=== PATIENT | male | born 1940 | race Caucasian/White ===

== ENCOUNTER 2017-01-12 15:55 | Emergency (ER) | payer MEDICARE, OTHER ==
--- NOTE | 2017-01-12 16:16 | EDM.PDOC ---
ED HPI GENERAL MEDICAL PROBLEM - General Chief Complaint: Neurological Problem Stated Complaint: Confusion Time Seen by Provider: 01/12/17 16:08 Source of Information: Reports: Patient, Family History Limitations: Reports: Altered Mental Status - History of Present Illness INITIAL COMMENTS - FREE TEXT/NARRATIVE: 76 YO WM presents to ER with complaints of mild expressive aphasia which began at 12pm today. Pt has history of renal transplant 3 years ago. Pt woke this am and had breakfast, went to judaism, and after judaism seemed more confused. Pt is currently alert and oriented x 3. Pt denies any weakness or numbness. Pt denies any fever/chills, no chest pain, no shortness of breath. Pt denies any dysuria/ frequency or urgency. Onset: Today Onset Date: 01/12/17 Onset Time: 12:00 Duration: Hour(s): (4) Location: Reports: Generalized Severity: Mild Improves with: Reports: None Worsens with: Reports: None Associated Symptoms: Reports: Confusion. Denies: Chest Pain, Cough, Diaphoresis , Headaches, Nausea/Vomiting, Rash, Shortness of Breath, Syncope, Weakness - Related Data Allergies Allergy/AdvReac Type Severity Reaction Status Date / Time NSAIDS (Non-Steroidal Allergy unknown Verified 01/12/17 16:31 Anti-Inflamma Home Meds: Home Meds Cholecalciferol (Vitamin D3) [Vitamin D3] 2,000 unit PO DAILY 05/20/13 [History] Famotidine 20 mg PO BEDTIME 05/20/13 [History] Insulin Aspart [Novolog Flexpen] 8 unit SQ TIDM PRN 05/20/13 [History] Insulin Detemir [Levemir] 24 units SUBCUT BID 05/20/13 [History] Magnesium Oxide 500 mg PO DAILY 05/20/13 [History] Multivitamin [Multi-Vitamin Daily] 1 tab PO DAILY 05/20/13 [History] Mycophenolate Mofetil [Cellcept] 750 mg PO DAILY 05/20/13 [History] predniSONE 5 mg PO DAILY 05/20/13 [History] Tacrolimus [Prograf] 1 mg PO DAILY 06/08/13 [History] Aspirin [Children's Aspirin] 81 mg PO DAILY 12/13/13 [History] traZODone 50 mg PO BEDTIME 12/13/13 [History] Alendronate [Fosamax] 70 mg PO Q7D@0600 01/12/17 [History] Calcitriol 0.5 mcg PO MOWEFR 01/12/17 [History] Metoprolol Succinate [Toprol XL] 50 mg PO DAILY 01/12/17 [History] Mycophenolate Mofetil [Cellcept] 500 mg PO DAILY@1800 01/12/17 [History] [place]-3 Fatty Acids/Fish Oil [Fish Oil 1,000 mg Softgel] 1 each PO DAILY [History] Tacrolimus [Prograf] 0.5 mg PO DAILY@1800 01/12/17 [History] Social & Family History - Tobacco Use Second Hand Smoke Exposure: No - Alcohol Use Days Per Week of Alcohol Use: 0 - Recreational Drug Use Recreational Drug Use: No Drug Use in Last 12 Months: No - Living Situation & Occupation Living situation: Reports: , Occupation: Retired ED ROS GENERAL - Review of Systems Review Of Systems: See Below Constitutional: Reports: No Symptoms HEENT: Reports: No Symptoms Respiratory: Reports: No Symptoms Cardiovascular: Reports: No Symptoms Endocrine: Reports: No Symptoms GI/Abdominal: Reports: No Symptoms : Reports: No Symptoms Musculoskeletal: Reports: No Symptoms Skin: Reports: No Symptoms Neurological: Reports: Confusion, Change in Speech. Denies: Dizziness, Headache , Numbness, Paresthesia, Pre-Existing Deficit, Seizure, Syncope, Tremors, Trouble Speaking, Difficulty Walking, Weakness, Gait Disturbance Psychiatric: Reports: No Symptoms Hematologic/Lymphatic: Reports: No Symptoms Immunologic: Reports: No Symptoms - Physical Exam Exam: See Below Exam Limited By: No Limitations General Appearance: Alert, WD/WN, No Apparent Distress Eye Exam: Bilateral Eye: EOMI, PERRL Ears: Normal External Exam, Normal Canal, Hearing Grossly Normal, Normal TMs Nose: Normal Inspection, Normal Mucosa, No Blood Throat/Mouth: Normal Inspection, Normal Lips, Normal Teeth, Normal Gums, Normal Oropharynx, Normal Voice, No Airway Compromise Head Exam: Atraumatic, Normocephalic Neck: Normal Inspection, Supple, Non-Tender, Full Range of Motion Respiratory/Chest: No Respiratory Distress, Lungs Clear, Normal Breath Sounds, No Accessory Muscle Use, Chest Non-Tender Cardiovascular: Normal Peripheral Pulses, Regular Rate, Rhythm, No Edema, No Gallop, No JVD, No Murmur, No Rub GI/Abdominal: Normal Bowel Sounds, Soft, Non-Tender, No Organomegaly, No Distention, No Abnormal Bruit, No Mass Neuro Exam (Abbreviated): Alert, Oriented, CN II-XII Intact, Normal Cognition, Normal Gait, Normal Reflexes, No Motor/Sensory Deficits. No: Disoriented, Slow to Respond, Unresponsive, Memory Loss Remote Events, Memory Loss Recent Events, Abnormal Gait, Abnormal Reflexes, Sensory/Motor Deficit Back Exam: Normal Inspection, Full Range of Motion, NT Extremities: Normal Inspection, Normal Range of Motion, Non-Tender, No Pedal Edema, Normal Capillary Refill Psychiatric: Normal Affect, Normal Mood Skin Exam: Warm, Dry, Intact, Normal Color, No Rash EKG INTERPRETATION EKG Date: 01/12/17 Time: 16:19 Rhythm: NSR Rate (Beats/Min): 63 [place]: Normal ST-T: Normal QT: Normal Comparison: NA - No Prior EKG Course - Vital Signs Last Recorded V/S: Last Vital Signs Temp 35.9 C 01/12/17 16:26 Pulse 89 01/12/17 16:26 Resp 18 01/12/17 16:26 BP 167/52 H 01/12/17 16:26 Pulse Ox 97 01/12/17 16:26 - Orders/Labs/Meds Orders: Active Orders 24 hr Category Date Time Status Accu Check [Blood Glucose Check, Bedside] [RC] ONETIME Care 01/12/17 16:17 Active EKG Documentation Completion [RC] ASDIRECTED Care 01/12/17 16:07 Active Chest 1V Frontal [CR] Stat Exams 01/12/17 16:07 Ordered Head wo Cont [CT] Stat Exams 01/12/17 16:07 Ordered Labs: Laboratory Tests 01/12/17 01/12/17 01/12/17 Range/Units 16:22 16:25 16:25 WBC 7.2 (5.0-10.0) 10^3/uL RBC 4.49 L (4.50-6.00) 10^6/uL Hgb 14.1 (13.0-17.0) g/dL Hct 42.5 (40.0-52.0) % MCV 94.8 H (82.0-92.0) fL MCH 31.4 H (27.0-31.0) pg MCHC 33.2 (32.0-36.0) g/dL RDW 12.7 (11.5-14.5) % Plt Count 171 (150-300) 10^3/uL MPV 7.8 (7.4-10.4) fL Neut % (Auto) 64.1 (50.0-70.0) % Lymph % (Auto) 27.5 (20.0-40.0) % [place] % (Auto) 7.2 (2.0-8.0) % Eos % (Auto) 0.5 L (1.0-3.0) % Baso % (Auto) 0.7 (0.0-1.0) % Neut # (Auto) 4.6 (2.5-7.0) 10^3/uL Lymph # (Auto) 2.0 (1.0-4.0) 10^3/uL [place] # (Auto) 0.5 (0.1-0.8) 10^3/uL Eos # (Auto) 0.0 L (0.1-0.3) 10^3/uL Baso # (Auto) 0.1 (0.0-0.1) 10^3/uL PT 9.5 (8.9-11.4) SEC INR 0.9 (0.9-1.1) APTT 24.7 (20.8-31.2) SEC Sodium (136-145) mmol/L Potassium (3.3-5.3) mmol/L Chloride (98-115) mmol/L Carbon Dioxide (21.0-32.0) mmol/L BUN (6-25) mg/dL Creatinine (0.51-1.17) mg/dL Est Cr Clr Drug Dosing mL/min Estimated GFR (MDRD) mL/min Glucose (70-110) mg/dL POC Glucose 174 H (74-106) mg/dl Calcium (8.7-10.3) mg/dL Total Bilirubin (0.2-1.0) mg/dL AST (15-37) U/L ALT (12-78) U/L Alkaline Phosphatase (46-116) IU/L Creatine Kinase (26-276) U/L CK-MB (CK-2) (0.00-4.30) ng/mL Troponin I (0.00-0.070) ng/mL Total Protein (6.4-8.2) g/dL Albumin (3.00-4.80) g/dL Specimen Type Urine Color (YELLOW) Urine Appearance (CLEAR) Urine pH (5.0-9.0) Ur Specific [place] (1.005-1.030) Urine Protein (NEGATIVE) mg/dL Urine Glucose (UA) (NEGATIVE) mg/dL Urine Ketones (NEGATIVE) mg/dL Urine Occult Blood (NEGATIVE) Urine Nitrite (NEGATIVE) Urine Bilirubin (NEGATIVE) Urine Urobilinogen (0.2-1.0) E.U./dL Ur Leukocyte Esterase (NEGATIVE) Urine RBC /HPF Urine WBC /HPF Ur Epithelial Cells /LPF Urine Bacteria (NONE TO FEW) /HPF Urine Mucus (NEGATIVE) /LPF 01/12/17 01/12/17 Range/Units 16:25 16:50 WBC (5.0-10.0) 10^3/uL RBC (4.50-6.00) 10^6/uL Hgb (13.0-17.0) g/dL Hct (40.0-52.0) % MCV (82.0-92.0) fL MCH (27.0-31.0) pg MCHC (32.0-36.0) g/dL RDW (11.5-14.5) % Plt Count (150-300) 10^3/uL MPV (7.4-10.4) fL Neut % (Auto) (50.0-70.0) % Lymph % (Auto) (20.0-40.0) % [place] % (Auto) (2.0-8.0) % Eos % (Auto) (1.0-3.0) % Baso % (Auto) (0.0-1.0) % Neut # (Auto) (2.5-7.0) 10^3/uL Lymph # (Auto) (1.0-4.0) 10^3/uL [place] # (Auto) (0.1-0.8) 10^3/uL Eos # (Auto) (0.1-0.3) 10^3/uL Baso # (Auto) (0.0-0.1) 10^3/uL PT (8.9-11.4) SEC INR (0.9-1.1) APTT (20.8-31.2) SEC Sodium 139 (136-145) mmol/L Potassium 4.7 (3.3-5.3) mmol/L Chloride 104 (98-115) mmol/L Carbon Dioxide 29.5 (21.0-32.0) mmol/L BUN 25 (6-25) mg/dL Creatinine 1.13 (0.51-1.17) mg/dL Est Cr Clr Drug Dosing 52.96 mL/min Estimated GFR (MDRD) > 60 mL/min Glucose 175 H (70-110) mg/dL POC Glucose (74-106) mg/dl Calcium 9.3 (8.7-10.3) mg/dL Total Bilirubin 0.7 (0.2-1.0) mg/dL AST 16 (15-37) U/L ALT 25 (12-78) U/L Alkaline Phosphatase 61 (46-116) IU/L Creatine Kinase 43 (26-276) U/L CK-MB (CK-2) 1.50 (0.00-4.30) ng/mL Troponin I 0.07 (0.00-0.070) ng/mL Total Protein 6.9 (6.4-8.2) g/dL Albumin 3.59 (3.00-4.80) g/dL Specimen Type Urinvoid Urine Color Yellow (YELLOW) Urine Appearance Clear (CLEAR) Urine pH 7.0 (5.0-9.0) Ur Specific [place] 1.025 (1.005-1.030) Urine Protein Trace H (NEGATIVE) mg/dL Urine Glucose (UA) 100 H (NEGATIVE) mg/dL Urine Ketones Negative (NEGATIVE) mg/dL Urine Occult Blood Negative (NEGATIVE) Urine Nitrite Negative (NEGATIVE) Urine Bilirubin Negative (NEGATIVE) Urine Urobilinogen 0.2 (0.2-1.0) E.U./dL Ur Leukocyte Esterase Negative (NEGATIVE) Urine RBC Not seen /HPF Urine WBC 0-5 /HPF Ur Epithelial Cells Rare /LPF Urine Bacteria Rare (NONE TO FEW) /HPF Urine Mucus Rare H (NEGATIVE) /LPF - Radiology Interpretation Free Text/Narrative:: CT Head- Atrophy, NAD CXR- NAD Departure - Departure Time of Disposition: 17:51 Disposition: Home, Self-Care 01 Condition: Good Clinical Impression: TIA (transient ischemic attack) Qualifiers: Transient cerebral ischemia type: unspecified Qualified Code(s): G45.9 - Transient cerebral ischemic attack, unspecified - Discharge Information Instructions: Transient Ischemic Attack Referrals: Dayanara Fajardo MD [Primary Care Provider] - Forms: ED Department Discharge - My Orders Last 24 Hours: My Active Orders 01/12/17 16:07 EKG Documentation Completion [RC] ASDIRECTED Chest 1V Frontal [CR] Stat Head wo Cont [CT] Stat 01/12/17 16:17 Accu Check [Blood Glucose Check, Bedside] [RC] ONETIME - Assessment/Plan Last 24 Hours: My Active Orders 01/12/17 16:07 EKG Documentation Completion [RC] ASDIRECTED Chest 1V Frontal [CR] Stat Head wo Cont [CT] Stat 01/12/17 16:17 Accu Check [Blood Glucose Check, Bedside] [RC] ONETIME Assessment:: 1. TIA vs sundowner syndrome 2. hyperglycemia Plan: 1. discussed with Darvin Patterson who will evaluate as an outpatient for further evaluation and treatment 2. Daughter Kayleigh does not want patient admitted 3. supportive care 4. return to ER for wrosening symptoms
[2017-01-12 16:30] VITALS: BP 167/52
[2017-01-12 17:23] LABS: CHLORIDE,CL 104 mmol/L (98-115); SODIUM,NA 139 mmol/L (136-145)
== END 2017-01-12 18:00 | disposition home or self-care (01) ==
LOC: KA.ED 15:55
DX: G45.9 Transient cerebral ischemic attack, unspecified (principal); Z79.899 Other long term (current) drug therapy; Z88.8 Allergy status to other drugs, medicaments and biological substances
CPT/HCPCS: 36415; 70450; 71010; 80053; 81001; 82550; 82553; 82962; 84484; 85025; 85610; 85730; 93005; 99284

== ENCOUNTER 2020-08-19 01:45 | Emergency (ER) | payer MEDICARE, OTHER ==
--- NOTE | 2020-08-19 02:04 | EDM.PDOC ---
ED HPI GENERAL MEDICAL PROBLEM - General Chief Complaint: General Stated Complaint: fall Time Seen by Provider: 08/19/20 01:56 Source of Information: Reports: Patient, EMS, Family, Other (spouse) History Limitations: Reports: No Limitations - History of Present Illness INITIAL COMMENTS - FREE TEXT/NARRATIVE: Patient presents to the emergency room with EMS for a fall off the bathroom toilet 1 hour prior to arrival. Patient was in the bathroom having a bowel movement the spouse was helping him get cleaned up the patient stood up lost his balance with his walker and fell on the floor falling onto his right shoulder. Patient did hit his head on something on the way down. There was no loss of consciousness. The patient did not become dizzy or have a near syncopal episode . It was solely cause he lost his balance due to his chronic weakness and mobility. There is a small abrasion with some bruising to his left cheek and forehead area. He has a left elbow skin tear. His main complaint is his right shoulder pain and right forearm pain. 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 Patient had a angiogram completed to his right leg as he has poor vascularization has a decubitus ulcer to his right heel at an advanced stage. He is having an appointment coming up to be have maggots placed on it. Patient's pain is mild at rest however when he moves his right shoulder it is more moderate. Patient has history of renal transplant , history of diabetes and recently he was placed on Plavix 2 weeks ago. - Related Data Allergies Allergy/AdvReac Type Severity Reaction Status Date / Time NSAIDS (Non-Steroidal Allergy unknown Verified 08/19/20 02:19 Anti-Inflamma Home Meds: Home Meds Cholecalciferol (Vitamin D3) [Vitamin D3] 2,000 unit PO DAILY 05/20/13 [History] Famotidine 20 mg PO BEDTIME 05/20/13 [History] Insulin Aspart [Novolog Flexpen] 8 unit SQ TIDM PRN 05/20/13 [History] Insulin Detemir [Levemir] 24 units SUBCUT BID 05/20/13 [History] Magnesium Oxide 500 mg PO DAILY 05/20/13 [History] Multivitamin [Multi-Vitamin Daily] 1 tab PO DAILY 05/20/13 [History] mycophenolate mofetiL [Cellcept] 750 mg PO DAILY 05/20/13 [History] predniSONE 5 mg PO DAILY 05/20/13 [History] Tacrolimus [Prograf] 1 mg PO DAILY 06/08/13 [History] Aspirin [Children's Aspirin] 81 mg PO DAILY 12/13/13 [History] traZODone 50 mg PO BEDTIME 12/13/13 [History] Alendronate [Fosamax] 70 mg PO Q7D@0600 01/12/17 [History] Calcitriol 0.5 mcg PO MOWEFR 01/12/17 [History] Metoprolol Succinate [Toprol XL] 50 mg PO DAILY 01/12/17 [History] [place]-3 Fatty Acids/Fish Oil [Fish Oil 1,000 mg Softgel] 1 each PO DAILY 01/12/17 [History] Tacrolimus [Prograf] 0.5 mg PO DAILY@1800 01/12/17 [History] mycophenolate mofetiL [Cellcept] 500 mg PO DAILY@1800 01/12/17 [History] Social & Family History - Caffeine Use Caffeine Use: Reports: Tea - Living Situation & Occupation Living situation: Reports: , Occupation: Retired ED ROS GENERAL - Review of Systems Review Of Systems: See Below Constitutional: Reports: Weakness, Fatigue HEENT: Reports: No Symptoms Respiratory: Reports: No Symptoms Cardiovascular: Reports: No Symptoms GI/Abdominal: Reports: No Symptoms. Denies: Vomiting Musculoskeletal: Reports: Shoulder Pain, Arm Pain, Other (right shoulder pain, rt forearm pain). Denies: Neck Pain, Back Pain, Leg Pain Skin: Reports: Bruising, Wound, Other (left elbow skin tear, left facial abrasion, scrattered bruising on abdomen and legs ) Neurological: Denies: Confusion, Dizziness, Headache, Syncope, Tremors, Trouble Speaking, Change in Speech Hematologic/Lymphatic: Reports: Easy Bruising, Other (on plavix) ED EXAM, GENERAL - Physical Exam Exam: See Below Exam Limited By: No Limitations General Appearance: Alert, WD/WN, No Apparent Distress Eye Exam: Bilateral Eye: EOMI, PERRL Ear Exam: Bilateral Ear: Other (neg for hemotympanum ) Nose: Normal Inspection, Normal Mucosa Throat/Mouth: Normal Inspection, Normal Oropharynx, Normal Voice, No Airway Compromise Head: Normocephalic, Other (left sided facial abrasion ) Neck: Normal Inspection, Supple, Non-Tender, Full Range of Motion. No: Tender Midline Respiratory/Chest: No Respiratory Distress, Lungs Clear, Normal Breath Sounds, No Accessory Muscle Use Cardiovascular: Normal Peripheral Pulses, Regular Rate, Rhythm, Systolic Murmur Peripheral Pulses: 2+: Radial (L), Radial (R) GI/Abdominal: Normal Bowel Sounds, Soft, Non-Tender, Pelvis Stable Back Exam: Normal Inspection, Full Range of Motion Extremities: Normal Range of Motion, Non-Tender, No Pedal Edema, Other (DNV intact upper extremities. pain generalized palpation to his overall right shoulder joint. ) Neurological: Alert, Oriented, CN II-XII Intact, Normal Cognition, No Motor/Sensory Deficits Psychiatric: Normal Affect, Normal Mood Skin Exam: Warm, Dry, Pallor, Wound/Incision, Other (chronic heel ucler advanced stage). No: Diaphoretic Course - Orders/Labs/Meds Orders: Active Orders 24 hr Category Date Time Status Glucose [Blood Glucose Check, Bedside] [RC] ONETIME Care 08/19/20 02:10 Ordered Forearm 2V Rt [CR] Stat Exams 08/19/20 02:21 Ordered Head wo Cont [CT] Stat Exams 08/19/20 02:00 Ordered Shoulder Comp Rt [CR] Stat Exams 08/19/20 01:54 Ordered - Re-Assessments/Exams Free Text/Narrative Re-Assessment/Exam: 08/19/20 02:38 Due to patient being on Plavix obvious head trauma CT scan head provided. X-ray of right shoulder and forearm also done. No signs of acute fracture there is some signs of arthritis to his right shoulder. Patient has small skin tear non- repairable to his left elbow. Departure - Departure Time of Disposition: 02:47 Disposition: Home, Self-Care 01 Condition: Good Clinical Impression: Contusion of right shoulder, initial encounter, Contusion of right forearm, initial encounter Fall Qualifiers: Encounter type: initial encounter Qualified Code(s): W19.XXXA - Unspecified fall, initial encounter Skin tear of elbow without complication Qualifiers: Encounter type: initial encounter Laterality: left Qualified Code(s): S51.012A - Laceration without foreign body of left elbow, initial encounter Head injury due to trauma Qualifiers: Encounter type: initial encounter Qualified Code(s): S09.90XA - Unspecified injury of head, initial encounter - Discharge Information *PRESCRIPTION DRUG MONITORING PROGRAM REVIEWED*: No *COPY OF PRESCRIPTION DRUG MONITORING REPORT IN PATIENT CHARLEY: No Instructions: Skin Tear, [id number], Head Injury, Adult, Contusion, [id number] Forms: ED Department Discharge Additional Instructions: f/u with your PCP with a phone call Friday for close f/u. have a low threshold on returning to ER for any new or worsening symptoms as discussed. - My Orders Last 24 Hours: My Active Orders 08/19/20 01:54 Shoulder Comp Rt [CR] Stat 08/19/20 02:00 Head wo Cont [CT] Stat 08/19/20 02:10 Glucose [Blood Glucose Check, Bedside] [RC] ONETIME 08/19/20 02:21 Forearm 2V Rt [CR] Stat - Assessment/Plan Last 24 Hours: My Active Orders 08/19/20 01:54 Shoulder Comp Rt [CR] Stat 08/19/20 02:00 Head wo Cont [CT] Stat 08/19/20 02:10 Glucose [Blood Glucose Check, Bedside] [RC] ONETIME 08/19/20 02:21 Forearm 2V Rt [CR] Stat
[2020-08-19 02:52] VITALS: BP 121/54; PULSE 61
[2020-08-19] MEDS: Bacitracin/Neomycin/Polymyxin B Oint 28.4 GM Tube TOP ONE (03:00)
[2020-08-19] MEDS: Acetaminophen 500 MG Tab PO ONE (03:32)
--- NOTE | 2020-08-19 08:00 | CR ---
[id number] RAD/RAD Forearm Right 2V EXAM: 2 VIEWS RIGHT FOREARM. INDICATION: FALL COMPARISON: None. DISCUSSION: No fracture, dislocation or other acute osseous abnormality. Question old fracture of the distal right radius. Vascular calcifications. IMPRESSION: 1. No acute osseous abnormalities. Law Chau DO 08/19/20 0758 Thank you for allowing us to participate in the care of your patient.
--- NOTE | 2020-08-19 08:14 | CT ---
[id number] CT/CT Head WO IV EXAM: CT Head WO IV CLINICAL DATA: FALL; COMPARISON STUDY: None FINDINGS: No intracranial hemorrhage, extra-axial fluid collection, mass, or acute ischemia. Generalized parenchymal atrophy with scattered areas of nonspecific white matter disease, commonly seen as sequela of chronic microvascular ischemia. Soft tissues are unremarkable. Chronic changes of the left temporomandibular joint joint. Paranasal sinuses and mastoid air cells are clear. IMPRESSION: No acute intracranial findings. Law Chau DO 08/19/20 0814 Thank you for allowing us to participate in the care of your patient.
== END 2020-08-19 03:15 | disposition home or self-care (01) ==
LOC: KA.ED 01:45
DX: S09.90XA Unspecified injury of head, initial encounter (principal); S51.012A Laceration without foreign body of left elbow, initial encounter; S40.011A Contusion of right shoulder, initial encounter; S50.11XA Contusion of right forearm, initial encounter; S30.1XXA Contusion of abdominal wall, initial encounter; S80.11XA Contusion of right lower leg, initial encounter; S80.12XA Contusion of left lower leg, initial encounter; S00.81XA Abrasion of other part of head, initial encounter; Z88.6 Allergy status to analgesic agent; Z79.4 Long term (current) use of insulin; Z79.82 Long term (current) use of aspirin; Z79.899 Other long term (current) drug therapy; W18.11XA Fall from or off toilet without subsequent striking against object, initial encounter; Y92.002 Bathroom of unspecified non-institutional (private) residence as the place of occurrence of the external cause
CPT/HCPCS: 70450; 73030-RT; 73090-RT; 82962; 99284; 99284-25; A9270-GY

== ENCOUNTER 2020-09-05 17:14 | Inpatient (IN) | payer MEDICARE, OTHER ==
[2020-09-05] MEDS ORDERED: Sodium Chloride 0.9% 1,000 ML ONE ×2 (17:37→18:03)
[2020-09-05] MEDS ORDERED: Sodium Chloride 0.9% 1,000 ML IV ONE ×3 (18:01→18:26)
--- NOTE | 2020-09-05 18:07 | EDM.PDOC ---
ED HPI GENERAL MEDICAL PROBLEM - General Chief Complaint: General Stated Complaint: WEAKNESS, CONFUSION Time Seen by Provider: 09/05/20 17:47 Source of Information: Reports: Patient, Family ( and daughter) History Limitations: Reports: No Limitations - History of Present Illness INITIAL COMMENTS - FREE TEXT/NARRATIVE: Patient presents with fever, hypotension, increased confusion and chronic right heel ulcer. He had been on Doxycycline po for two weeks until one month ago. Since then he has had medical worms/maggots debriding the wound. He has diabetes and daughter, a local pharmacist, says it has been well-controlled for quite awhile. No history of CHF. Blood pressure normally runs pretty consistently around 120/50's says. Daughter says that MRSA was cultured from the heel wound two months ago. He has an appointment scheduled with orthopedics in [place] tomorrow. Last week they noticed some increased confusion and suspected a UTI. UA was clear but he was dehydrated. No fever until today. He is on long-term immunosuppression for kidney transplant 8 years ago. - Related Data Allergies Allergy/AdvReac Type Severity Reaction Status Date / Time NSAIDS (Non-Steroidal Allergy unknown Verified 08/19/20 02:19 Anti-Inflamma Home Meds: Home Meds Cholecalciferol (Vitamin D3) [Vitamin D3] 2,000 unit PO DAILY 05/20/13 [History] Famotidine 20 mg PO BEDTIME 05/20/13 [History] Insulin Aspart [Novolog Flexpen] 6 unit SQ TIDM 05/20/13 [History] Insulin Detemir [Levemir] 6 units SUBCUT BID 05/20/13 [History] Magnesium Oxide 500 mg PO BEDTIME 05/20/13 [History] predniSONE 5 mg PO DAILY 05/20/13 [History] Tacrolimus [Prograf] 1 mg PO DAILY 06/08/13 [History] Alendronate [Fosamax] 35 mg PO Q7D@0600 01/12/17 [History] Calcitriol 0.25 mcg PO MOWEFR 01/12/17 [History] Metoprolol Succinate [Toprol XL] 50 mg PO DAILY 01/12/17 [History] [place]-3 Fatty Acids/Fish Oil [Fish Oil 1,000 mg Softgel] 1 each PO DAILY 01/12/17 [History] Tacrolimus [Prograf] 0.5 mg PO BEDTIME 01/12/17 [History] mycophenolate mofetiL [Cellcept] 1,000 mg PO DAILY@1000,2200 01/12/17 [History] Acetaminophen [Tylenol Arthritis] 650 - 1,300 mg PO DAILY PRN 08/19/20 [History] Apixaban [Eliquis] 2.5 mg PO BID 08/19/20 [History] Clopidogrel Bisulfate [Plavix] 75 mg PO DAILY 08/19/20 [History] Cyanocobalamin (Vitamin B-12) [B-12] 1,000 mcg PO DAILY 08/19/20 [History] Donepezil HCl [Aricept] 10 mg PO BEDTIME 08/19/20 [History] Mirtazapine [Remeron] 15 mg PO BEDTIME 08/19/20 [History] Pravastatin [Pravachol] 20 mg PO BEDTIME 08/19/20 [History] Sodium Hypochlorite [Dakin's] 1 applic TOP DAILY 08/19/20 [History] traMADol [Ultram] 50 mg PO BID PRN 08/19/20 [History] Social & Family History - Caffeine Use Caffeine Use: Reports: Tea - Living Situation & Occupation Living situation: Reports: , Occupation: Retired ED ROS GENERAL - Review of Systems Review Of Systems: See Below Constitutional: Reports: Fever (not before today), Malaise, Weakness HEENT: Denies: Ear Pain, Vision Change Respiratory: Denies: Shortness of Breath, Cough Cardiovascular: Denies: Chest Pain, Syncope GI/Abdominal: Reports: Abdominal Pain (did earlier today but not now), Vomiting (this afternoon once) Musculoskeletal: Reports: Foot Pain. Denies: Neck Pain, Shoulder Pain, Arm Pain, Back Pain, Hand Pain, Leg Pain Skin: Denies: Cyanosis, Jaundice, Mottled, Pallor, Diaphoresis Neurological: Reports: Confusion. Denies: Dizziness, Headache, Seizure, Syncope, Trouble Speaking Psychiatric: Denies: Agitation, Anxiety ED EXAM, GENERAL - Physical Exam Exam: See Below Exam Limited By: No Limitations General Appearance: Alert, WD/WN, No Apparent Distress Eye Exam: Bilateral Eye: EOMI, Normal Inspection, PERRL Ears: Normal External Exam, Hearing Grossly Normal Nose: Normal Inspection, No Blood Throat/Mouth: Normal Inspection, Normal Voice, No Airway Compromise Head: Atraumatic, Normocephalic Neck: Normal Inspection, Full Range of Motion Respiratory/Chest: No Respiratory Distress, Lungs Clear, Normal Breath Sounds (slightly decreased) Cardiovascular: Regular Rate, Rhythm, No Murmur GI/Abdominal: Normal Bowel Sounds, Soft, Non-Tender, No Organomegaly, No Distention Back Exam: Normal Inspection, Full Range of Motion Extremities: No Pedal Edema, Other (right heel has deep posterior wound about 4 cm in size) Neurological: Alert, Oriented (fair) Psychiatric: Normal Affect, Normal Mood Skin Exam: Warm, Dry, Normal Color, No Rash Course - Orders/Labs/Meds Orders: Active Orders 24 hr Category Date Time Status Chest 1V Frontal [CR] Stat Exams 09/05/20 17:59 Ordered CBC WITH AUTO DIFF [HEME] Stat Lab 09/05/20 17:59 Ordered COMPREHENSIVE METABOLIC PN,CMP [CHEM] Stat Lab 09/05/20 17:59 Ordered CRP [C-REACTIVE PROTEIN] [CHEM] Stat Lab 09/05/20 17:59 Ordered CULTURE BLOOD [BC] Stat Lab 09/05/20 18:01 Ordered CULTURE BLOOD [BC] Stat Lab 09/05/20 18:01 Ordered LACTIC ACID [CHEM] Stat Lab 09/05/20 17:59 Ordered Sodium Chloride 0.9% @ 999 MLS/HR (1000ml) Med 09/05/20 18:01 Ordered Sodium Chloride 0.9% [Normal Saline] 1,000 ml IV .BOLUS Blood Culture x2 Reflex Set [OM.PC] Stat Oth 09/05/20 17:59 Ordered Meds: Medications Discontinued Medications Generic Name Dose Route Start Last Admin Trade Name Ricki PRN Reason Stop Dose Admin Sodium Chloride Confirm 09/05/20 17:37 Normal Saline Administered 09/05/20 17:38 Dose 1,000 mls @ as directed .ROUTE .STK-MED ONE - Re-Assessments/Exams Free Text/Narrative Re-Assessment/Exam: 09/05/20 18:22 CRP is 5.1, Lactic acid is 2.4, WBC is 8.26 with mild left shift. Blood cultures pending. BP had dropped into 90's/50's soon after arrival. 09/05/20 18:49 Blood pressure is improving with second liter of fluids running. Patient is stable. Discussed findings with daughter who discussed options with family and want to admit here instead of [place]. They would like to see if Dr. Tellez could debride wound tomorrow and make plans for a wound vac. Discussed case with Dr. Tellez who accepts for admission and wants Vanco IV and Bactrim po started now. He will plan to debride tomorrow and place wound vac as soon as appropriate afterward. Departure - Departure Time of Disposition: 18:46 Disposition: Admitted As Inpatient 65 Condition: Good Clinical Impression: Sepsis associated hypotension Fever Qualifiers: Encounter type: initial encounter Chronic heel ulcer Qualifiers: Laterality: right Non-pressure ulcer stage: unspecified non-pressure ulcer stage Qualified Code(s): L97.419 - Non-pressure chronic ulcer of right heel and midfoot with unspecified severity - Discharge Information Referrals: Kayleigh Jerez MD [Primary Care Provider] - - My Orders Last 24 Hours: My Active Orders 09/05/20 17:59 Chest 1V Frontal [CR] Stat CBC WITH AUTO DIFF [HEME] Stat COMPREHENSIVE METABOLIC PN,CMP [CHEM] Stat CRP [C-REACTIVE PROTEIN] [CHEM] Stat LACTIC ACID [CHEM] Stat Blood Culture x2 Reflex Set [OM.PC] Stat 09/05/20 18:01 CULTURE BLOOD [BC] Stat CULTURE BLOOD [BC] Stat Sodium Chloride 0.9% @ 999 MLS/HR (1000ml) Sodium Chloride 0.9% [Normal Saline] 1,000 ml IV .BOLUS - Assessment/Plan Last 24 Hours: My Active Orders 09/05/20 17:59 Chest 1V Frontal [CR] Stat CBC WITH AUTO DIFF [HEME] Stat COMPREHENSIVE METABOLIC PN,CMP [CHEM] Stat CRP [C-REACTIVE PROTEIN] [CHEM] Stat LACTIC ACID [CHEM] Stat Blood Culture x2 Reflex Set [OM.PC] Stat 09/05/20 18:01 CULTURE BLOOD [BC] Stat CULTURE BLOOD [BC] Stat Sodium Chloride 0.9% @ 999 MLS/HR (1000ml) Sodium Chloride 0.9% [Normal Saline] 1,000 ml IV .BOLUS
[2020-09-05 18:18] LABS: ANION GAP 13.5 mmol/L (5-15); CHLORIDE,CL 105 mmol/L (98-107); SODIUM,NA 141 mmol/L (136-145)
[2020-09-05] MEDS ORDERED: Sulfamethoxazole/Trimethoprim 800-160 MG Tab PO ONE (18:42)
--- NOTE | 2020-09-05 19:12 | CR ---
[id number] RAD/RAD Chest PA or AP 1V EXAM: FRONTAL CHEST INDICATION: Fever and hypertension. COMPARISON: January 12, 2017. DISCUSSION: Evaluation mildly limited by hypoinflation. Mild bibasilar atelectasis and/or infiltrates. Borderline heart size. No edema or effusions are identified. Sternotomy. IMPRESSION: 1. Mild bibasilar atelectasis and/or infiltrates. Dao Rose MD 09/05/20 1783 Thank you for allowing us to participate in the care of your patient.
[2020-09-05] MEDS ORDERED: Glucagon,Human Recombinant 1 MG Vial IM PRN (20:50)
[2020-09-05] MEDS ORDERED: 50% Dextrose in Water 50 ML Syringe IV PRN (20:50)
[2020-09-05] MEDS: Insulin Aspart 100 Units/ML 3 ML Pen SUBCUT SCH (21:20)
[2020-09-05] MEDS: Magnesium Oxide 500 MG Tab PO SCH (21:28)
[2020-09-05] MEDS: Donepezil 10 MG Tab PO SCH (21:28)
[2020-09-05] MEDS: Mirtazapine 15 MG Tab PO SCH (21:28)
[2020-09-05] MEDS: TACROLIMUS 0.5 MG PO SCH (21:29)
[2020-09-05] MEDS: MYCOPHENOLATE 500 MG PO SCH (21:29)
[2020-09-05] MEDS: PRAVASTATIN 20 MG PO SCH (21:29)
[2020-09-05] MEDS: Famotidine 20 MG Tab PO SCH (21:29)
[2020-09-05] MEDS: Sodium Chloride 0.9% 1,000 ML IV SCH (22:49)
[2020-09-06] MEDS: Acetaminophen 650 MG Tab.ER PO PRN (02:47)
--- NOTE | 2020-09-06 09:19 | PCM.HP.2 ---
H&P History of Present Illness - General Date of Service: 09/06/20 Admit Problem/Dx: Admission Diagnosis/Problem Admission Diagnosis/Problem Sepsis Source of Information: Patient, Old Records, RN - Related Data Allergies/Adverse Reactions: Allergies Allergy/AdvReac Type Severity Reaction Status Date / Time NSAIDS (Non-Steroidal Allergy unknown Verified 09/05/20 19:11 Anti-Inflamma Home Medications: Home Meds Cholecalciferol (Vitamin D3) [Vitamin D3] 2,000 unit PO QAM 05/20/13 [History] Famotidine 20 mg PO BEDTIME 05/20/13 [History] Insulin Aspart [Novolog Flexpen] 6 unit SQ TIDM 05/20/13 [History] Insulin Detemir [Levemir] 8 units SUBCUT BID 05/20/13 [History] Magnesium Oxide 500 mg PO BEDTIME 05/20/13 [History] predniSONE 5 mg PO QAM 05/20/13 [History] Tacrolimus [Prograf] 1 mg PO QAM 06/08/13 [History] Calcitriol 0.25 mcg PO MOWEFR 01/12/17 [History] Metoprolol Succinate [Toprol XL] 50 mg PO QAM 01/12/17 [History] [place]-3 Fatty Acids/Fish Oil [Fish Oil 1,000 mg Softgel] 1 each PO QAM 01/12/17 [History] Tacrolimus [Prograf] 0.5 mg PO BEDTIME 01/12/17 [History] mycophenolate mofetiL [Cellcept] 1,000 mg PO DAILY@1000,2200 01/12/17 [History] Acetaminophen [Tylenol Arthritis] 650 - 1,300 mg PO DAILY PRN 08/19/20 [History] Clopidogrel Bisulfate [Plavix] 75 mg PO QAM 08/19/20 [History] Cyanocobalamin (Vitamin B-12) [B-12] 1,000 mcg PO QAM 08/19/20 [History] Donepezil HCl [Aricept] 10 mg PO BEDTIME 08/19/20 [History] Mirtazapine [Remeron] 15 mg PO BEDTIME 08/19/20 [History] Pravastatin [Pravachol] 20 mg PO BEDTIME 08/19/20 [History] Sodium Hypochlorite [Dakin's] 1 applic TOP DAILY 03/20/21 [History] Past Medical History HEENT History: Reports: Hard of Hearing Cardiovascular History: Reports: Bypass, Other (See Below) Other Cardiovascular History: Peripheral artery disease Respiratory History: Reports: Sleep Apnea Gastrointestinal History: Reports: GERD Genitourinary History: Reports: Other (See Below) Other Genitourinary History: Kidney transplant 8 yrs ago Neurological History: Reports: TIA, Other (See Below) Other Neuro History: mild cognitive impairment Psychiatric History: Reports: Other (See Below) Other Psychiatric History: mild cognitive impairment Endocrine/Metabolic History: Reports: Diabetes, Type II, Hypomagnesemia Hematologic History: Reports: B12 Deficiency Immunologic History: Reports: Solid Organ Transplant Oncologic (Cancer) History: Reports: Squamous Cell Carcinoma - Infectious Disease History Infectious Disease History: Reports: MRSA - Past Surgical History Other HEENT Surgeries/Procedures: 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 Denies: Fatigue, Decreased Appetite HEENT: Reports: No Symptoms Pulmonary: Reports: No Symptoms Cardiovascular: Reports: No Symptoms Gastrointestinal: Denies: Diarrhea Genitourinary: Denies: Dysuria Musculoskeletal: Reports: Foot Pain Skin: Reports: Dryness, Bruising, Wound (Wound chronic right heel pressure ulcer) Psychiatric: Denies: Confusion Neurological: Reports: Pre-Existing Deficit, Weakness, Gait Disturbance. Denies: Confusion Exam - Exam Exam: See Below - Vital Signs Vital Signs: Last Vital Signs Temp 98.4 F 09/06/20 06:16 Pulse 64 09/06/20 06:16 Resp 16 09/06/20 06:16 BP 103/45 L 09/06/20 06:16 Pulse Ox 94 L 09/06/20 06:16 Weight: 150 lb 9.6 oz - Exam Quality Assessment: Skin Breakdown. No: Supplemental Oxygen General: Alert, Oriented, Cooperative. No: Mild Distress Neck: Supple Lungs: Clear to Auscultation, Normal Respiratory Effort Cardiovascular: Regular Rate, Regular Rhythm GI/Abdominal Exam: Normal Bowel Sounds, Soft Back Exam: No: CVA Tenderness (L), CVA Tenderness (R) Extremities: Normal Capillary Refill Skin: Dry, Other (Multiple skin bruising, dryness) Neurological: Normal Speech, Normal Tone, Sensation Intact Neuro Extensive - Mental Status: Alert, Oriented x3 Neuro Extensive - Motor, Sensory, Reflexes: No: Dysarthria Psychiatric: Alert - Patient Data Lab Results Last 24 hrs: Laboratory Results - last 24 hr 09/05/20 09/05/20 09/05/20 Range/Units 17:40 17:40 17:40 WBC 8.26 (5.00-10.00) 10^3/uL RBC 2.96 L (4.50-6.00) 10^6/uL Hgb 9.7 L (13.0-17.0) g/dL Hct 31.6 L (40.0-52.0) % MCV 106.8 H D (82.0-92.0) fL MCH 32.8 H (27.0-31.0) pg MCHC 30.7 L (32.0-36.0) g/dL RDW 15.6 H (11.5-14.5) % Plt Count 281 (150-400) 10^3/uL MPV 9.6 (7.4-10.4) fL Immature Gran % (Auto) 0.1 (0.0-5.0) % Neut % (Auto) 77.5 H (50.0-70.0) % Lymph % (Auto) 15.0 L (20.0-40.0) % [place] % (Auto) 7.3 (2.0-8.0) % Eos % (Auto) 0.1 L (1.0-3.0) % Baso % (Auto) 0.0 (0.0-1.0) % Neut # (Auto) 6.40 (2.50-7.00) 10^3/uL Lymph # (Auto) 1.24 (1.00-4.00) 10^3/uL [place] # (Auto) 0.60 (0.10-0.80) 10^3/uL Eos # (Auto) 0.01 L (0.10-0.30) 10^3/uL Baso # (Auto) 0.00 (0.00-0.10) 10^3/uL Immature Gran # (Auto) 0.01 (0.00-0.50) 10^3/uL Sodium 141 (136-145) mmol/L Potassium 4.7 (3.5-5.1) mmol/L Chloride 105 (98-107) mmol/L Carbon Dioxide 27.2 (21.0-32.0) mmol/L Anion Gap 13.5 (5-15) mmol/L BUN 26 H (7-18) mg/dL Creatinine 0.94 (0.51-1.17) mg/dL Est Cr Clr Drug Dosing 57.34 mL/min Estimated GFR (MDRD) > 60 mL/min Glucose 131 (70-140) mg/dL Lactic Acid 2.4 H (0.4-2.0) mmol/L Calcium 8.9 (8.7-10.3) mg/dL Total Bilirubin 0.7 (0.2-1.0) mg/dL AST 13 L (15-37) U/L ALT 12 L (14-63) U/L Alkaline Phosphatase 68 (46-116) U/L C-Reactive Protein 5.1 H (0.0-0.9) mg/dL Total Protein 5.9 L (6.4-8.2) g/dL Albumin 2.63 L (3.40-5.00) g/dL SARS CoV-2 RNA Rapid LANNY (NEGATIVE) 09/05/20 Range/Units 18:41 WBC (5.00-10.00) 10^3/uL RBC (4.50-6.00) 10^6/uL Hgb (13.0-17.0) g/dL Hct (40.0-52.0) % MCV (82.0-92.0) fL MCH (27.0-31.0) pg MCHC (32.0-36.0) g/dL RDW (11.5-14.5) % Plt Count (150-400) 10^3/uL MPV (7.4-10.4) fL Immature Gran % (Auto) (0.0-5.0) % Neut % (Auto) (50.0-70.0) % Lymph % (Auto) (20.0-40.0) % [place] % (Auto) (2.0-8.0) % Eos % (Auto) (1.0-3.0) % Baso % (Auto) (0.0-1.0) % Neut # (Auto) (2.50-7.00) 10^3/uL Lymph # (Auto) (1.00-4.00) 10^3/uL [place] # (Auto) (0.10-0.80) 10^3/uL Eos # (Auto) (0.10-0.30) 10^3/uL Baso # (Auto) (0.00-0.10) 10^3/uL Immature Gran # (Auto) (0.00-0.50) 10^3/uL Sodium (136-145) mmol/L Potassium (3.5-5.1) mmol/L Chloride (98-107) mmol/L Carbon Dioxide (21.0-32.0) mmol/L Anion Gap (5-15) mmol/L BUN (7-18) mg/dL Creatinine (0.51-1.17) mg/dL Est Cr Clr Drug Dosing mL/min Estimated GFR (MDRD) mL/min Glucose (70-140) mg/dL Lactic Acid (0.4-2.0) mmol/L Calcium (8.7-10.3) mg/dL Total Bilirubin (0.2-1.0) mg/dL AST (15-37) U/L ALT (14-63) U/L Alkaline Phosphatase (46-116) U/L C-Reactive Protein (0.0-0.9) mg/dL Total Protein (6.4-8.2) g/dL Albumin (3.40-5.00) g/dL SARS CoV-2 RNA Rapid LANNY Negative (NEGATIVE) Result Diagrams: 09/06/20 11:30 09/06/20 11:30 Sepsis Event Note - Evaluation Sepsis Screening Result: No Definite Risk - Focused Exam Vital Signs: Vital Signs Temp Pulse Resp BP Pulse Ox 09/06/20 06:16 98.4 F 64 16 103/45 L 94 L 09/06/20 02:45 98.5 F 82 16 164/66 H 94 L 09/05/20 22:33 98.5 F 72 16 116/50 L 94 L Problem List Initiated/Reviewed/Updated: Yes Orders Last 24hrs: Active Orders 24 hr Category Date Time Status Patient Status [ADT] Routine ADT 09/05/20 18:48 Active Blood Glucose Check, Bedside [RC] QIDACANDBED Care 09/05/20 20:52 Active CULTURE BLOOD [BC] Stat Lab 09/05/20 17:55 Received CULTURE BLOOD [BC] Stat Lab 09/05/20 18:00 Received Acetaminophen [Tylenol Arthritis Pain] Med 09/05/20 20:38 Active 650 mg PO Q8H PRN Cholecalciferol (Vitamin D3) [Vitamin D3] Med 09/06/20 09:00 Active 50 mcg PO DAILY Clopidogrel [Plavix] Med 09/06/20 09:00 Active 75 mg PO QAM Cyanocobalamin (Vitamin B12) [Vitamin B12] Med 09/06/20 09:00 Active 500 mcg PO DAILY Dextrose 50% in Water Med 09/05/20 20:50 Active 50 ml IV ASDIRECTED PRN Donepezil [Aricept] Med 09/05/20 21:00 Active 10 mg PO BEDTIME Famotidine [Pepcid] Med 09/05/20 21:00 Active 20 mg PO BEDTIME Glucagon,Human Recombinant [GlucaGen] Med 09/05/20 20:50 Active 1 mg IM ASDIRECTED PRN Insulin Aspart [NovoLOG] Med 09/05/20 22:00 Active See Protocol SUBCUT WITHMEALSANDBED Insulin Glarg,Human.Rec.Analog [LantUS Solostar] Med 09/06/20 09:00 Active 8 units SUBCUT BID Magnesium Oxide Med 09/05/20 21:00 Active 500 mg PO BEDTIME Metoprolol Succinate [Toprol XL] Med 09/06/20 09:00 Active 50 mg PO QAM Mirtazapine [Remeron] Med 09/05/20 21:00 Active 15 mg PO BEDTIME Patient's Own Medication [Ptom] Med 09/05/20 22:00 Active 0 each PO DAILY@1000,2200 Patient's Own Medication [Ptom] Med 09/05/20 21:00 Active 1 each PO BEDTIME Patient's Own Medication [Ptom] Med 09/05/20 21:00 Active 1 each PO BEDTIME Patient's Own Medication [Ptom] Med 09/06/20 09:00 Active 1 each PO QAM Sodium Chloride 0.9% [Normal Saline] 1,000 ml Med 09/05/20 22:45 Active IV ASDIRECTED Sodium Hypochlorite [Dakin's] Med 09/06/20 09:00 Pending 1 applic TOP DAILY calcitrioL [Rocaltrol] Med 09/06/20 21:09 Active 0.25 mcg PO MOWEFR predniSONE Med 09/06/20 09:00 Active 5 mg PO QAM Blood Culture x2 Reflex Set [OM.PC] Stat Oth 09/05/20 17:59 Ordered Code Status [Resuscitation Status] Routine Resus Stat 09/05/20 20:50 Ordered Medication Orders Acetaminophen (Acetaminophen 650 Mg Tab.Er) 650 mg PO Q8H PRN PRN Reason: Pain Last Admin: 09/06/20 02:47 Dose: 650 mg Documented by: MARI Calcitriol (Calcitriol 0.25 Mcg Cap) 0.25 mcg PO MOWEFR SHILO Cholecalciferol (Cholecalciferol (Vitamin D3) 25 Mcg Tab) 50 mcg PO DAILY SHILO Clopidogrel Bisulfate (Clopidogrel 75 Mg Tab) 75 mg PO QAM SHILO Cyanocobalamin (Cyanocobalamin (Vitamin B12) 500 Mcg Tab) 500 mcg PO DAILY SHILO Dextrose/Water (50% Dextrose In Water 50 Ml Syringe) 50 ml IV ASDIRECTED PRN PRN Reason: Hypoglycemia Donepezil HCl (Donepezil 10 Mg Tab) 10 mg PO BEDTIME [facility] Last Admin: 09/05/20 21:28 Dose: 10 mg Documented by: MARI Famotidine (Famotidine 20 Mg Tab) 20 mg PO BEDTIME [facility] Last Admin: 09/05/20 21:29 Dose: 20 mg Documented by: MARI Glucagon (Glucagon,Human Recombinant 1 Mg Vial) 1 mg IM ASDIRECTED PRN PRN Reason: Hypoglycemia Sodium Chloride (Normal Saline) 1,000 mls @ 50 mls/hr IV ASDIRECTED [facility] Last Admin: 09/05/20 22:49 Dose: 50 mls/hr Documented by: MARI Insulin Aspart (Insulin Aspart 100 Units/Ml 3 Ml Pen) 0 unit SUBCUT WITHMEALSAN DBED [facility]; Protocol Last Admin: 09/05/20 21:20 Dose: Not Given Documented by: MARI Insulin Glargine (Insulin Glargine,Human Rec. Analog 100 Units/Ml 3 Ml Pen) 8 units SUBCUT BID [facility] Magnesium Oxide (Magnesium Oxide 500 Mg Tab) 500 mg PO BEDTIME [facility] Last Admin: 09/05/20 21:28 Dose: 500 mg Documented by: MARI Metoprolol Succinate (Metoprolol Succinate 50 Mg Tab.Er) 50 mg PO QAM [facility] Mirtazapine (Mirtazapine 15 Mg Tab) 15 mg PO BEDTIME [facility] Last Admin: 09/05/20 21:28 Dose: 15 mg Documented by: MARI Non-Formulary Medication (Sodium Hypochlorite [Dakin's]) 1 applic TOP DAILY [facility] Ptom- Mycophenolate (500mg Tablet) 0 each PO DAILY@1000,2200 [facility] Last Admin: 09/05/20 21:29 Dose: 1,000 each Documented by: MARI Ptom- Pravastatin (20mg Tablet) 1 each PO BEDTIME [facility] Last Admin: 09/05/20 21:29 Dose: 1 each Documented by: MARI Ptom- Tacrolimus 0. (5mg Capsule) 1 each PO BEDTIME [facility] Last Admin: 09/05/20 21:29 Dose: 1 each Documented by: MARI Ptom- Tacrolimus 1mg (Capsule) 1 each PO QAM [facility] Prednisone (Prednisone 5 Mg Tab) 5 mg PO QAM [facility] Assessment/Plan Comment:: History of Present Illness: Mr Nagel is a 80 y/o gentleman who admitted into INPT status from ED due to sepsis. Patient presented with fever, hypotension, increased confusion and chronic right heel ulcer. He had been on Doxycycline po x2 weeks until one month ago. Since then he has had medical worms/maggots debriding the wound and has had HH and Family (daughter pharmacist other daughter nurse practitioner) assisting with wound cares 3x/week. Last week family they noticed some increased confusion and suspected a UTI. UA was clear but he was dehydrated. No fever until today. ED course Vital signs; temp 99.9, heart rate 105, BP 103/59, pox 95%, RR 18 CXR; atelectasis bibasilar, mild Lactic acid, 2.4, no repeat, CRP 5.9 Hgb 9.7% Creatinine 0.94 Blood cultures obtained, Pertinent wound history 08/23/2020; Medi-honey gel and ABD to wound, left in place x2 days, offload heel entirely, float heel when in bed and or recliner. Toe touch weight bearing to the right foot. DARCO shoe advised if must ambulate 08/25/2020; first larval dose applied, 08/28/2020 larval therapy removed and SECOND larval dose applied, Recommended wound vac once wound base is better optimized. Consider biologics once wound base is better optimized (Grafix vs oasis?), Prior Auth for negative wound pressure placed. 08/30/2020; Larval therapy removed and THIRD larval dose applied, 09/01/2020; Larval therapy removed and FOURTH larval dose applied, Was to f/u with Dr Call on 09/07 to evaluate need for biologics and negative pressure therapy and to discuss potential need for calcenectomy 09/04/2020; started dakins 0.125% WTD to the heel. HH to assist with dressing change on 09/0509/06/2020 Was to see vascular team, podiatry, and wound care to discuss plan of care Hospital course 09/06/2020; upon admission he was started on vancomycin, blood pressure improved, no longer tachycardic, afebrile, Primary hospital problems --Sepsis; suspect on arrival as slightly tachypneic, hypotension with initial lactate before hydration slightly elevated, slight neutphilia --Right medial heel ulceration; Full thick-ness ulceration, was receiving worm therapy, MRSA + 2months ago, Vancomycin, Bactim PO --Immunosuppressed Host Chronic/stable problems --HFpEF Grade I diastolic dysfunction --CAD involving coronary bypass graft --PAD, contributable delayed wound healing, s/p lower extremity peripheral angiogram with angioplasty to right superficial femoral, tibioperoneal, peroneal, and anterior tibial arteries on 08/01/2020. Plavix --HLD, Statin --T2DM, diabetic neuropathy, recent A1C 6.2% hold insulin while n.p.o. Accu- Cheks --Hx-TIA --Hx Renal transplant, cadaveric, follows with nephrology, On immunosuppressant therapy-Tacrolimus, prednisone --Hx of Skin cancer which was squamous cell carcinoma to multiple areas of the skin. 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 until after surgical debridement, ADA heart healthy postoperatively if tolerates --Incentive spirometer --Holding Unnecessary medications until after surgery --Repeat lactic acid level to assess response to treatment/vancomycin, CBC, CMP, trend CRP --UA/Urine cx
[2020-09-06] MEDS: Clopidogrel 75 MG Tab PO SCH (09:34)
[2020-09-06] MEDS: Metoprolol Succinate 50 MG Tab.ER PO SCH (09:35)
[2020-09-06] MEDS: Insulin Aspart 100 Units/ML 3 ML Pen SUBCUT SCH ×4 (09:37→21:10)
[2020-09-06] MEDS: Insulin Glargine,Human Rec. Analog 100 Units/ML 3 ML Pen SUBCUT SCH ×2 (09:38→20:30)
[2020-09-06] MEDS ORDERED: Propofol 200 MG/20 ML SDV ONE (11:52)
[2020-09-06] MEDS ORDERED: fentaNYL 100 MCG/2 ML SDV ONE (11:52)
[2020-09-06] MEDS ORDERED: Lidocaine 1% 10 ML MDV INFILT ONE (12:05)
[2020-09-06] MEDS ORDERED: Lidocaine 1% 20 ML MDV ONE (12:06)
[2020-09-06 12:10] LABS: ANION GAP 12.8 mmol/L (5-15); CHLORIDE,CL 108 mmol/L (98-107); SODIUM,NA 140 mmol/L (136-145)
--- NOTE | 2020-09-06 13:16 | PCM.OPNOTE ---
- General Post-Op/Procedure Note Date of Surgery/Procedure: 09/06/20 Operative Procedure(s): Debridement of right heel ulcer, sharp and bone biopsy to rule out osteomyelitis. Ulcer size was 5 cm x 5 cm x 1 cm. Anesthesia Technique: MAC, Moderate Sedation Primary Surgeon: Ray Fajardo Complications: None Condition: Good Free Text/Narrative:: Intake & Output 09/05/20 09/06/20 09/06/20 22:59 06:59 14:59 Intake Total 2089 345 Output Total 400 Balance 2089 Preoperative diagnosis: Necrotic ulcer of the right heel, diabetes mellitus, vascular insufficiency right lower extremity. Possible osteomyelitis. Postoperative diagnosis: As above. Procedure performed: Debridement of right heel ulcer 5 cm x 5 cm x 2 cm. Calcaneus is exposed. Clinical osteomyelitis. Bone biopsy. Informed consent was obtained from the patient and his family. They wish for me to proceed. All possible complications were thoroughly discussed. The patient was kept in the supine position. Satisfactory MAC was administered. Xylocaine 1% was also used. Debridement, sharp of the skin and subcutaneous tissue were performed. Bone biopsy was performed using a Jamshidi needle. Wet-to-dry d ressings were placed the leg was dressed. The patient tolerated the procedure well. We attempted to place a PICC line in the right upper extremity but this was not successful today. We will reattempt in a.m.
[2020-09-06] MEDS: MYCOPHENOLATE 500 MG PO SCH ×2 (13:48→22:08)
[2020-09-06] MEDS: TACROLIMUS 1 MG PO SCH (13:49)
[2020-09-06] MEDS: Cholecalciferol (Vitamin D3) 25 MCG Tab PO SCH (13:50)
[2020-09-06] MEDS: predniSONE 5 MG Tab PO SCH (13:50)
[2020-09-06] MEDS: Cyanocobalamin (Vitamin B12) 500 MCG Tab PO SCH (13:50)
[2020-09-06] MEDS: Erythromycin Base 0.5% Ophth Oint 3.5 GM Tube EYERT SCH ×2 (14:56→20:30)
[2020-09-06] MEDS: Sodium Chloride 0.9% 1,000 ML IV SCH (17:43)
[2020-09-06] MEDS: Donepezil 10 MG Tab PO SCH (20:28)
[2020-09-06] MEDS: Docusate Sodium 100 MG Cap PO SCH (20:28)
[2020-09-06] MEDS: Magnesium Oxide 500 MG Tab PO SCH (20:28)
[2020-09-06] MEDS: Mirtazapine 15 MG Tab PO SCH (20:28)
[2020-09-06] MEDS: Famotidine 20 MG Tab PO SCH (20:28)
[2020-09-06] MEDS: TACROLIMUS 0.5 MG PO SCH (20:29)
[2020-09-06] MEDS: PRAVASTATIN 20 MG PO SCH (20:30)
[2020-09-06] MEDS ORDERED: Calcitriol 0.25 MCG Cap PO SCH (21:09)
[2020-09-06] MEDS: SODIUM HYPOCHLORITE 0.125% TOP SCH (21:12)
[2020-09-07] MEDS: Insulin Aspart 100 Units/ML 3 ML Pen SUBCUT SCH ×4 (08:03→21:39)
[2020-09-07] MEDS: Insulin Glargine,Human Rec. Analog 100 Units/ML 3 ML Pen SUBCUT SCH ×2 (08:06→21:39)
[2020-09-07] MEDS: Erythromycin Base 0.5% Ophth Oint 3.5 GM Tube EYERT SCH ×4 (08:09→21:50)
[2020-09-07] MEDS: predniSONE 5 MG Tab PO SCH (08:09)
[2020-09-07] MEDS: Clopidogrel 75 MG Tab PO SCH (08:09)
[2020-09-07] MEDS: Multivitamins with Minerals/Iron/Folic Acid/Lycopene Tab PO SCH (08:09)
[2020-09-07] MEDS: Cyanocobalamin (Vitamin B12) 500 MCG Tab PO SCH (08:10)
[2020-09-07] MEDS: Cholecalciferol (Vitamin D3) 25 MCG Tab PO SCH (08:10)
[2020-09-07] MEDS: Zinc (Zinc Gluconate) 50 MG Tab PO SCH (08:10)
[2020-09-07] MEDS: Metoprolol Succinate 50 MG Tab.ER PO SCH (08:14)
--- NOTE | 2020-09-07 08:19 | OR ---
DATE OF SURGERY: 09/05/2020 SURGEON: Ray Fajardo MD ADDENDUM: The calcaneus was exposed and easily palpable. /[id number]/MODL
[2020-09-07] MEDS: TACROLIMUS 1 MG PO SCH (08:20)
[2020-09-07] MEDS: MYCOPHENOLATE 500 MG PO SCH ×2 (10:07→21:33)
[2020-09-07] MEDS: SODIUM HYPOCHLORITE 0.125% TOP SCH ×3 (10:10→22:13)
--- NOTE | 2020-09-07 11:07 | PCM.PN ---
- General Info Date of Service: 09/07/20 Functional Status: Reports: Pain Controlled, Tolerating Diet, Urinating. Denies: Ambulating, New Symptoms - Review of Systems General: Reports: Weakness HEENT: Reports: No Symptoms Pulmonary: Reports: No Symptoms, Shortness of Breath, Pleuritic Chest Pain, Cough, Sputum Cardiovascular: Reports: Chest Pain. Denies: Palpitations, Edema Gastrointestinal: Reports: No Symptoms Genitourinary: Reports: No Symptoms Musculoskeletal: Denies: Shoulder Pain, Arm Pain, Joint Pain Skin: Reports: Pallor, Dryness, Bruising Neurological: Reports: Pre-Existing Deficit, Difficulty Walking, Gait Disturbance. Denies: Confusion, Numbness, Paresthesia, Tremors Psychiatric: Denies: Confusion, Depression - Patient Data Vitals - Most Recent: Last Vital Signs Temp 98.1 F 09/07/20 06:10 Pulse 85 09/07/20 08:14 Resp 18 09/07/20 06:10 BP 184/78 H 09/07/20 08:14 Pulse Ox 95 09/07/20 06:10 Weight - Most Recent: 150 lb 9.6 oz I&O - Last 24 Hours: Intake & Output 09/06/20 09/07/20 09/07/20 22:59 06:59 14:59 Intake Total 1171 571 Output Total 450 250 Balance 721 321 Lab Results Last 24 Hours: Laboratory Results - last 24 hr 09/06/20 09/06/20 09/06/20 Range/Units 11:30 11:30 11:30 WBC 9.52 (5.00-10.00) 10^3/uL RBC 2.54 L (4.50-6.00) 10^6/uL Hgb 8.2 L D (13.0-17.0) g/dL Hct 27.3 L (40.0-52.0) % MCV 107.5 H (82.0-92.0) fL MCH 32.3 H (27.0-31.0) pg MCHC 30.0 L (32.0-36.0) g/dL RDW 15.7 H (11.5-14.5) % Plt Count 212 (150-400) 10^3/uL MPV 9.4 (7.4-10.4) fL Immature Gran % (Auto) 0.1 (0.0-5.0) % Neut % (Auto) 55.9 (50.0-70.0) % Lymph % (Auto) 35.4 (20.0-40.0) % [place] % (Auto) 8.0 (2.0-8.0) % Eos % (Auto) 0.5 L (1.0-3.0) % Baso % (Auto) 0.1 (0.0-1.0) % Neut # (Auto) 5.32 (2.50-7.00) 10^3/uL Lymph # (Auto) 3.37 (1.00-4.00) 10^3/uL [place] # (Auto) 0.76 (0.10-0.80) 10^3/uL Eos # (Auto) 0.05 L (0.10-0.30) 10^3/uL Baso # (Auto) 0.01 (0.00-0.10) 10^3/uL Immature Gran # (Auto) 0.01 (0.00-0.50) 10^3/uL Sodium 140 (136-145) mmol/L Potassium 4.9 (3.5-5.1) mmol/L Chloride 108 H (98-107) mmol/L Carbon Dioxide 24.1 (21.0-32.0) mmol/L Anion Gap 12.8 (5-15) mmol/L BUN 23 H (7-18) mg/dL Creatinine 0.82 (0.51-1.17) mg/dL Est Cr Clr Drug Dosing 68.26 mL/min Estimated GFR (MDRD) > 60 mL/min Glucose 227 H (70-140) mg/dL POC Glucose (74-106) mg/dl Lactic Acid 1.0 (0.4-2.0) mmol/L Calcium 8.2 L (8.7-10.3) mg/dL Total Bilirubin 0.5 (0.2-1.0) mg/dL AST 16 (15-37) U/L ALT 11 L (14-63) U/L Alkaline Phosphatase 56 (46-116) U/L C-Reactive Protein (0.0-0.9) mg/dL Total Protein 5.0 L (6.4-8.2) g/dL Albumin 2.14 L (3.40-5.00) g/dL Specimen Type Urine Color Urine Appearance Urine pH Ur Specific [place] Urine Protein Urine Glucose (UA) Urine Ketones Urine Occult Blood Urine Nitrite Urine Bilirubin Urine Urobilinogen Ur Leukocyte Esterase U Hyaline Cast (Auto) Urine RBC Urine WBC Ur Epithelial Cells Other Crystals Amorphous Sediment Urine Bacteria Granular Casts (Auto) Urine Mucus Urine Other Urine Trichomonas Urine Yeast Urinalysis Comment 09/06/20 09/06/20 09/07/20 Range/Units 16:00 21:08 07:20 WBC 7.50 (5.00-10.00) 10^3/uL RBC 2.56 L (4.50-6.00) 10^6/uL Hgb 8.2 L (13.0-17.0) g/dL Hct 27.6 L (40.0-52.0) % MCV 107.8 H (82.0-92.0) fL MCH 32.0 H (27.0-31.0) pg MCHC 29.7 L (32.0-36.0) g/dL RDW 15.4 H (11.5-14.5) % Plt Count 246 (150-400) 10^3/uL MPV 9.5 (7.4-10.4) fL Immature Gran % (Auto) 0.1 (0.0-5.0) % Neut % (Auto) 56.2 (50.0-70.0) % Lymph % (Auto) 33.3 (20.0-40.0) % [place] % (Auto) 9.2 H (2.0-8.0) % Eos % (Auto) 1.1 (1.0-3.0) % Baso % (Auto) 0.1 (0.0-1.0) % Neut # (Auto) 4.21 (2.50-7.00) 10^3/uL Lymph # (Auto) 2.50 (1.00-4.00) 10^3/uL [place] # (Auto) 0.69 (0.10-0.80) 10^3/uL Eos # (Auto) 0.08 L (0.10-0.30) 10^3/uL Baso # (Auto) 0.01 (0.00-0.10) 10^3/uL Immature Gran # (Auto) 0.01 (0.00-0.50) 10^3/uL Sodium (136-145) mmol/L Potassium (3.5-5.1) mmol/L Chloride (98-107) mmol/L Carbon Dioxide (21.0-32.0) mmol/L Anion Gap (5-15) mmol/L BUN (7-18) mg/dL Creatinine (0.51-1.17) mg/dL Est Cr Clr Drug Dosing mL/min Estimated GFR (MDRD) mL/min Glucose (70-140) mg/dL POC Glucose 331 H (74-106) mg/dl Lactic Acid (0.4-2.0) mmol/L Calcium (8.7-10.3) mg/dL Total Bilirubin (0.2-1.0) mg/dL AST (15-37) U/L ALT (14-63) U/L Alkaline Phosphatase (46-116) U/L C-Reactive Protein (0.0-0.9) mg/dL Total Protein (6.4-8.2) g/dL Albumin (3.40-5.00) g/dL Specimen Type Cancelled Urine Color Cancelled Urine Appearance Cancelled Urine pH Cancelled Ur Specific [place] Cancelled Urine Protein Cancelled Urine Glucose (UA) Cancelled Urine Ketones Cancelled Urine Occult Blood Cancelled Urine Nitrite Cancelled Urine Bilirubin Cancelled Urine Urobilinogen Cancelled Ur Leukocyte Esterase Cancelled U Hyaline Cast (Auto) Cancelled Urine RBC Cancelled Urine WBC Cancelled Ur Epithelial Cells Cancelled Other Crystals Cancelled Amorphous Sediment Cancelled Urine Bacteria Cancelled Granular Casts (Auto) Cancelled Urine Mucus Cancelled Urine Other Cancelled Urine Trichomonas Cancelled Urine Yeast Cancelled Urinalysis Comment Cancelled 09/07/20 Range/Units 07:20 WBC (5.00-10.00) 10^3/uL RBC (4.50-6.00) 10^6/uL Hgb (13.0-17.0) g/dL Hct (40.0-52.0) % MCV (82.0-92.0) fL MCH (27.0-31.0) pg MCHC (32.0-36.0) g/dL RDW (11.5-14.5) % Plt Count (150-400) 10^3/uL MPV (7.4-10.4) fL Immature Gran % (Auto) (0.0-5.0) % Neut % (Auto) (50.0-70.0) % Lymph % (Auto) (20.0-40.0) % [place] % (Auto) (2.0-8.0) % Eos % (Auto) (1.0-3.0) % Baso % (Auto) (0.0-1.0) % Neut # (Auto) (2.50-7.00) 10^3/uL Lymph # (Auto) (1.00-4.00) 10^3/uL [place] # (Auto) (0.10-0.80) 10^3/uL Eos # (Auto) (0.10-0.30) 10^3/uL Baso # (Auto) (0.00-0.10) 10^3/uL Immature Gran # (Auto) (0.00-0.50) 10^3/uL Sodium (136-145) mmol/L Potassium (3.5-5.1) mmol/L Chloride (98-107) mmol/L Carbon Dioxide (21.0-32.0) mmol/L Anion Gap (5-15) mmol/L BUN (7-18) mg/dL Creatinine (0.51-1.17) mg/dL Est Cr Clr Drug Dosing mL/min Estimated GFR (MDRD) mL/min Glucose (70-140) mg/dL POC Glucose (74-106) mg/dl Lactic Acid (0.4-2.0) mmol/L Calcium (8.7-10.3) mg/dL Total Bilirubin (0.2-1.0) mg/dL AST (15-37) U/L ALT (14-63) U/L Alkaline Phosphatase (46-116) U/L C-Reactive Protein 7.6 H (0.0-0.9) mg/dL Total Protein (6.4-8.2) g/dL Albumin (3.40-5.00) g/dL Specimen Type Urine Color Urine Appearance Urine pH Ur Specific [place] Urine Protein Urine Glucose (UA) Urine Ketones Urine Occult Blood Urine Nitrite Urine Bilirubin Urine Urobilinogen Ur Leukocyte Esterase U Hyaline Cast (Auto) Urine RBC Urine WBC Ur Epithelial Cells Other Crystals Amorphous Sediment Urine Bacteria Granular Casts (Auto) Urine Mucus Urine Other Urine Trichomonas Urine Yeast Urinalysis Comment Rafi Results Last 24 Hours: Microbiology 09/05/20 17:55 Aerobic Blood Culture - Preliminary Blood - Venous NO GROWTH AFTER 1 DAY Anaerobic Blood Culture - Preliminary NO GROWTH AFTER 1 DAY 09/05/20 18:00 Aerobic Blood Culture - Preliminary Blood - Venous - Lab Draw NO GROWTH AFTER 1 DAY Anaerobic Blood Culture - Preliminary NO GROWTH AFTER 1 DAY Med Orders - Current: Current Medications Acetaminophen (Acetaminophen 650 Mg Tab.Er) 650 mg PO Q8H PRN PRN Reason: Pain Last Admin: 09/06/20 02:47 Dose: 650 mg Documented by: Calcitriol (Calcitriol 0.25 Mcg Cap) 0.25 mcg PO MOWEFR [facility] Last Admin: 09/06/20 20:28 Dose: 0.25 mcg Documented by: Cholecalciferol (Cholecalciferol (Vitamin D3) 25 Mcg Tab) 50 mcg PO DAILY [facility] Last Admin: 09/07/20 08:10 Dose: 50 mcg Documented by: Clopidogrel Bisulfate (Clopidogrel 75 Mg Tab) 75 mg PO QAM [facility] Last Admin: 09/07/20 08:09 Dose: 75 mg Documented by: Cyanocobalamin (Cyanocobalamin (Vitamin B12) 500 Mcg Tab) 500 mcg PO DAILY [facility] Last Admin: 09/07/20 08:10 Dose: 500 mcg Documented by: Dextrose/Water (50% Dextrose In Water 50 Ml Syringe) 50 ml IV ASDIRECTED PRN PRN Reason: Hypoglycemia Docusate Sodium (Docusate Sodium 100 Mg Cap) 100 mg PO BEDTIME [facility] Last Admin: 09/06/20 20:28 Dose: 100 mg Documented by: Donepezil HCl (Donepezil 10 Mg Tab) 10 mg PO BEDTIME [facility] Last Admin: 09/06/20 20:28 Dose: 10 mg Documented by: Erythromycin (Erythromycin Base 0.5% Ophth Oint 3.5 Gm Tube) 0 gm EYERT TID [facility] Last Admin: 09/06/20 20:30 Dose: 1 applic Documented by: Famotidine (Famotidine 20 Mg Tab) 20 mg PO BEDTIME [facility] Last Admin: 09/06/20 20:28 Dose: 20 mg Documented by: Glucagon (Glucagon,Human Recombinant 1 Mg Vial) 1 mg IM ASDIRECTED PRN PRN Reason: Hypoglycemia Sodium Chloride (Normal Saline) 1,000 mls @ 50 mls/hr IV ASDIRECTED [facility] Last Admin: 09/06/20 17:43 Dose: 50 mls/hr Documented by: Vancomycin HCl 1 gm/ Sodium (Chloride) 250 mls @ 150 mls/hr IV 1000,2200 [facility] Last Admin: 09/07/20 10:07 Dose: 150 mls/hr Documented by: Insulin Aspart (Insulin Aspart 100 Units/Ml 3 Ml Pen) 0 unit SUBCUT WITHMEALSANDBED [facility]; Protocol Last Admin: 09/07/20 08:03 Dose: 2 units Documented by: Insulin Glargine (Insulin Glargine,Human Rec. Analog 100 Units/Ml 3 Ml Pen) 8 units SUBCUT BID [facility] Last Admin: 09/07/20 08:06 Dose: 8 units Documented by: Magnesium Oxide (Magnesium Oxide 500 Mg Tab) 500 mg PO BEDTIME [facility] Last Admin: 09/06/20 20:28 Dose: 500 mg Documented by: Metoprolol Succinate (Metoprolol Succinate 50 Mg Tab.Er) 50 mg PO QAM [facility] Last Admin: 09/07/20 08:14 Dose: 50 mg Documented by: Mirtazapine (Mirtazapine 15 Mg Tab) 15 mg PO BEDTIME [facility] Last Admin: 09/06/20 20:28 Dose: 15 mg Documented by: Multivitamins/Minerals (Multivitamins With Minerals/Iron/Folic Acid/Lycopene Tab) 1 tab PO DAILY [facility] Last Admin: 09/07/20 08:09 Dose: 1 tab Documented by: Ptom- Mycophenolate (500mg Tablet) 0 each PO DAILY@1000,2200 [facility] Last Admin: 09/07/20 10:07 Dose: 1 each Documented by: Ptom- Pravastatin (20mg Tablet) 1 each PO BEDTIME [facility] Last Admin: 09/06/20 20:30 Dose: 1 each Documented by: Ptom- Tacrolimus 0. (5mg Capsule) 1 each PO BEDTIME [facility] Last Admin: 09/06/20 20:29 Dose: 1 each Documented by: Ptom- Tacrolimus 1mg (Capsule) 1 each PO QAM [facility] Last Admin: 09/07/20 08:20 Dose: 1 each Documented by: Prednisone (Prednisone 5 Mg Tab) 5 mg PO QAM [facility] Last Admin: 09/07/20 08:09 Dose: 5 mg Documented by: Sodium Hypochlorite (Sodium Hypochlorite 0.125% Top Soln 473 Ml Bot) 0 ml TOP TID [facility] Last Admin: 09/07/20 10:10 Dose: 1 applic Documented by: Vancomycin HCl (Pharmacy To Dose - Vancomycin) 1 dose .XX ASDIRECTED [facility] Zinc Gluconate (Zinc (Zinc Gluconate) 50 Mg Tab) 50 mg PO DAILY [facility] Last Admin: 09/07/20 08:10 Dose: 50 mg Documented by: Discontinued Medications Fentanyl (Fentanyl 100 Mcg/2 Ml Sdv) Confirm Administered Dose 100 mcg .ROUTE .STK-MED ONE Stop: 09/06/20 11:53 Last Admin: 09/06/20 18:03 Dose: Not Given Documented by: Sodium Chloride (Normal Saline) Confirm Administered Dose 1,000 mls @ as directed .ROUTE .STK-MED ONE Stop: 09/05/20 17:38 Last Admin: 09/05/20 18:18 Dose: Not Given Documented by: Sodium Chloride (Normal Saline) 1,000 mls @ 999 mls/hr IV .BOLUS ONE Stop: 09/05/20 19:01 Last Admin: 09/05/20 17:40 Dose: 999 mls/hr Documented by: Sodium Chloride (Normal Saline) Confirm Administered Dose 1,000 mls @ as directed .ROUTE .STK-MED ONE Stop: 09/05/20 18:04 Last Admin: 09/05/20 18:19 Dose: Not Given Documented by: Sodium Chloride (Normal Saline) 1,000 mls @ 999 mls/hr IV .BOLUS ONE Stop: 09/05/20 19:10 Last Admin: 09/05/20 18:10 Dose: 999 mls/hr Documented by: Sodium Chloride (Normal Saline) 1,000 mls @ 250 mls/hr IV ONETIME ONE Stop: 09/05/20 22:25 Last Admin: 09/05/20 18:25 Dose: 250 mls/hr Documented by: Vancomycin HCl 1 gm/ Sodium (Chloride) 250 mls @ 167 mls/hr IV ONETIME ONE Stop: 09/05/20 20:11 Last Admin: 09/05/20 19:03 Dose: 167 mls/hr Documented by: Lidocaine HCl (Lidocaine 1% 20 Ml Mdv) Confirm Administered Dose 20 ml .ROUTE .STK-MED ONE Stop: 09/06/20 12:07 Last Admin: 09/06/20 18:03 Dose: Not Given Documented by: Lidocaine HCl (Lidocaine 1% 10 Ml Mdv) 3 ml INFILT .STK-MED ONE Stop: 09/06/20 12:06 Last Admin: 09/06/20 12:05 Dose: 3 ml Documented by: Propofol (Propofol 200 Mg/20 Ml Sdv) Confirm Administered Dose 200 mg .ROUTE .STK-MED ONE Stop: 09/06/20 11:53 Last Admin: 09/06/20 18:03 Dose: Not Given Documented by: Trimethoprim/Sulfamethoxazole (Sulfamethoxazole/Trimethoprim 800-160 Mg Tab) 1 tab PO ONETIME ONE Stop: 09/05/20 18:43 Last Admin: 09/05/20 19:05 Dose: 1 tab Documented by: - Exam Quality Assessment: No: Supplemental Oxygen General: Alert, Oriented, Cooperative, No Acute Distress HEENT: Mucous Membr. Moist/[place], Other (OD, slight watery erythematous). No: Scleral Icterus Neck: No JVD. No: Thyromegaly Lungs: Clear to Auscultation, Normal Respiratory Effort Cardiovascular: Regular Rate, Regular Rhythm GI/Abdominal Exam: Normal Bowel Sounds, Soft (Male) Exam: Deferred Back Exam: No: CVA Tenderness (L), CVA Tenderness (R) Extremities: No Pedal Edema Wound/Incisions: Dressing Dry and Intact, Other (ight heel ulcer 5 cm x 5 cm x 2 cm with exposed calcaneus ) Neurological: Normal Speech, Normal Tone, Sensation Intact. No: Normal Gait Psy/Mental Status: Alert, Labile Mood - Patient Data Lab Results Last 24 hrs: Laboratory Results - last 24 hr 09/06/20 09/06/20 09/06/20 Range/Units 11:30 11:30 11:30 WBC 9.52 (5.00-10.00) 10^3/uL RBC 2.54 L (4.50-6.00) 10^6/uL Hgb 8.2 L D (13.0-17.0) g/dL Hct 27.3 L (40.0-52.0) % MCV 107.5 H (82.0-92.0) fL MCH 32.3 H (27.0-31.0) pg MCHC 30.0 L (32.0-36.0) g/dL RDW 15.7 H (11.5-14.5) % Plt Count 212 (150-400) 10^3/uL MPV 9.4 (7.4-10.4) fL Immature Gran % (Auto) 0.1 (0.0-5.0) % Neut % (Auto) 55.9 (50.0-70.0) % Lymph % (Auto) 35.4 (20.0-40.0) % [place] % (Auto) 8.0 (2.0-8.0) % Eos % (Auto) 0.5 L (1.0-3.0) % Baso % (Auto) 0.1 (0.0-1.0) % Neut # (Auto) 5.32 (2.50-7.00) 10^3/uL Lymph # (Auto) 3.37 (1.00-4.00) 10^3/uL [place] # (Auto) 0.76 (0.10-0.80) 10^3/uL Eos # (Auto) 0.05 L (0.10-0.30) 10^3/uL Baso # (Auto) 0.01 (0.00-0.10) 10^3/uL Immature Gran # (Auto) 0.01 (0.00-0.50) 10^3/uL Sodium 140 (136-145) mmol/L Potassium 4.9 (3.5-5.1) mmol/L Chloride 108 H (98-107) mmol/L Carbon Dioxide 24.1 (21.0-32.0) mmol/L Anion Gap 12.8 (5-15) mmol/L BUN 23 H (7-18) mg/dL Creatinine 0.82 (0.51-1.17) mg/dL Est Cr Clr Drug Dosing 68.26 mL/min Estimated GFR (MDRD) > 60 mL/min Glucose 227 H (70-140) mg/dL POC Glucose (74-106) mg/dl Lactic Acid 1.0 (0.4-2.0) mmol/L Calcium 8.2 L (8.7-10.3) mg/dL Total Bilirubin 0.5 (0.2-1.0) mg/dL AST 16 (15-37) U/L ALT 11 L (14-63) U/L Alkaline Phosphatase 56 (46-116) U/L C-Reactive Protein (0.0-0.9) mg/dL Total Protein 5.0 L (6.4-8.2) g/dL Albumin 2.14 L (3.40-5.00) g/dL Specimen Type Urine Color Urine Appearance Urine pH Ur Specific [place] Urine Protein Urine Glucose (UA) Urine Ketones Urine Occult Blood Urine Nitrite Urine Bilirubin Urine Urobilinogen Ur Leukocyte Esterase U Hyaline Cast (Auto) Urine RBC Urine WBC Ur Epithelial Cells Other Crystals Amorphous Sediment Urine Bacteria Granular Casts (Auto) Urine Mucus Urine Other Urine Trichomonas Urine Yeast Urinalysis Comment 09/06/20 09/06/20 09/07/20 Range/Units 16:00 21:08 07:20 WBC 7.50 (5.00-10.00) 10^3/uL RBC 2.56 L (4.50-6.00) 10^6/uL Hgb 8.2 L (13.0-17.0) g/dL Hct 27.6 L (40.0-52.0) % MCV 107.8 H (82.0-92.0) fL MCH 32.0 H (27.0-31.0) pg MCHC 29.7 L (32.0-36.0) g/dL RDW 15.4 H (11.5-14.5) % Plt Count 246 (150-400) 10^3/uL MPV 9.5 (7.4-10.4) fL Immature Gran % (Auto) 0.1 (0.0-5.0) % Neut % (Auto) 56.2 (50.0-70.0) % Lymph % (Auto) 33.3 (20.0-40.0) % [place] % (Auto) 9.2 H (2.0-8.0) % Eos % (Auto) 1.1 (1.0-3.0) % Baso % (Auto) 0.1 (0.0-1.0) % Neut # (Auto) 4.21 (2.50-7.00) 10^3/uL Lymph # (Auto) 2.50 (1.00-4.00) 10^3/uL [place] # (Auto) 0.69 (0.10-0.80) 10^3/uL Eos # (Auto) 0.08 L (0.10-0.30) 10^3/uL Baso # (Auto) 0.01 (0.00-0.10) 10^3/uL Immature Gran # (Auto) 0.01 (0.00-0.50) 10^3/uL Sodium (136-145) mmol/L Potassium (3.5-5.1) mmol/L Chloride (98-107) mmol/L Carbon Dioxide (21.0-32.0) mmol/L Anion Gap (5-15) mmol/L BUN (7-18) mg/dL Creatinine (0.51-1.17) mg/dL Est Cr Clr Drug Dosing mL/min Estimated GFR (MDRD) mL/min Glucose (70-140) mg/dL POC Glucose 331 H (74-106) mg/dl Lactic Acid (0.4-2.0) mmol/L Calcium (8.7-10.3) mg/dL Total Bilirubin (0.2-1.0) mg/dL AST (15-37) U/L ALT (14-63) U/L Alkaline Phosphatase (46-116) U/L C-Reactive Protein (0.0-0.9) mg/dL Total Protein (6.4-8.2) g/dL Albumin (3.40-5.00) g/dL Specimen Type Cancelled Urine Color Cancelled Urine Appearance Cancelled Urine pH Cancelled Ur Specific [place] Cancelled Urine Protein Cancelled Urine Glucose (UA) Cancelled Urine Ketones Cancelled Urine Occult Blood Cancelled Urine Nitrite Cancelled Urine Bilirubin Cancelled Urine Urobilinogen Cancelled Ur Leukocyte Esterase Cancelled U Hyaline Cast (Auto) Cancelled Urine RBC Cancelled Urine WBC Cancelled Ur Epithelial Cells Cancelled Other Crystals Cancelled Amorphous Sediment Cancelled Urine Bacteria Cancelled Granular Casts (Auto) Cancelled Urine Mucus Cancelled Urine Other Cancelled Urine Trichomonas Cancelled Urine Yeast Cancelled Urinalysis Comment Cancelled 09/07/20 Range/Units 07:20 WBC (5.00-10.00) 10^3/uL RBC (4.50-6.00) 10^6/uL Hgb (13.0-17.0) g/dL Hct (40.0-52.0) % MCV (82.0-92.0) fL MCH (27.0-31.0) pg MCHC (32.0-36.0) g/dL RDW (11.5-14.5) % Plt Count (150-400) 10^3/uL MPV (7.4-10.4) fL Immature Gran % (Auto) (0.0-5.0) % Neut % (Auto) (50.0-70.0) % Lymph % (Auto) (20.0-40.0) % [place] % (Auto) (2.0-8.0) % Eos % (Auto) (1.0-3.0) % Baso % (Auto) (0.0-1.0) % Neut # (Auto) (2.50-7.00) 10^3/uL Lymph # (Auto) (1.00-4.00) 10^3/uL [place] # (Auto) (0.10-0.80) 10^3/uL Eos # (Auto) (0.10-0.30) 10^3/uL Baso # (Auto) (0.00-0.10) 10^3/uL Immature Gran # (Auto) (0.00-0.50) 10^3/uL Sodium (136-145) mmol/L Potassium (3.5-5.1) mmol/L Chloride (98-107) mmol/L Carbon Dioxide (21.0-32.0) mmol/L Anion Gap (5-15) mmol/L BUN (7-18) mg/dL Creatinine (0.51-1.17) mg/dL Est Cr Clr Drug Dosing mL/min Estimated GFR (MDRD) mL/min Glucose (70-140) mg/dL POC Glucose (74-106) mg/dl Lactic Acid (0.4-2.0) mmol/L Calcium (8.7-10.3) mg/dL Total Bilirubin (0.2-1.0) mg/dL AST (15-37) U/L ALT (14-63) U/L Alkaline Phosphatase (46-116) U/L C-Reactive Protein 7.6 H (0.0-0.9) mg/dL Total Protein (6.4-8.2) g/dL Albumin (3.40-5.00) g/dL Specimen Type Urine Color Urine Appearance Urine pH Ur Specific [place] Urine Protein Urine Glucose (UA) Urine Ketones Urine Occult Blood Urine Nitrite Urine Bilirubin Urine Urobilinogen Ur Leukocyte Esterase U Hyaline Cast (Auto) Urine RBC Urine WBC Ur Epithelial Cells Other Crystals Amorphous Sediment Urine Bacteria Granular Casts (Auto) Urine Mucus Urine Other Urine Trichomonas Urine Yeast Urinalysis Comment Result Diagrams: 09/07/20 07:20 09/06/20 11:30 Rafi Results Last 24 hrs: Microbiology 09/05/20 17:55 Aerobic Blood Culture - Preliminary Blood - Venous NO GROWTH AFTER 1 DAY Anaerobic Blood Culture - Preliminary NO GROWTH AFTER 1 DAY 09/05/20 18:00 Aerobic Blood Culture - Preliminary Blood - Venous - Lab Draw NO GROWTH AFTER 1 DAY Anaerobic Blood Culture - Preliminary NO GROWTH AFTER 1 DAY Sepsis Event Note - Evaluation Sepsis Screening Result: No Definite Risk - Focused Exam Vital Signs: Vital Signs Temp Pulse Pulse Resp BP BP Pulse Ox 09/07/20 08:14 85 184/78 H 09/07/20 06:10 98.1 F 84 18 179/70 H 95 - Problem List Review Problem List Initiated/Reviewed/Updated: Yes - My Orders Last 24 Hours: My Active Orders 09/06/20 10:55 Incentive Spirometry [RT Incentive Spirometry] [RC] Q1HWA 09/06/20 10:56 Intake and Output [RC] 1400,2200,0600 09/06/20 11:00 Verify Patient Consent Obtain [RC] ASDIRECTED Verify Patient Consent Obtain [RC] ASDIRECTED Pharmacy to Dose - Vancomycin 1 dose .XX ASDIRECTED 09/06/20 11:04 URINALYSIS W/MICROSCOPIC [UA W/MICROSCOPIC] [URIN] Routine 09/06/20 11:25 CULTURE URINE [RM] Routine 09/06/20 Dinner [employer] Diet [DIET] - Plan Plan:: History of Present Illness: Mr Nagel is a 80 y/o gentleman who admitted into INPT status from ED due to sepsis. Patient presented with fever, hypotension, increased confusion and chr onic right heel ulcer. He had been on Doxycycline po x2 weeks until one month ago. Since then he has had medical worms/maggots debriding the wound and has had HH and Family (daughter pharmacist other daughter nurse practitioner) assisting with wound cares 3x/week. Last week family they noticed some increased confusion and suspected a UTI. UA was clear but he was dehydrated. No fever until today. ED course Vital signs; temp 99.9, heart rate 105, BP 103/59, pox 95%, RR 18 CXR; atelectasis bibasilar, mild Lactic acid, 2.4, no repeat, CRP 5.9 Hgb 9.7% Creatinine 0.94 Blood cultures obtained, Pertinent wound history 08/23/2020; Medi-honey gel and ABD to wound, left in place x2 days, offload heel entirely, float heel when in bed and or recliner. Toe touch weight bearing to the right foot. DARCO shoe advised if must ambulate 08/25/2020; first larval dose applied, 08/28/2020 larval therapy removed and SECOND larval dose applied, Recommended wound vac once wound base is better optimized. Consider biologics once wound base is better optimized (Grafix vs oasis?), Prior Auth for negative wound pressure placed. 08/30/2020; Larval therapy removed and THIRD larval dose applied, 09/01/2020; Larval therapy removed and FOURTH larval dose applied, Was to f/u with Dr Call on 09/07 to evaluate need for biologics and negative pressure therapy and to discuss potential need for calcenectomy 09/04/2020; started dakins 0.125% WTD to the heel. HH to assist with dressing change on 09/0509/06/2020 Was to see vascular team, podiatry, and wound care to discuss plan of care Hospital course 09/06/2020; upon admission he was started on vancomycin, blood pressure improved, no longer tachycardic, afebrile, Sharps debridement by Dr. SHRESTHA OR today. Possible PICC placement during that time 09/07/2020; Sharps debridement by Dr. SHRESTHA yesterday without complication. Bone biopsy was performed sent to lab, patient is receiving wet-to-dry dressings to right foot ulceration. BCNG to date, Nurses reporting 30- point discrepancy between home Jennifer glucose monitor and POC reading. Started back on twice daily insulin. PICC line placement tonight. Primary hospital problems --Sepsis; clinical suspect on arrival as slightly tachypneic, hypotension with initial lactate before hydration slightly elevated, slight neutrophilia, qSOFA 1/ --Right medial heel ulceration; Full thick-ness ulceration, was receiving worm therapy, MRSA + 2months ago, Vancomycin, Bactim PO --Possible osteomyelitis, Bone biopsy pending --Immunosuppressed Host --Anemia, parasitic, vitamin B12 deficiency, replacement therapy --Bacterial conjunctivitis, E-Mycin ointment OU Chronic/stable problems --HFpEF Grade I diastolic dysfunction --CAD involving coronary bypass graft, no ischemic picture --PAD, contributable delayed wound healing, s/p lower extremity peripheral angiogram with angioplasty to right superficial femoral, tibioperoneal, pe roneal, and anterior tibial arteries on 08/01/2020. Plavix --HLD, Statin --T2DM, diabetic neuropathy, recent A1C 6.2% Home Jennifer, back on twice daily insulin with SS. May have to consider prandial coverage and change sliding scale to correction scale. Will monitor this closely. Nursing/Lab to c alibrate between sandra, POC and venipuncture --Hx-TIA --Hx Renal transplant, cadaveric, follows with nephrology, On immunosuppressant therapy-Tacrolimus, prednisone --Hx of Skin cancer which was squamous cell carcinoma to multiple areas of the skin. 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 Consideration of negative pressure/wound VAC therapy at some point. Nursing staff to investigate previous prior Auth placement by [employer] [facility]Pharmacy dose vancomycin/trough --Wet-to-dry dressings R heel --Saline Anushka IV --Calibrate blood glucoses between Sandra, POC and venipuncture --Incentive spirometer q2h WA --Ensure out-of-bed after taking Alendronate --Anticipate swing bed candidate here at [facility]
[2020-09-07] MEDS: Acetaminophen 650 MG Tab.ER PO PRN (19:35)
[2020-09-07] MEDS ORDERED: Sodium Chloride 0.9% 100 ML IV SCH (21:00)
[2020-09-07] MEDS: Docusate Sodium 100 MG Cap PO SCH (21:32)
[2020-09-07] MEDS: Magnesium Oxide 500 MG Tab PO SCH (21:32)
[2020-09-07] MEDS: Famotidine 20 MG Tab PO SCH (21:32)
[2020-09-07] MEDS: Donepezil 10 MG Tab PO SCH (21:32)
[2020-09-07] MEDS: Mirtazapine 15 MG Tab PO SCH (21:32)
[2020-09-07] MEDS: TACROLIMUS 0.5 MG PO SCH (21:33)
[2020-09-07] MEDS: PRAVASTATIN 20 MG PO SCH (21:33)
[2020-09-07] MEDS: Erythromycin Base 0.5% Ophth Oint 3.5 GM Tube EYEBOTH SCH (22:15)
[2020-09-07] MEDS: Sodium Chloride 0.9% 10 ML Syringe FLUSH PRN (23:55)
--- NOTE | 2020-09-08 07:43 | CR ---
[id number] RAD/RAD Chest PA or AP 1V EXAM: FRONTAL CHEST INDICATION: PICC LINE PLACEMENT COMPARISON: September 05, 2020. DISCUSSION: Serial radiographs obtained for right upper extremity PICC placement. On the final film the tip is in satisfactory position in the lower SVC. Skinfold overlying the right chest. Mild residual basilar atelectasis with no definite infiltrates. Normal heart size. Prior sternotomy. IMPRESSION: 1. Right upper extremity PICC line tip lower SVC. Dao Rose MD 09/08/20 0742 Thank you for allowing us to participate in the care of your patient.
[2020-09-08 08:14] LABS: ANION GAP 12.3 mmol/L (5-15); CHLORIDE,CL 104 mmol/L (98-107); SODIUM,NA 137 mmol/L (136-145)
[2020-09-08] MEDS: Insulin Glargine,Human Rec. Analog 100 Units/ML 3 ML Pen SUBCUT SCH (08:18)
[2020-09-08] MEDS: Erythromycin Base 0.5% Ophth Oint 3.5 GM Tube EYEBOTH SCH (08:18)
[2020-09-08] MEDS: Insulin Aspart 100 Units/ML 3 ML Pen SUBCUT SCH ×2 (08:19→11:57)
[2020-09-08] MEDS: Cyanocobalamin (Vitamin B12) 500 MCG Tab PO SCH (08:19)
[2020-09-08] MEDS: Zinc (Zinc Gluconate) 50 MG Tab PO SCH (08:19)
[2020-09-08] MEDS: Metoprolol Succinate 50 MG Tab.ER PO SCH (08:19)
[2020-09-08] MEDS: predniSONE 5 MG Tab PO SCH (08:19)
[2020-09-08] MEDS: Cholecalciferol (Vitamin D3) 25 MCG Tab PO SCH (08:19)
[2020-09-08] MEDS: Clopidogrel 75 MG Tab PO SCH (08:19)
[2020-09-08] MEDS: Multivitamins with Minerals/Iron/Folic Acid/Lycopene Tab PO SCH (08:20)
--- NOTE | 2020-09-08 08:20 | OR ---
DATE OF SURGERY: 09/07/2020 SURGEON: Ray Fajardo MD PREOPERATIVE DIAGNOSIS: The patient has right foot infection, question osteomyelitis, status post transplanted kidney, diabetes mellitus, and anemia. POSTOPERATIVE DIAGNOSIS: The patient has right foot infection, question osteomyelitis, status post transplanted kidney, diabetes mellitus, and anemia. OPERATION PERFORMED: PICC line insertion. DESCRIPTION OF PROCEDURE: Informed consent was obtained from the patient regarding this procedure. All possible complications were thoroughly discussed. The patient understands and wishes to proceed. He was kept in the supine Trendelenburg position. The right arm was extended. The medial aspect of the right upper arm was prepped. Ultrasound guidance was used. We introduced a PICC line (Sherlock type) and verified its position in the superior vena cava. X- ray were taken to confirm this. Good outflow was obtained. The PICC line was anchored using the StatLock device. The patient tolerated the procedure well without any complication. /[id number]/MODL MTDD
[2020-09-08] MEDS: TACROLIMUS 1 MG PO SCH (08:23)
[2020-09-08] MEDS: MYCOPHENOLATE 500 MG PO SCH (09:54)
[2020-09-08] MEDS: SODIUM HYPOCHLORITE 0.125% TOP SCH (09:55)
[2020-09-08] MEDS: Sodium Chloride 0.9% 10 ML Syringe FLUSH PRN (09:55)
[2020-09-08 11:06] VITALS: BP 149/54; PULSE 67
--- NOTE | 2020-09-08 12:47 | PCM.DCSUM1 ---
Discharge Summary - Hospital Course Free Text/Narrative:: Date of admission: 09/05/20 Date of discharge: 09/08/20 Admission diagnoses: # Sepsis # Right heel ulcer, full thickness # Possible osteomyelitis # PAD s/p RLE angioplasty 08/01/20 # DMT2 # Anemia of chronic kidney disease and vitamin B12 deficiency # Deconditioning/debility Discharge diagnoses: # Sepsis, resolved # Right heel ulcer, full thickness # Possible osteomyelitis # PAD s/p RLE angioplasty 08/01/20 # DMT2 # Anemia of chronic kidney disease and vitamin B12 deficiency # Deconditioning/debility # Bacterial conjunctivitis Secondary diagnoses: # Hx TIA # CAD s/p CABG # HLD # Aortic stenosis # Diastolic dysfunction # GERD # Constipation # S/p cadaveric renal transplant (2012) # History of BK viremia # Hypomagnesemia # Osteopenia # Protein-calorie malnutrition # Weight loss # MCI # Depression # Insomnia # History SCC of R ear, L arm, and R forearm Consultations: director of social services/case management Physical therapy Procedures: 09/06/20 Right heel ulcer debridement and bone biopsy 09/07/20 PICC line placement Hospital course: 80yoM with a history notable for CKD s/p renal transplant (2012), DMT2, and PAD, with a right heel ulcer present since mid-June who was admitted to inpatient status via the ED on 09/05/20 for suspected sepsis after presenting with tachypnea, hypotension, increased confusion, and elevated lactate (2.4) for which source was presumed to be right heel ulcer. Initial qSOFA 1/3. He was started on IVF and IV vancomycin and had debridement and bone biopsy performed on 09/06/[address] Rosalinda Fajardo. Lactate normalized upon recheck. Blood cultures without growth. PICC line placed on 09/07/20. He had clinical improvement and given need for intensive wound care and ongoing IV antibiotic therapy as well as physical rehabilitation in the setting of profound deconditioning/debility, he was admitted to swing bed status. - Discharge Data Discharge Date: 09/08/20 Discharge Disposition: DC/Tfer W/I Hosp To Swing 61 Condition: Good - Referral to Home Health Primary Care Physician: Kayleigh Jerez MD - Patient Summary/Data Operative Procedure(s) Performed: Debridement of right heel ulcer, sharp and bone biopsy to rule out osteomyelitis. Ulcer size was 5 cm x 5 cm x 1 cm. Consults: Consultations 09/06/20 11:23 Consult to Case Management/Manager Auto [CONS] Routine Consult to [place]ill Technician [CONS] Routine 09/06/20 12:37 Consult to Case Management/Manager Auto [CONS] Routine - Discharge Plan Home Medications: Home Meds Cholecalciferol (Vitamin D3) [Vitamin D3] 2,000 unit PO QAM 05/20/13 [History] Famotidine 20 mg PO BEDTIME 05/20/13 [History] Insulin Aspart [Novolog Flexpen] 6 unit SQ TIDM 05/20/13 [History] Insulin Detemir [Levemir] 8 units SUBCUT BID 05/20/13 [History] Magnesium Oxide 500 mg PO BEDTIME 05/20/13 [History] predniSONE 5 mg PO QAM 05/20/13 [History] Tacrolimus [Prograf] 1 mg PO QAM 06/08/13 [History] Calcitriol 0.25 mcg PO MOWEFR 01/12/17 [History] Metoprolol Succinate [Toprol XL] 50 mg PO QAM 01/12/17 [History] [place]-3 Fatty Acids/Fish Oil [Fish Oil 1,000 mg Softgel] 1 each PO QAM 01/12/17 [History] Tacrolimus [Prograf] 0.5 mg PO BEDTIME 01/12/17 [History] mycophenolate mofetiL [Cellcept] 1,000 mg PO DAILY@1000,2200 01/12/17 [History] Acetaminophen [Tylenol Arthritis] 650 - 1,300 mg PO DAILY PRN 08/19/20 [History] Clopidogrel Bisulfate [Plavix] 75 mg PO QAM 08/19/20 [History] Cyanocobalamin (Vitamin B-12) [B-12] 1,000 mcg PO QAM 08/19/20 [History] Donepezil HCl [Aricept] 10 mg PO BEDTIME 08/19/20 [History] Mirtazapine [Remeron] 15 mg PO BEDTIME 08/19/20 [History] Pravastatin [Pravachol] 20 mg PO BEDTIME 08/19/20 [History] Sodium Hypochlorite [Dakin's] 1 applic TOP DAILY 08/19/20 [History] Referrals: Kayleigh Jerez MD [Primary Care Provider] - - Discharge Summary/Plan Comment DC Time >30 min.: Yes - General Info Date of Service: 09/08/20 Subjective Update: Mr. Nagel reports no concerns today. Aware that plan is for transfer of status today to swing bed. Endorses eating well today and states he has been eating much better in the past few days. He and also endorse that mood has been doing better since last increase in mirtazapine. They both endorse being hopeful for the wound to heal. Denies any concerns. - Patient Data Vitals - Most Recent: Last Vital Signs Temp 36.7 C 09/08/20 11:00 Pulse 67 09/08/20 11:00 Resp 20 09/08/20 11:00 BP 149/54 H 09/08/20 11:00 Pulse Ox 98 09/08/20 11:00 Weight - Most Recent: 68.311 kg I&O - Last 24 hours: Intake & Output 09/07/20 09/08/20 09/08/20 22:59 06:59 14:59 Intake Total 350 395 300 Output Total 500 Balance 350 -105 300 Lab Results - Last 24 hrs: Laboratory Results - last 24 hr 09/06/20 09/07/20 09/07/20 Range/Units 17:15 07:20 09:40 Sodium (136-145) mmol/L Potassium (3.5-5.1) mmol/L Chloride (98-107) mmol/L Carbon Dioxide (21.0-32.0) mmol/L Anion Gap (5-15) mmol/L BUN (7-18) mg/dL Creatinine (0.51-1.17) mg/dL Est Cr Clr Drug Dosing mL/min Estimated GFR (MDRD) mL/min Glucose (70-140) mg/dL POC Glucose (74-106) mg/dl Calcium (8.7-10.3) mg/dL Iron 54 (50-150) ug/dL TIBC 183 L (261-478) ug/dL Unsaturated IBC 129 L (155-355) ug/dL Transferrin % Sat 29.5 (20.0-50.0) % Ferritin 355 H (24-336) ng/mL Vitamin B12 1146 H (180-914) pg/mL Specimen Type Urincc Urine Color Yellow (YELLOW) Urine Appearance Clear (CLEAR) Urine pH 6.0 (5.0-9.0) Ur Specific [place] 1.025 (1.005-1.030) Urine Protein Negative (NEGATIVE) mg/dL Urine Glucose (UA) 250 H (NEGATIVE) mg/dL Urine Ketones Negative (NEGATIVE) mg/dL Urine Occult Blood Negative (NEGATIVE) Urine Nitrite Negative (NEGATIVE) Urine Bilirubin Negative (NEGATIVE) Urine Urobilinogen 0.2 (0.2-1.0) E.U./dL Ur Leukocyte Esterase Negative (NEGATIVE) U Hyaline Cast (Auto) Urine RBC 0-5 (0-5) /HPF Urine WBC 0-5 (0-5) /HPF Ur Epithelial Cells Few /LPF Other Crystals Amorphous Sediment Urine Bacteria Few (NONE TO FEW) /HPF Granular Casts (Auto) Urine Mucus Urine Other Urine Trichomonas Urine Yeast Urinalysis Comment Vancomycin Trough 09/07/20 09/07/20 09/08/20 Range/Units 12:09 20:18 07:25 Sodium (136-145) mmol/L Potassium (3.5-5.1) mmol/L Chloride (98-107) mmol/L Carbon Dioxide (21.0-32.0) mmol/L Anion Gap (5-15) mmol/L BUN (7-18) mg/dL Creatinine (0.51-1.17) mg/dL Est Cr Clr Drug Dosing mL/min Estimated GFR (MDRD) mL/min Glucose (70-140) mg/dL POC Glucose 388 H (74-106) mg/dl Calcium (8.7-10.3) mg/dL Iron (50-150) ug/dL TIBC (261-478) ug/dL Unsaturated IBC (155-355) ug/dL Transferrin % Sat (20.0-50.0) % Ferritin (24-336) ng/mL Vitamin B12 (180-914) pg/mL Specimen Type Cancelled Urine Color Cancelled (YELLOW) Urine Appearance Cancelled (CLEAR) Urine pH Cancelled (5.0-9.0) Ur Specific [place] Cancelled (1.005-1.030) Urine Protein Cancelled (NEGATIVE) mg/dL Urine Glucose (UA) Cancelled (NEGATIVE) mg/dL Urine Ketones Cancelled (NEGATIVE) mg/dL Urine Occult Blood Cancelled (NEGATIVE) Urine Nitrite Cancelled (NEGATIVE) Urine Bilirubin Cancelled (NEGATIVE) Urine Urobilinogen Cancelled (0.2-1.0) E.U./dL Ur Leukocyte Esterase Cancelled (NEGATIVE) U Hyaline Cast (Auto) Cancelled Urine RBC Cancelled (0-5) /HPF Urine WBC Cancelled (0-5) /HPF Ur Epithelial Cells Cancelled /LPF Other Crystals Cancelled Amorphous Sediment Cancelled Urine Bacteria Cancelled (NONE TO FEW) /HPF Granular Casts (Auto) Cancelled Urine Mucus Cancelled Urine Other Cancelled Urine Trichomonas Cancelled Urine Yeast Cancelled Urinalysis Comment Cancelled Vancomycin Trough Cancelled 09/08/20 09/08/20 09/08/20 Range/Units 07:25 07:29 09:31 Sodium 137 (136-145) mmol/L Potassium 4.4 (3.5-5.1) mmol/L Chloride 104 (98-107) mmol/L Carbon Dioxide 25.1 (21.0-32.0) mmol/L Anion Gap 12.3 (5-15) mmol/L BUN 14 (7-18) mg/dL Creatinine 0.62 (0.51-1.17) mg/dL Est Cr Clr Drug Dosing 90.29 mL/min Estimated GFR (MDRD) > 60 mL/min Glucose 313 H (70-140) mg/dL POC Glucose 301 H (74-106) mg/dl Calcium 8.7 (8.7-10.3) mg/dL Iron (50-150) ug/dL TIBC (261-478) ug/dL Unsaturated IBC (155-355) ug/dL Transferrin % Sat (20.0-50.0) % Ferritin (24-336) ng/mL Vitamin B12 (180-914) pg/mL Specimen Type Urine Color (YELLOW) Urine Appearance (CLEAR) Urine pH (5.0-9.0) Ur Specific [place] (1.005-1.030) Urine Protein (NEGATIVE) mg/dL Urine Glucose (UA) (NEGATIVE) mg/dL Urine Ketones (NEGATIVE) mg/dL Urine Occult Blood (NEGATIVE) Urine Nitrite (NEGATIVE) Urine Bilirubin (NEGATIVE) Urine Urobilinogen (0.2-1.0) E.U./dL Ur Leukocyte Esterase (NEGATIVE) U Hyaline Cast (Auto) Urine RBC (0-5) /HPF Urine WBC (0-5) /HPF Ur Epithelial Cells /LPF Other Crystals Amorphous Sediment Urine Bacteria (NONE TO FEW) /HPF Granular Casts (Auto) Urine Mucus Urine Other Urine Trichomonas Urine Yeast Urinalysis Comment Vancomycin Trough 17.7 L 09/08/20 Range/Units 11:53 Sodium (136-145) mmol/L Potassium (3.5-5.1) mmol/L Chloride (98-107) mmol/L Carbon Dioxide (21.0-32.0) mmol/L Anion Gap (5-15) mmol/L BUN (7-18) mg/dL Creatinine (0.51-1.17) mg/dL Est Cr Clr Drug Dosing mL/min Estimated GFR (MDRD) mL/min Glucose (70-140) mg/dL POC Glucose 368 H (74-106) mg/dl Calcium (8.7-10.3) mg/dL Iron (50-150) ug/dL TIBC (261-478) ug/dL Unsaturated IBC (155-355) ug/dL Transferrin % Sat (20.0-50.0) % Ferritin (24-336) ng/mL Vitamin B12 (180-914) pg/mL Specimen Type Urine Color (YELLOW) Urine Appearance (CLEAR) Urine pH (5.0-9.0) Ur Specific [place] (1.005-1.030) Urine Protein (NEGATIVE) mg/dL Urine Glucose (UA) (NEGATIVE) mg/dL Urine Ketones (NEGATIVE) mg/dL Urine Occult Blood (NEGATIVE) Urine Nitrite (NEGATIVE) Urine Bilirubin (NEGATIVE) Urine Urobilinogen (0.2-1.0) E.U./dL Ur Leukocyte Esterase (NEGATIVE) U Hyaline Cast (Auto) Urine RBC (0-5) /HPF Urine WBC (0-5) /HPF Ur Epithelial Cells /LPF Other Crystals Amorphous Sediment Urine Bacteria (NONE TO FEW) /HPF Granular Casts (Auto) Urine Mucus Urine Other Urine Trichomonas Urine Yeast Urinalysis Comment Vancomycin Trough BEVERLY Results - Last 24 hrs: Microbiology 09/06/20 12:19 Gram Stain - Final Wound - Extremity 09/06/20 11:57 Gram Stain - Final Wound - Extremity 09/05/20 17:55 Aerobic Blood Culture - Preliminary Blood - Venous NO GROWTH AFTER 2 DAYS Anaerobic Blood Culture - Preliminary NO GROWTH AFTER 2 DAYS 09/05/20 18:00 Aerobic Blood Culture - Preliminary Blood - Venous - Lab Draw NO GROWTH AFTER 2 DAYS Anaerobic Blood Culture - Preliminary NO GROWTH AFTER 2 DAYS Med Orders - Current: Current Medications Acetaminophen (Acetaminophen 650 Mg Tab.Er) 650 mg PO Q8H PRN PRN Reason: Pain Last Admin: 09/07/20 19:35 Dose: 650 mg Documented by: Calcitriol (Calcitriol 0.25 Mcg Cap) 0.25 mcg PO MOWEFR [facility] [place] Last Admin: 09/06/20 20:28 Dose: 0.25 mcg Documented by: Cholecalciferol (Cholecalciferol (Vitamin D3) 25 Mcg Tab) 50 mcg PO DAILY [facility] [place] Last Admin: 09/08/20 08:19 Dose: 50 mcg Documented by: Clopidogrel Bisulfate (Clopidogrel 75 Mg Tab) 75 mg PO QAM [facility] [place] Last Admin: 09/08/20 08:19 Dose: 75 mg Documented by: Cyanocobalamin (Cyanocobalamin (Vitamin B12) 500 Mcg Tab) 500 mcg PO DAILY [facility] [place] Last Admin: 09/08/20 08:19 Dose: 500 mcg Documented by: Dextrose/Water (50% Dextrose In Water 50 Ml Syringe) 50 ml IV ASDIRECTED PRN PRN Reason: Hypoglycemia Docusate Sodium (Docusate Sodium 100 Mg Cap) 100 mg PO BEDTIME [facility] [place] Last Admin: 09/07/20 21:32 Dose: 100 mg Documented by: Donepezil HCl (Donepezil 10 Mg Tab) 10 mg PO BEDTIME [facility] [place] Last Admin: 09/07/20 21:32 Dose: 10 mg Documented by: Erythromycin (Erythromycin Base 0.5% Ophth Oint 3.5 Gm Tube) 1 gm EYEBOTH TID [facility] [place] Last Admin: 09/08/20 08:18 Dose: 1 applic Documented by: Famotidine (Famotidine 20 Mg Tab) 20 mg PO BEDTIME [facility] [place] Last Admin: 09/07/20 21:32 Dose: 20 mg Documented by: Glucagon (Glucagon,Human Recombinant 1 Mg Vial) 1 mg IM ASDIRECTED PRN PRN Reason: Hypoglycemia Vancomycin HCl 1 gm/ Sodium (Chloride) 250 mls @ 150 mls/hr IV 1000,2200 [facility] [place] Last Admin: 09/08/20 10:16 Dose: 150 mls/hr Documented by: Sodium Chloride (Normal Saline) 100 mls @ 100 mls/hr IV ASDIRECTED [facility] Last Admin: 09/07/20 22:16 Dose: 100 mls/hr Documented by: Insulin Aspart (Insulin Aspart 100 Units/Ml 3 Ml Pen) 0 unit SUBCUT WITHMEALSANDBED [facility]; Protocol Last Admin: 09/08/20 11:57 Dose: 5 units Documented by: Insulin Glargine (Insulin Glargine,Human Rec. Analog 100 Units/Ml 3 Ml Pen) 8 units SUBCUT BID [facility] [place] Last Admin: 09/08/20 08:18 Dose: 8 units Documented by: Magnesium Oxide (Magnesium Oxide 500 Mg Tab) 500 mg PO BEDTIME [facility] [place] Last Admin: 09/07/20 21:32 Dose: 500 mg Documented by: Metoprolol Succinate (Metoprolol Succinate 50 Mg Tab.Er) 50 mg PO QAM [facility] [place] Last Admin: 09/08/20 08:19 Dose: 50 mg Documented by: Mirtazapine (Mirtazapine 15 Mg Tab) 15 mg PO BEDTIME [facility] [place] Last Admin: 09/07/20 21:32 Dose: 15 mg Documented by: Multivitamins/Minerals (Multivitamins With Minerals/Iron/Folic Acid/Lycopene Tab) 1 tab PO DAILY [facility] [place] Last Admin: 09/08/20 08:20 Dose: 1 tab Documented by: Ptom- Mycophenolate (500mg Tablet) 0 each PO DAILY@1000,2200 [facility] [place] Last Admin: 09/08/20 09:54 Dose: 1 each Documented by: Ptom- Pravastatin (20mg Tablet) 1 each PO BEDTIME [facility] [place] Last Admin: 09/07/20 21:33 Dose: 1 each Documented by: Ptom- Tacrolimus 0. (5mg Capsule) 1 each PO BEDTIME [facility] [place] Last Admin: 09/07/20 21:33 Dose: 1 each Documented by: Ptom- Tacrolimus 1mg (Capsule) 1 each PO QAM [facility] [place] Last Admin: 09/08/20 08:23 Dose: 1 each Documented by: Prednisone (Prednisone 5 Mg Tab) 5 mg PO QAM [facility] [place] Last Admin: 09/08/20 08:19 Dose: 5 mg Documented by: Senna/Docusate Sodium (Docusate Sodium/Sennosides 50-8.6 Mg Tab) 1 tab PO DAILY PRN PRN Reason: Constipation Last Admin: 09/08/20 09:54 Dose: 1 tab Documented by: Sodium Chloride (Sodium Chloride 0.9% 10 Ml Syringe) 10 ml FLUSH Q8HR PRN PRN Reason: IV Use Last Admin: 09/08/20 09:55 Dose: 40 ml Documented by: Sodium Hypochlorite (Sodium Hypochlorite 0.125% Top Soln 473 Ml Bot) 0 ml TOP TID [facility] [place] Last Admin: 09/08/20 09:55 Dose: 1 applic Documented by: Vancomycin HCl (Pharmacy To Dose - Vancomycin) 1 dose .XX ASDIRECTED [facility] [place] Zinc Gluconate (Zinc (Zinc Gluconate) 50 Mg Tab) 50 mg PO DAILY [facility] [place] Last Admin: 09/08/20 08:19 Dose: 50 mg Documented by: Discontinued Medications Erythromycin (Erythromycin Base 0.5% Ophth Oint 3.5 Gm Tube) 0 gm EYERT TID [facility] [place] Last Admin: 09/07/20 21:50 Dose: Not Given Documented by: Fentanyl (Fentanyl 100 Mcg/2 Ml Sdv) Confirm Administered Dose 100 mcg .ROUTE .STK-MED ONE Stop: 09/06/20 11:53 Last Admin: 09/06/20 18:03 Dose: Not Given Documented by: Sodium Chloride (Normal Saline) Confirm Administered Dose 1,000 mls @ as directed .ROUTE .STK-MED ONE Stop: 09/05/20 17:38 Last Admin: 09/05/20 18:18 Dose: Not Given Documented by: Sodium Chloride (Normal Saline) 1,000 mls @ 999 mls/hr IV .BOLUS ONE Stop: 09/05/20 19:01 Last Admin: 09/05/20 17:40 Dose: 999 mls/hr Documented by: Sodium Chloride (Normal Saline) Confirm Administered Dose 1,000 mls @ as directed .ROUTE .STK-MED ONE Stop: 09/05/20 18:04 Last Admin: 09/05/20 18:19 Dose: Not Given Documented by: Sodium Chloride (Normal Saline) 1,000 mls @ 999 mls/hr IV .BOLUS ONE Stop: 09/05/20 19:10 Last Admin: 09/05/20 18:10 Dose: 999 mls/hr Documented by: Sodium Chloride (Normal Saline) 1,000 mls @ 250 mls/hr IV ONETIME ONE Stop: 09/05/20 22:25 Last Admin: 09/05/20 18:25 Dose: 250 mls/hr Documented by: Vancomycin HCl 1 gm/ Sodium (Chloride) 250 mls @ 167 mls/hr IV ONETIME ONE Stop: 09/05/20 20:11 Last Admin: 09/05/20 19:03 Dose: 167 mls/hr Documented by: Sodium Chloride (Normal Saline) 1,000 mls @ 50 mls/hr IV ASDIRECTED [facility]O Last Admin: 09/06/20 17:43 Dose: 50 mls/hr Documented by: Lidocaine HCl (Lidocaine 1% 20 Ml Mdv) Confirm Administered Dose 20 ml .ROUTE .STK-MED ONE Stop: 09/06/20 12:07 Last Admin: 09/06/20 18:03 Dose: Not Given Documented by: Lidocaine HCl (Lidocaine 1% 10 Ml Mdv) 3 ml INFILT .STK-MED ONE Stop: 09/06/20 12:06 Last Admin: 09/06/20 12:05 Dose: 3 ml Documented by: Propofol (Propofol 200 Mg/20 Ml Sdv) Confirm Administered Dose 200 mg .ROUTE .STK-MED ONE Stop: 09/06/20 11:53 Last Admin: 09/06/20 18:03 Dose: Not Given Documented by: Trimethoprim/Sulfamethoxazole (Sulfamethoxazole/Trimethoprim 800-160 Mg Tab) 1 tab PO ONETIME ONE Stop: 09/05/20 18:43 Last Admin: 09/05/20 19:05 Dose: 1 tab Documented by: - Exam Physical Findings Comments:: GENERAL: Thin, chronically ill appearing elderly white male sitting in hospital bed in no acute distress. at bedside. HEENT: Normocephalic, atraumatic. Conjunctiva clear. Nares patent without discharge. Mucous membranes moist. NECK: Supple, no masses. CV: Regular rate and rhythm, 2/6 systolic murmur at base without radiation, no rubs or gallops. 2+ radial pulses. PULMONARY: Normal effort, clear to auscultation bilaterally, no wheezes, rales, or rhonchi. ABDOMEN: Positive bowel sounds, soft, nontender, nondistended. EXTREMITIES: No edema, cyanosis, or clubbing. MUSCULOSKELETAL: Moves all extremities well. NEUROLOGICAL: No obvious deficits. DERMATOLOGIC: Diffuse ecchymoses. Multiple healed scars, including of R ear and R forearm. PSYCHIATRIC: Alert, interactive, appropriate affect, mild confusion.
== END 2020-09-08 12:45 | disposition swing bed (61) | DRG 854 ==
LOC: KA.ED 17:14 → KA.MS 18:48
PROVIDERS: ADMIT Family Medicine; ATTEND Family Medicine
PROC: 0QBL0ZX Excision of Right Tarsal, Open Approach, Diagnostic (ICD-10-PCS; principal; 2020-09-06)
PROC: 0JBQ0ZZ Excision of Right Foot Subcutaneous Tissue and Fascia, Open Approach (ICD-10-PCS; 2020-09-06)
PROC: 02HV33Z Insertion of Infusion Device into Superior Vena Cava, Percutaneous Approach (ICD-10-PCS; 2020-09-08)
PROC: B548ZZA Ultrasonography of Superior Vena Cava, Guidance (ICD-10-PCS; 2020-09-08)
DX: A41.9 Sepsis, unspecified organism (principal); R50.9 Fever, unspecified; L97.419 Non-pressure chronic ulcer of right heel and midfoot with unspecified severity; D84.9 Immunodeficiency, unspecified; I50.32 Chronic diastolic (congestive) heart failure; Z94.0 Kidney transplant status; E11.621 Type 2 diabetes mellitus with foot ulcer; E11.51 Type 2 diabetes mellitus with diabetic peripheral angiopathy without gangrene; E11.42 Type 2 diabetes mellitus with diabetic polyneuropathy; K21.9 Gastro-esophageal reflux disease without esophagitis; M85.80 Other specified disorders of bone density and structure, unspecified site; G47.00 Insomnia, unspecified; E53.8 Deficiency of other specified B group vitamins; D64.9 Anemia, unspecified; H10.9 Unspecified conjunctivitis; E11.9 Type 2 diabetes mellitus without complications; E78.5 Hyperlipidemia, unspecified; Z86.73 Personal history of transient ischemic attack (TIA), and cerebral infarction without residual deficits; Z85.828 Personal history of other malignant neoplasm of skin; R41.0 Disorientation, unspecified; Z88.8 Allergy status to other drugs, medicaments and biological substances; Z79.01 Long term (current) use of anticoagulants; Z79.02 Long term (current) use of antithrombotics/antiplatelets; Z79.4 Long term (current) use of insulin; Z79.52 Long term (current) use of systemic steroids; Z79.899 Other long term (current) drug therapy; Z20.822 Contact with and (suspected) exposure to COVID-19
CPT/HCPCS: 01470; 36415; 71045; 80048; 80053; 80202; 81001; 82607; 82728; 82747; 82962; 83540; 83550; 83605; 85014; 85025; 86140; 87040; 87070; 87086; 87088; 87186; 87205; 88307; 88311; 99284; 99285-25; A9270-GY; J1815-GY; J2704; J3370; J7030; J7050; J7512; U0002

== ENCOUNTER 2020-09-08 12:43 | Inpatient (IN) | payer MEDICARE, OTHER ==
[2020-09-08] MEDS ORDERED: 50% Dextrose in Water 50 ML Syringe IV PRN (12:50)
[2020-09-08] MEDS ORDERED: Glucagon,Human Recombinant 1 MG Vial IM PRN ×2 (12:50)
--- NOTE | 2020-09-08 12:57 | PCM.HP.2 ---
H&P History of Present Illness - General Date of Service: 09/08/20 Admit Problem/Dx: Admission Diagnosis/Problem Admission Diagnosis/Problem Sepsis Source of Information: Patient, Family, Old Records, RN, RN Notes Reviewed History Limitations: Reports: No Limitations - History of Present Illness Initial Comments - Free Text/Narative: Mr. Nagel reports no concerns today. Aware that plan is for transfer of status today to swing bed. Endorses eating well today and states he has been eating much better in the past few days. He and also endorse that mood has been doing better since last increase in mirtazapine. They both endorse being hopeful for the wound to heal. Denies any concerns. - Related Data Allergies/Adverse Reactions: Allergies Allergy/AdvReac Type Severity Reaction Status Date / Time NSAIDS (Non-Steroidal Allergy unknown Verified 09/08/20 14:18 Anti-Inflamma Home Medications: Home Meds Cholecalciferol (Vitamin D3) [Vitamin D3] 2,000 unit PO QAM 05/20/13 [History] Famotidine 20 mg PO BEDTIME 05/20/13 [History] Insulin Aspart [Novolog Flexpen] 6 unit SQ TIDM 05/20/13 [History] Insulin Detemir [Levemir] 8 units SUBCUT BID 05/20/13 [History] Magnesium Oxide 500 mg PO BEDTIME 05/20/13 [History] predniSONE 5 mg PO QAM 05/20/13 [History] Tacrolimus [Prograf] 1 mg PO QAM 06/08/13 [History] Calcitriol 0.25 mcg PO MOWEFR 01/12/17 [History] Metoprolol Succinate [Toprol XL] 50 mg PO QAM 01/12/17 [History] [place]-3 Fatty Acids/Fish Oil [Fish Oil 1,000 mg Softgel] 1 each PO QAM 01/12/17 [History] Tacrolimus [Prograf] 0.5 mg PO BEDTIME 01/12/17 [History] mycophenolate mofetiL [Cellcept] 1,000 mg PO DAILY@1000,2200 01/12/17 [History] Acetaminophen [Tylenol Arthritis] 650 - 1,300 mg PO DAILY PRN 08/19/20 [History] Clopidogrel Bisulfate [Plavix] 75 mg PO QAM 08/19/20 [History] Cyanocobalamin (Vitamin B-12) [B-12] 1,000 mcg PO QAM 08/19/20 [History] Donepezil HCl [Aricept] 10 mg PO BEDTIME 08/19/20 [History] Mirtazapine [Remeron] 15 mg PO BEDTIME 08/19/20 [History] Pravastatin [Pravachol] 20 mg PO BEDTIME 08/19/20 [History] Sodium Hypochlorite [Dakin's] 1 applic TOP DAILY 08/19/20 [History] Past Medical History HEENT History: Reports: Hard of Hearing Cardiovascular History: Reports: Bypass, Other (See Below) Other Cardiovascular History: Peripheral artery disease Respiratory History: Reports: Sleep Apnea Gastrointestinal History: Reports: GERD Genitourinary History: Reports: Other (See Below) Other Genitourinary History: Kidney transplant 8 yrs ago Neurological History: Reports: TIA, Other (See Below) Other Neuro History: mild cognitive impairment Psychiatric History: Reports: Other (See Below) Other Psychiatric History: mild cognitive impairment Endocrine/Metabolic History: Reports: Diabetes, Type II, Hypomagnesemia Hematologic History: Reports: B12 Deficiency Immunologic History: Reports: Solid Organ Transplant Oncologic (Cancer) History: Reports: Squamous Cell Carcinoma - Infectious Disease History Infectious Disease History: Reports: MRSA - Past Surgical History Other HEENT Surgeries/Procedures: 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 Exam - Exam Exam: See Below - Exam Physical Exam Comments:: GENERAL: Thin, chronically ill appearing elderly white male sitting in hospital bed in no acute distress. at bedside. HEENT: Normocephalic, atraumatic. Conjunctiva clear. Nares patent without discharge. Mucous membranes moist. NECK: Supple, no masses. CV: Regular rate and rhythm, 2/6 systolic murmur at base without radiation, no rubs or gallops. 2+ radial pulses. PULMONARY: Normal effort, clear to auscultation bilaterally, no wheezes, rales, or rhonchi. ABDOMEN: Positive bowel sounds, soft, nontender, nondistended. EXTREMITIES: No edema, cyanosis, or clubbing. MUSCULOSKELETAL: Moves all extremities well. NEUROLOGICAL: No obvious deficits. DERMATOLOGIC: Diffuse ecchymoses. Multiple healed scars, including of R ear and R forearm. PSYCHIATRIC: Alert, interactive, appropriate affect, mild confusion. - Patient Data Result Diagrams: 09/10/20 07:20 Problem List Initiated/Reviewed/Updated: Yes Orders Last 24hrs: Active Orders 24 hr Category Date Time Status Patient Status [ADT] Routine ADT 09/08/20 12:50 Ordered Blood Glucose Check, Bedside [RC] QIDACANDBED Care 09/08/20 12:50 Ordered Communication Order [RC] DAILY Care 09/08/20 12:50 Ordered Communication Order [RC] DAILY Care 09/08/20 12:50 Ordered Incentive Spirometry [RT Incentive Spirometry] [RC] Care 09/08/20 12:50 Ordered Q1HWA Intake and Output [RC] 1400,2200,0600 Care 09/08/20 12:50 Ordered Consult to Case Management/Property Analyst [CONS] Cons 09/08/20 12:50 Ordered Routine Consult to Platform Worker [CONS] Routine Cons 09/08/20 12:50 Ordered Consult to Physical Therapy [PT Evaluation and Cons 09/08/20 12:50 Ordered Treatment] [CONS] Routine [employer] Diet [DIET] Diet 09/08/20 Dinner Ordered CULTURE BLOOD [BC] Stat Lab 09/08/20 12:50 Ordered CULTURE BLOOD [BC] Stat Lab 09/08/20 12:50 Ordered VANCOMYCIN TROUGH [CHEM] Routine Lab 09/10/20 09:30 Ordered Acetaminophen [Tylenol Arthritis Pain] Med 09/08/20 12:50 Ordered 650 mg PO Q8H PRN Cholecalciferol (Vitamin D3) [Vitamin D3] Med 09/09/20 09:00 Ordered 50 mcg PO DAILY Clopidogrel [Plavix] Med 09/09/20 09:00 Ordered 75 mg PO QAM Cyanocobalamin (Vitamin B12) [Vitamin B12] Med 09/09/20 09:00 Ordered 500 mcg PO DAILY Dextrose 50% in Water Med 09/08/20 12:50 Ordered 50 ml IV ASDIRECTED PRN Dextrose 50% in Water Med 09/08/20 12:50 Ordered 50 ml IV ASDIRECTED PRN Docusate Sodium [Colace] Med 09/08/20 21:00 Ordered 100 mg PO BEDTIME Docusate Sodium/Sennosides [Senna Plus] Med 09/08/20 12:50 Ordered 1 tab PO DAILY PRN Donepezil [Aricept] Med 09/08/20 21:00 Ordered 10 mg PO BEDTIME Erythromycin Base [Erythromycin 0.5% Ophth Oint] Med 09/08/20 14:00 Ordered 1 gm EYEBOTH TID FA/Lycopene/Lut/MV,Ca,Iron,Min [Centrum] Med 09/09/20 09:00 Ordered 1 tab PO DAILY Famotidine [Pepcid] Med 09/08/20 21:00 Ordered 20 mg PO BEDTIME Glucagon,Human Recombinant [GlucaGen] Med 09/08/20 12:50 Ordered 1 mg IM ASDIRECTED PRN Glucagon,Human Recombinant [GlucaGen] Med 09/08/20 12:50 Ordered 1 mg IM ASDIRECTED PRN Insulin Aspart [NovoLOG] Med 09/08/20 18:00 Ordered See Protocol SUBCUT WITHMEALSANDBED Insulin Glarg,Human.Rec.Analog [LantUS Solostar] Med 09/08/20 21:00 Ordered 8 units SUBCUT BID Magnesium Oxide Med 09/08/20 21:00 Ordered 500 mg PO BEDTIME Metoprolol Succinate [Toprol XL] Med 09/09/20 09:00 Ordered 50 mg PO QAM Mirtazapine [Remeron] Med 09/08/20 21:00 Ordered 15 mg PO BEDTIME Patient's Own Medication [Ptom] Med 09/08/20 21:00 Ordered 1 each PO BEDTIME Patient's Own Medication [Ptom] Med 09/08/20 21:00 Ordered 1 each PO BEDTIME Patient's Own Medication [Ptom] Med 09/09/20 09:00 Ordered 1 each PO QAM Patient's Own Medication [Ptom] Med 09/08/20 22:00 Ordered 2 each PO DAILY@1000,2200 Pharmacy to Dose - Vancomycin Med 09/08/20 12:50 Pending 1 dose .XX ASDIRECTED Sodium Chloride 0.9% [Normal Saline] 100 ml Med 09/08/20 12:50 Ordered IV ASDIRECTED Sodium Chloride 0.9% [Saline Flush] Med 09/08/20 12:50 Ordered 10 ml FLUSH Q8HR PRN Sodium Hypochlorite [Dakin's 1/4 Strength] Med 09/08/20 14:00 Ordered 1 ml TOP TID Vancomycin 1 gm Med 09/08/20 22:00 Ordered Sodium Chloride 0.9% [Normal Saline] 250 ml IV 1000,2200 Zinc Gluconate [Zinc] Med 09/09/20 09:00 Ordered 50 mg PO DAILY calcitrioL [Rocaltrol] Med 09/08/20 12:50 Ordered 0.25 mcg PO MOWEFR predniSONE Med 09/09/20 09:00 Ordered 5 mg PO QAM Blood Culture x2 Reflex Set [OM.PC] Stat Oth 09/08/20 12:50 Ordered Code Status [Resuscitation Status] Routine Resus Stat 09/08/20 12:50 Ordered Medication Orders Acetaminophen (Acetaminophen 650 Mg Tab.Er) 650 mg PO Q8H PRN PRN Reason: Pain Calcitriol (Calcitriol 0.25 Mcg Cap) 0.25 mcg PO MOWEFR SHILO Cholecalciferol (Cholecalciferol (Vitamin D3) 25 Mcg Tab) 50 mcg PO DAILY SHILO Clopidogrel Bisulfate (Clopidogrel 75 Mg Tab) 75 mg PO QAM SHILO Assessment/Plan Comment:: HPI summary/Acute hospitalization course: 80yoM with a history notable for CKD s/p renal transplant (2012), DMT2, and PAD, with a right heel ulcer present since mid-June who was admitted to inpatient status via the ED on 09/05/20 for suspected sepsis after presenting with tachypnea, hypotension, increased confusion, and elevated lactate (2.4) for which source was presumed to be right heel ulcer. Initial qSOFA 3. He was started on IVF and IV vancomycin and had debridement and bone biopsy performed on 09/06/[address] Rosalinda Fajardo. Lactate normalized upon recheck. Blood cultures without growth. PICC line placed on 09/07/20. He had clinical improvement and given need for intensive wound care and ongoing IV antibiotic therapy as well as physical rehabilitation in the setting of profound deconditioning/debility, he was admitted to swing bed status. Pertinent recent wound care history: 07/04/20: Initial evaluation for wound. Debridement performed. Started ciproflo xacin/TMP-SMX for 5 days. 07/18/20: Referral to podiatry/wound care. Started doxycycline for 21 days. 08/01/20: Angioplasty to R superficial femoral, tibioperoneal, peroneal, and anterior tibial arteries. 08/23/20: Medi-honey gel and ABD to wound left in place x2 days. Instructed to offload heel entirely, float heel when in bed or recliner, and use toe touch weight bearing to the right foot with [employer] shoe if must ambulate. 08/25/20: First larval dose applied. 08/28/20: Second larval dose applied. Prior authorization for wound vac placed, with plan to consider once wound base better optimized. 08/30/20: Third larval dose applied. 09/01/20: Fourth larval dose applied. Scheduled podiatry re-evaluation for consideration for negative pressure therapy, biologics (Grafix vs [place]?), and calcanectomy. 09/04/20: Started Dakins 0.125% WTD dressings. 09/06/20: Was scheduled to see vascular surgery, podiatry, and wound care at [facility] to discuss plan of care, but was admitted at the time. Hospitalization problems and plan: # Right heel ulcer, full thickness # Possible osteomyelitis # History of sepsis - Await bone biopsy for confirmation of osteomyelitis - Continue blood culture surveillance until final - Continue Dakin's wet-to-dry dressing changes TID - Continue vancomycin, with dosing per pharmacy - Consider future wound vac therapy and consultation with podiatry for calcanectomy # Deconditioning/debility - Physical therapy # DMT2: 08/01/20 A1c 7.6. Labile blood glucose with intermittent hypoglycemia. Discrepancy between bedside glucometer and patient's Sandra. - Continue QID BG checks with bedside glucometer and patient's Sandra; will plan to review correlation in the coming days - Continue Lantus (at home on Levemir) 8un BID and NovoLog low dose sliding scale TIDAC based on bedside glucometer reading # Anemia of chronic kidney disease and vitamin B12 deficiency:Decreased from baseline during acute hospitalization. B12 repleted, folate normal, and iron panel without iron deficiency. - Recheck CBC tomorrow - Continue B12 500mcg daily # Bacterial conjunctivitis - Continue erythromycin ointment to complete 5 day course Chronic, stable conditions: # Hx TIA / CAD s/p CABG / PAD s/p RLE angioplasty 08/01/20 / HLD: Continue clopidogrel 75mg daily, metoprolol succinate 50mg daily, pravastatin 20mg. # Aortic stenosis: 05/19/20 echo with mild aortic stenosis. # Diastolic dysfunction: 05/19/20 echo with grade 1 diastolic dysfunction. Stable fluid status. No diuretics at baseline. # GERD: Controlled. Continue [id number]. # Constipation: Stable. Continue Senna-docusate daily prn, bisacodyl prn. # S/p cadaveric renal transplant (2012) / History of BK viremia: 08/02/20 tacrolimus level 3.5 (target level 4-6) when last adjustment made. Continue tacrolimus 1/0.5mg BID, mycophenolate 1000mg BID, prednisone 5mg daily. Managed by nephrology Dr. Hall last app06/16/20. Next tacrolimus level due 09/11/20. # Hypomagnesemia: 08/02/20 Mg 1.9. Continue magnesium oxide 500mg daily. # Osteopenia: Last Dexa Date 07/09/2016. Continue alendronate weekly, calcitriol 0.25mcg MWF, vitamin D 50mcg daily. # Protein-calorie malnutrition / Weight loss: Stable recently. Continue MV daily, zinc 50mg daily. Monitor weight weekly. # MCI: Stable.Continue donepezil 10mg daily. # Depression / Insomnia: Improved recently. Continue mirtazapine 15mg daily. M onitor closely. # History SCC of R ear, L arm, and R forearm: S/p multiple excisions. Followed by dermatology. Hospitalization details: # FEN: No IVF. Electrolytes normal. Diabetic diet. # PPX: DVT ppx not indicated during swing bed stay. Will hold off on melatonin for delirium ppx given current use of mirtazapine. # Code status: CPR ONLY, DNI. # Emergency contact: , Fiordaliza, who was updated at bedside. # Disposition: Admit to swing bed status for further management of heel ulcer and deconditioning/debility.
[2020-09-08] MEDS ORDERED: Bisacodyl 10 MG Supp RECTAL PRN (13:50)
[2020-09-08] MEDS: Erythromycin Base 0.5% Ophth Oint 3.5 GM Tube EYEBOTH SCH ×2 (14:15→22:20)
[2020-09-08] MEDS: SODIUM HYPOCHLORITE 0.25% TOP SCH ×2 (14:15→23:08)
[2020-09-08] MEDS: Insulin Aspart 100 Units/ML 3 ML Pen SUBCUT SCH ×2 (18:04→22:18)
[2020-09-08] MEDS ORDERED: Docusate Sodium 100 MG Cap PO SCH (21:00)
[2020-09-08] MEDS: Docusate Sodium 100 MG Cap PO SCH (22:09)
[2020-09-08] MEDS: Magnesium Oxide 500 MG Tab PO SCH (22:09)
[2020-09-08] MEDS: Mirtazapine 15 MG Tab PO SCH (22:10)
[2020-09-08] MEDS: Donepezil 10 MG Tab PO SCH (22:10)
[2020-09-08] MEDS: Famotidine 20 MG Tab PO SCH (22:10)
[2020-09-08] MEDS: Calcitriol 0.25 MCG Cap PO SCH (22:11)
[2020-09-08] MEDS: MYCOPHENOLATE 500 MG PO SCH (22:14)
[2020-09-08] MEDS: TACROLIMUS 0.5 MG PO SCH (22:15)
[2020-09-08] MEDS: PRAVASTATIN 20 MG PO SCH (22:15)
[2020-09-08] MEDS: Insulin Glargine,Human Rec. Analog 100 Units/ML 3 ML Pen SUBCUT SCH (22:17)
[2020-09-08] MEDS: Sodium Chloride 0.9% 100 ML IV SCH (22:22)
[2020-09-08] MEDS: Acetaminophen 650 MG Tab.ER PO PRN (23:39)
[2020-09-09] MEDS: Insulin Glargine,Human Rec. Analog 100 Units/ML 3 ML Pen SUBCUT SCH ×2 (08:10→22:18)
[2020-09-09] MEDS: Insulin Aspart 100 Units/ML 3 ML Pen SUBCUT SCH ×4 (08:10→22:19)
[2020-09-09] MEDS: Acetaminophen 650 MG Tab.ER PO PRN (09:42)
[2020-09-09] MEDS: MYCOPHENOLATE 500 MG PO SCH ×2 (09:42→22:24)
[2020-09-09] MEDS: Clopidogrel 75 MG Tab PO SCH (09:43)
[2020-09-09] MEDS: Docusate Sodium 100 MG Cap PO SCH ×2 (09:43→22:59)
[2020-09-09] MEDS: TACROLIMUS 1 MG PO SCH (09:43)
[2020-09-09] MEDS: Erythromycin Base 0.5% Ophth Oint 3.5 GM Tube EYEBOTH SCH ×3 (09:43→22:59)
[2020-09-09] MEDS: Cyanocobalamin (Vitamin B12) 500 MCG Tab PO SCH (09:51)
[2020-09-09] MEDS: Multivitamins with Minerals/Iron/Folic Acid/Lycopene Tab PO SCH (09:51)
[2020-09-09] MEDS: predniSONE 5 MG Tab PO SCH (09:52)
[2020-09-09] MEDS: Zinc (Zinc Gluconate) 50 MG Tab PO SCH (09:52)
[2020-09-09] MEDS: Cholecalciferol (Vitamin D3) 25 MCG Tab PO SCH (09:52)
[2020-09-09] MEDS: Metoprolol Succinate 50 MG Tab.ER PO SCH (09:53)
[2020-09-09] MEDS: SODIUM HYPOCHLORITE 0.25% TOP SCH ×3 (09:53→22:28)
[2020-09-09] MEDS: Acetaminophen 325 MG Tab PO PRN (13:41)
[2020-09-09] MEDS: TACROLIMUS 0.5 MG PO SCH (22:23)
[2020-09-09] MEDS: PRAVASTATIN 20 MG PO SCH (22:24)
[2020-09-09] MEDS: Mirtazapine 15 MG Tab PO SCH (22:25)
[2020-09-09] MEDS: Donepezil 10 MG Tab PO SCH (22:25)
[2020-09-09] MEDS: Famotidine 20 MG Tab PO SCH (22:25)
[2020-09-09] MEDS: Sodium Chloride 0.9% 100 ML IV SCH (22:31)
[2020-09-09] MEDS: Magnesium Oxide 500 MG Tab PO SCH (22:59)
[2020-09-10] MEDS: Acetaminophen 325 MG Tab PO PRN ×3 (00:43→19:20)
[2020-09-10] MEDS: Insulin Aspart 100 Units/ML 3 ML Pen SUBCUT SCH ×4 (07:48→21:39)
[2020-09-10] MEDS: Docusate Sodium 100 MG Cap PO SCH ×2 (08:20→20:29)
[2020-09-10] MEDS: Clopidogrel 75 MG Tab PO SCH (08:20)
[2020-09-10] MEDS: Metoprolol Succinate 50 MG Tab.ER PO SCH (08:21)
[2020-09-10] MEDS: TACROLIMUS 1 MG PO SCH (08:21)
[2020-09-10] MEDS: Zinc (Zinc Gluconate) 50 MG Tab PO SCH (08:21)
[2020-09-10] MEDS: predniSONE 5 MG Tab PO SCH (08:21)
[2020-09-10] MEDS: Cholecalciferol (Vitamin D3) 25 MCG Tab PO SCH (08:21)
[2020-09-10] MEDS: Multivitamins with Minerals/Iron/Folic Acid/Lycopene Tab PO SCH (08:21)
[2020-09-10] MEDS: Insulin Glargine,Human Rec. Analog 100 Units/ML 3 ML Pen SUBCUT SCH ×2 (08:21→21:36)
[2020-09-10] MEDS: Cyanocobalamin (Vitamin B12) 500 MCG Tab PO SCH (08:21)
[2020-09-10] MEDS: SODIUM HYPOCHLORITE 0.25% TOP SCH ×3 (08:23→20:29)
[2020-09-10] MEDS: Erythromycin Base 0.5% Ophth Oint 3.5 GM Tube EYEBOTH SCH ×3 (08:23→20:30)
[2020-09-10] MEDS: MYCOPHENOLATE 500 MG PO SCH ×2 (10:30→21:36)
[2020-09-10] MEDS ORDERED: 50% Dextrose in Water 50 ML Syringe IV PRN (17:42)
[2020-09-10] MEDS ORDERED: Glucagon,Human Recombinant 1 MG Vial IM PRN (17:42)
[2020-09-10] MEDS: Donepezil 10 MG Tab PO SCH (20:29)
[2020-09-10] MEDS: Famotidine 20 MG Tab PO SCH (20:30)
[2020-09-10] MEDS: Magnesium Oxide 500 MG Tab PO SCH (20:30)
[2020-09-10] MEDS: PRAVASTATIN 20 MG PO SCH (20:30)
[2020-09-10] MEDS: Mirtazapine 15 MG Tab PO SCH (20:31)
[2020-09-10] MEDS: TACROLIMUS 0.5 MG PO SCH (20:31)
[2020-09-11] MEDS: Acetaminophen 325 MG Tab PO PRN ×2 (00:57→12:27)
[2020-09-11] MEDS: Multivitamins with Minerals/Iron/Folic Acid/Lycopene Tab PO SCH (08:42)
[2020-09-11] MEDS: Zinc (Zinc Gluconate) 50 MG Tab PO SCH (08:42)
[2020-09-11] MEDS: Clopidogrel 75 MG Tab PO SCH (08:43)
[2020-09-11] MEDS: Cholecalciferol (Vitamin D3) 25 MCG Tab PO SCH (08:43)
[2020-09-11] MEDS: Docusate Sodium 100 MG Cap PO SCH ×2 (08:43→20:51)
[2020-09-11] MEDS: Cyanocobalamin (Vitamin B12) 500 MCG Tab PO SCH (08:44)
[2020-09-11] MEDS: predniSONE 5 MG Tab PO SCH (08:44)
[2020-09-11] MEDS: TACROLIMUS 1 MG PO SCH (08:45)
[2020-09-11] MEDS: Insulin Aspart 100 Units/ML 3 ML Pen SUBCUT SCH ×4 (08:49→22:28)
[2020-09-11] MEDS: Insulin Glargine,Human Rec. Analog 100 Units/ML 3 ML Pen SUBCUT SCH ×2 (08:50→21:00)
[2020-09-11] MEDS: Erythromycin Base 0.5% Ophth Oint 3.5 GM Tube EYEBOTH SCH ×4 (09:10→21:13)
[2020-09-11] MEDS: SODIUM HYPOCHLORITE 0.25% TOP SCH ×3 (09:11→21:37)
[2020-09-11] MEDS: Metoprolol Succinate 50 MG Tab.ER PO SCH (10:59)
[2020-09-11] MEDS: MYCOPHENOLATE 500 MG PO SCH ×2 (11:00→22:26)
[2020-09-11] MEDS ORDERED: cefTRIAXone 1 GM Vial IVPUSH SCH (15:30)
--- NOTE | 2020-09-11 15:31 | PCM.SN.2 ---
- Free Text/Narrative Note: Reviewed culture results from wound culture 2 foot date of collection September 06. Heavy growth E. coli, pseudomonas and Serratia marcescens--pansensitive to ciprofloxacin. place patient on ciprofloxacin. We will research bone biopsy to see if preliminary results show evidence of osteomyelitis. Hold vancomycin at this time.
[2020-09-11] MEDS: Ciprofloxacin in D5W 400 MG in Premix Bag 1 BAG IV SCH ×2 (16:06)
[2020-09-11] MEDS: Sodium Chloride 0.9% 100 ML IV SCH (16:07)
[2020-09-11] MEDS: Calcitriol 0.25 MCG Cap PO SCH (20:13)
[2020-09-11] MEDS: Donepezil 10 MG Tab PO SCH (20:51)
[2020-09-11] MEDS: Magnesium Oxide 500 MG Tab PO SCH (20:52)
[2020-09-11] MEDS: PRAVASTATIN 20 MG PO SCH (20:53)
[2020-09-11] MEDS: Famotidine 20 MG Tab PO SCH (20:53)
[2020-09-11] MEDS: TACROLIMUS 0.5 MG PO SCH (20:54)
[2020-09-11] MEDS: Mirtazapine 15 MG Tab PO SCH (20:55)
[2020-09-11] MEDS: Diclofenac Sodium 1% Gel 100 GM Tube TOP PRN (20:56)
[2020-09-12] MEDS: Ciprofloxacin in D5W 400 MG in Premix Bag 1 BAG IV SCH ×8 (00:12→23:42)
[2020-09-12] MEDS: Acetaminophen 325 MG Tab PO PRN (08:39)
[2020-09-12] MEDS ORDERED: traMADol 50 MG Tab PO PRN (08:39)
[2020-09-12] MEDS: Insulin Aspart 100 Units/ML 3 ML Pen SUBCUT SCH ×7 (08:40→21:13)
[2020-09-12] MEDS: Cholecalciferol (Vitamin D3) 25 MCG Tab PO SCH (09:23)
[2020-09-12] MEDS: Clopidogrel 75 MG Tab PO SCH (09:24)
[2020-09-12] MEDS: Cyanocobalamin (Vitamin B12) 500 MCG Tab PO SCH (09:24)
[2020-09-12] MEDS: predniSONE 5 MG Tab PO SCH (09:24)
[2020-09-12] MEDS: Zinc (Zinc Gluconate) 50 MG Tab PO SCH (09:24)
[2020-09-12] MEDS: Docusate Sodium 100 MG Cap PO SCH ×2 (09:24→21:26)
[2020-09-12] MEDS: Multivitamins with Minerals/Iron/Folic Acid/Lycopene Tab PO SCH (09:24)
[2020-09-12] MEDS: TACROLIMUS 1 MG PO SCH (09:30)
[2020-09-12] MEDS: SODIUM HYPOCHLORITE 0.25% TOP SCH ×3 (09:36→21:30)
[2020-09-12] MEDS: Erythromycin Base 0.5% Ophth Oint 3.5 GM Tube EYEBOTH SCH ×4 (09:37→21:26)
[2020-09-12] MEDS: Insulin Glargine,Human Rec. Analog 100 Units/ML 3 ML Pen SUBCUT SCH ×2 (09:45→20:56)
[2020-09-12] MEDS: Metoprolol Succinate 50 MG Tab.ER PO SCH (09:51)
[2020-09-12] MEDS: MYCOPHENOLATE 500 MG PO SCH ×2 (10:20→22:21)
[2020-09-12] MEDS: Sodium Chloride 0.9% 100 ML IV SCH (16:15)
[2020-09-12] MEDS ORDERED: Insulin Aspart 100 Units/ML 3 ML Pen SUBCUT ONE ×2 (16:38→17:58)
[2020-09-12] MEDS ORDERED: Glucagon,Human Recombinant 1 MG Vial IM PRN (21:00)
[2020-09-12] MEDS ORDERED: 50% Dextrose in Water 50 ML Syringe IV PRN (21:00)
[2020-09-12] MEDS: Magnesium Oxide 500 MG Tab PO SCH (21:26)
[2020-09-12] MEDS: Famotidine 20 MG Tab PO SCH (21:26)
[2020-09-12] MEDS: Donepezil 10 MG Tab PO SCH (21:26)
[2020-09-12] MEDS: Mirtazapine 15 MG Tab PO SCH (21:26)
[2020-09-12] MEDS: PRAVASTATIN 20 MG PO SCH (21:28)
[2020-09-12] MEDS: TACROLIMUS 0.5 MG PO SCH (21:28)
[2020-09-12] MEDS ORDERED: Insulin Glargine,Human Rec. Analog 100 Units/ML 3 ML Pen SUBCUT ONE (22:00)
[2020-09-12] MEDS: Sodium Chloride 0.9% 10 ML Syringe FLUSH PRN (23:44)
[2020-09-13] MEDS: Sodium Chloride 0.9% 10 ML Syringe FLUSH PRN ×3 (01:05→15:58)
[2020-09-13] MEDS: Ciprofloxacin in D5W 400 MG in Premix Bag 1 BAG IV SCH ×6 (07:47→23:09)
[2020-09-13] MEDS: Insulin Aspart 100 Units/ML 3 ML Pen SUBCUT SCH ×7 (07:52→21:02)
[2020-09-13 07:53] LABS: CHLORIDE,CL 102 mmol/L (98-107); SODIUM,NA 138 mmol/L (136-145)
[2020-09-13] MEDS: Insulin Glargine,Human Rec. Analog 100 Units/ML 3 ML Pen SUBCUT SCH ×2 (08:01→21:05)
[2020-09-13] MEDS: Erythromycin Base 0.5% Ophth Oint 3.5 GM Tube EYEBOTH SCH ×3 (08:02→21:08)
[2020-09-13] MEDS: TACROLIMUS 1 MG PO SCH (08:02)
[2020-09-13] MEDS: Cholecalciferol (Vitamin D3) 25 MCG Tab PO SCH (08:02)
[2020-09-13] MEDS: predniSONE 5 MG Tab PO SCH (08:03)
[2020-09-13] MEDS: Metoprolol Succinate 50 MG Tab.ER PO SCH (08:03)
[2020-09-13] MEDS: Zinc (Zinc Gluconate) 50 MG Tab PO SCH (08:03)
[2020-09-13] MEDS: Clopidogrel 75 MG Tab PO SCH (08:03)
[2020-09-13] MEDS: Docusate Sodium 100 MG Cap PO SCH ×2 (08:03→21:01)
[2020-09-13] MEDS: Multivitamins with Minerals/Iron/Folic Acid/Lycopene Tab PO SCH (08:03)
[2020-09-13] MEDS: Cyanocobalamin (Vitamin B12) 500 MCG Tab PO SCH (08:04)
[2020-09-13] MEDS: SODIUM HYPOCHLORITE 0.25% TOP SCH ×3 (08:04→21:09)
[2020-09-13] MEDS: MYCOPHENOLATE 500 MG PO SCH ×2 (09:04→21:08)
[2020-09-13] MEDS: Acetaminophen 325 MG Tab PO PRN (09:54)
[2020-09-13] MEDS: Calcitriol 0.25 MCG Cap PO SCH (21:00)
[2020-09-13] MEDS: Mirtazapine 15 MG Tab PO SCH (21:01)
[2020-09-13] MEDS: Donepezil 10 MG Tab PO SCH (21:01)
[2020-09-13] MEDS: Magnesium Oxide 500 MG Tab PO SCH (21:01)
[2020-09-13] MEDS: Famotidine 20 MG Tab PO SCH (21:01)
[2020-09-13] MEDS: TACROLIMUS 0.5 MG PO SCH (21:06)
[2020-09-13] MEDS: PRAVASTATIN 20 MG PO SCH (21:07)
[2020-09-13] MEDS: Sodium Chloride 0.9% 100 ML IV SCH (23:13)
[2020-09-14] MEDS: Acetaminophen 325 MG Tab PO PRN (07:05)
[2020-09-14] MEDS: Ciprofloxacin in D5W 400 MG in Premix Bag 1 BAG IV SCH ×2 (07:55)
[2020-09-14] MEDS: Sodium Chloride 0.9% 10 ML Syringe FLUSH PRN ×2 (07:58→16:00)
[2020-09-14] MEDS: Insulin Aspart 100 Units/ML 3 ML Pen SUBCUT SCH ×7 (08:00→21:22)
[2020-09-14] MEDS: Insulin Glargine,Human Rec. Analog 100 Units/ML 3 ML Pen SUBCUT SCH ×2 (08:00→21:18)
[2020-09-14] MEDS: Erythromycin Base 0.5% Ophth Oint 3.5 GM Tube EYEBOTH SCH ×3 (08:01→21:21)
[2020-09-14] MEDS: TACROLIMUS 1 MG PO SCH (08:01)
[2020-09-14] MEDS: Cholecalciferol (Vitamin D3) 25 MCG Tab PO SCH (08:02)
[2020-09-14] MEDS: Clopidogrel 75 MG Tab PO SCH (08:02)
[2020-09-14] MEDS: predniSONE 5 MG Tab PO SCH (08:03)
[2020-09-14] MEDS: Cyanocobalamin (Vitamin B12) 500 MCG Tab PO SCH (08:03)
[2020-09-14] MEDS: Docusate Sodium 100 MG Cap PO SCH ×2 (08:03→21:12)
[2020-09-14] MEDS: Multivitamins with Minerals/Iron/Folic Acid/Lycopene Tab PO SCH (08:03)
[2020-09-14] MEDS: Zinc (Zinc Gluconate) 50 MG Tab PO SCH (08:03)
[2020-09-14] MEDS: SODIUM HYPOCHLORITE 0.25% TOP SCH ×3 (08:04→21:24)
[2020-09-14] MEDS: Metoprolol Succinate 50 MG Tab.ER PO SCH ×2 (09:48→11:23)
[2020-09-14] MEDS: MYCOPHENOLATE 500 MG PO SCH (09:49)
--- NOTE | 2020-09-14 12:25 | US ---
[id number] US/US Arterial Duplex LE Right Exam: US Arterial Duplex LE Right Clinical Data: NONHEALING ULCER OF RIGHT FOOT COMPARISON: NO PREVIOUS SIMILAR EXAM IS AVAILABLE FINDINGS: There is mild to moderate infrapopliteal disease on the right side The exam otherwise is unremarkable IMPRESSION: INFRAPOPLITEAL ATHEROMATOUS DISEASE Zoran Palmer MD 09/14/20 [id number] Thank you for allowing us to participate in the care of your patient.
--- NOTE | 2020-09-14 12:26 | US ---
[id number] US/US LUZ Exam: US LUZ Clinical Data: NONHEALING ULCER RIGHT FOOT COMPARISON: NO PREVIOUS SIMILAR EXAM IS AVAILABLE FINDINGS: The vessels are not compressible on the right side The ankle-brachial index on the left side is 0.6 IMPRESSION: INDETERMINATE EXAM ON THE RIGHT ABNORMAL EXAM ON THE LEFT Zoran Palmer MD 09/14/20 [id number] Thank you for allowing us to participate in the care of your patient.
[2020-09-14] MEDS: Levofloxacin/Dextrose 5%-Water 500 MG in Premix Bag 1 BAG IV SCH (16:00)
[2020-09-14] MEDS: Levofloxacin/Dextrose 5%-Water 250 MG in Premix Bag 1 BAG IV SCH (17:11)
[2020-09-14] MEDS: Magnesium Oxide 500 MG Tab PO SCH (21:10)
[2020-09-14] MEDS: Pravastatin 20 MG Tab PO SCH (21:11)
[2020-09-14] MEDS: Famotidine 20 MG Tab PO SCH (21:11)
[2020-09-14] MEDS: Tacrolimus 0.5 MG Cap PO SCH (21:12)
[2020-09-14] MEDS: Mirtazapine 15 MG Tab PO SCH (21:12)
[2020-09-14] MEDS: Donepezil 10 MG Tab PO SCH (21:17)
[2020-09-15] MEDS: Insulin Aspart 100 Units/ML 3 ML Pen SUBCUT SCH ×7 (08:36→21:57)
[2020-09-15] MEDS: Multivitamins with Minerals/Iron/Folic Acid/Lycopene Tab PO SCH (08:39)
[2020-09-15] MEDS: Docusate Sodium 100 MG Cap PO SCH ×2 (08:39→20:45)
[2020-09-15] MEDS: Zinc (Zinc Gluconate) 50 MG Tab PO SCH (08:39)
[2020-09-15] MEDS: Cholecalciferol (Vitamin D3) 25 MCG Tab PO SCH (08:39)
[2020-09-15] MEDS: Cyanocobalamin (Vitamin B12) 500 MCG Tab PO SCH (08:39)
[2020-09-15] MEDS: Tacrolimus 1 MG Cap PO SCH (08:39)
[2020-09-15] MEDS: Clopidogrel 75 MG Tab PO SCH (08:39)
[2020-09-15] MEDS: predniSONE 5 MG Tab PO SCH (08:39)
[2020-09-15] MEDS: Erythromycin Base 0.5% Ophth Oint 3.5 GM Tube EYEBOTH SCH (08:40)
[2020-09-15] MEDS: Insulin Glargine,Human Rec. Analog 100 Units/ML 3 ML Pen SUBCUT SCH ×2 (08:40→20:48)
[2020-09-15] MEDS: Metoprolol Succinate 50 MG Tab.ER PO SCH (08:42)
[2020-09-15] MEDS: SODIUM HYPOCHLORITE 0.25% TOP SCH ×3 (08:48→20:47)
[2020-09-15] MEDS: Acetaminophen 325 MG Tab PO PRN (10:04)
[2020-09-15] MEDS: Sodium Chloride 0.9% 100 ML IV SCH (15:58)
[2020-09-15] MEDS: Levofloxacin/Dextrose 5%-Water 500 MG in Premix Bag 1 BAG IV SCH (15:59)
[2020-09-15] MEDS: Levofloxacin/Dextrose 5%-Water 250 MG in Premix Bag 1 BAG IV SCH (17:10)
[2020-09-15] MEDS: Calcitriol 0.25 MCG Cap PO SCH (20:15)
[2020-09-15] MEDS: Magnesium Oxide 500 MG Tab PO SCH (20:45)
[2020-09-15] MEDS: Famotidine 20 MG Tab PO SCH (20:45)
[2020-09-15] MEDS: Tacrolimus 0.5 MG Cap PO SCH (20:45)
[2020-09-15] MEDS: Donepezil 10 MG Tab PO SCH (20:46)
[2020-09-15] MEDS: Pravastatin 20 MG Tab PO SCH (20:46)
[2020-09-15] MEDS: Mirtazapine 15 MG Tab PO SCH (20:46)
[2020-09-16] MEDS: Acetaminophen 325 MG Tab PO PRN (06:10)
[2020-09-16] MEDS: Insulin Aspart 100 Units/ML 3 ML Pen SUBCUT SCH ×7 (08:15→21:25)
[2020-09-16] MEDS: Docusate Sodium 100 MG Cap PO SCH ×2 (08:16→21:00)
[2020-09-16] MEDS: Zinc (Zinc Gluconate) 50 MG Tab PO SCH (08:17)
[2020-09-16] MEDS: Cyanocobalamin (Vitamin B12) 500 MCG Tab PO SCH (08:17)
[2020-09-16] MEDS: Clopidogrel 75 MG Tab PO SCH (08:17)
[2020-09-16] MEDS: Tacrolimus 1 MG Cap PO SCH (08:18)
[2020-09-16] MEDS: Multivitamins with Minerals/Iron/Folic Acid/Lycopene Tab PO SCH (08:18)
[2020-09-16] MEDS: predniSONE 5 MG Tab PO SCH (08:23)
[2020-09-16] MEDS: Cholecalciferol (Vitamin D3) 25 MCG Tab PO SCH (08:24)
[2020-09-16] MEDS: SODIUM HYPOCHLORITE 0.25% TOP SCH ×3 (08:27→21:19)
[2020-09-16] MEDS: Metoprolol Succinate 50 MG Tab.ER PO SCH (08:27)
[2020-09-16] MEDS: Insulin Glargine,Human Rec. Analog 100 Units/ML 3 ML Pen SUBCUT SCH ×2 (08:28→21:24)
[2020-09-16] MEDS: Acetaminophen 325 MG Tab PO SCH ×4 (11:54→20:59)
[2020-09-16] MEDS: SALONPAS TOP SCH ×2 (12:06→21:27)
[2020-09-16] MEDS: Levofloxacin/Dextrose 5%-Water 500 MG in Premix Bag 1 BAG IV SCH (15:18)
[2020-09-16] MEDS: Levofloxacin/Dextrose 5%-Water 250 MG in Premix Bag 1 BAG IV SCH (16:33)
[2020-09-16] MEDS: Pravastatin 20 MG Tab PO SCH (20:58)
[2020-09-16] MEDS: Tacrolimus 0.5 MG Cap PO SCH (20:58)
[2020-09-16] MEDS: Donepezil 10 MG Tab PO SCH (20:59)
[2020-09-16] MEDS: Famotidine 20 MG Tab PO SCH (20:59)
[2020-09-16] MEDS: Magnesium Oxide 500 MG Tab PO SCH (20:59)
[2020-09-16] MEDS: Mirtazapine 15 MG Tab PO SCH (21:00)
[2020-09-17] MEDS: Acetaminophen 325 MG Tab PO SCH ×6 (03:07→22:17)
[2020-09-17] MEDS: Docusate Sodium 100 MG Cap PO SCH ×2 (08:48→20:50)
[2020-09-17] MEDS: Multivitamins with Minerals/Iron/Folic Acid/Lycopene Tab PO SCH (08:48)
[2020-09-17] MEDS: Cholecalciferol (Vitamin D3) 25 MCG Tab PO SCH (08:49)
[2020-09-17] MEDS: Clopidogrel 75 MG Tab PO SCH (08:49)
[2020-09-17] MEDS: Cyanocobalamin (Vitamin B12) 500 MCG Tab PO SCH (08:49)
[2020-09-17] MEDS: Tacrolimus 1 MG Cap PO SCH (08:49)
[2020-09-17] MEDS: Zinc (Zinc Gluconate) 50 MG Tab PO SCH (08:49)
[2020-09-17] MEDS: predniSONE 5 MG Tab PO SCH (08:49)
[2020-09-17] MEDS: Metoprolol Succinate 50 MG Tab.ER PO SCH (08:51)
[2020-09-17] MEDS: Insulin Aspart 100 Units/ML 3 ML Pen SUBCUT SCH ×7 (08:55→22:17)
[2020-09-17] MEDS: SODIUM HYPOCHLORITE 0.25% TOP SCH ×3 (08:57→20:51)
[2020-09-17] MEDS: Insulin Glargine,Human Rec. Analog 100 Units/ML 3 ML Pen SUBCUT SCH ×2 (09:00→20:54)
[2020-09-17] MEDS: SALONPAS TOP SCH ×2 (10:22→22:19)
[2020-09-17] MEDS: Levofloxacin/Dextrose 5%-Water 500 MG in Premix Bag 1 BAG IV SCH (15:01)
[2020-09-17] MEDS: Levofloxacin/Dextrose 5%-Water 250 MG in Premix Bag 1 BAG IV SCH (16:11)
[2020-09-17] MEDS: Mirtazapine 15 MG Tab PO SCH (20:50)
[2020-09-17] MEDS: Donepezil 10 MG Tab PO SCH (20:50)
[2020-09-17] MEDS: Magnesium Oxide 500 MG Tab PO SCH (20:51)
[2020-09-17] MEDS: Pravastatin 20 MG Tab PO SCH (20:51)
[2020-09-17] MEDS: Tacrolimus 0.5 MG Cap PO SCH (20:51)
[2020-09-17] MEDS: Famotidine 20 MG Tab PO SCH (20:51)
[2020-09-18] MEDS: Acetaminophen 325 MG Tab PO SCH ×6 (02:48→21:34)
[2020-09-18] MEDS: Insulin Aspart 100 Units/ML 3 ML Pen SUBCUT SCH ×7 (07:38→21:33)
[2020-09-18] MEDS: Cholecalciferol (Vitamin D3) 25 MCG Tab PO SCH (09:32)
[2020-09-18] MEDS: Multivitamins with Minerals/Iron/Folic Acid/Lycopene Tab PO SCH (09:33)
[2020-09-18] MEDS: Docusate Sodium 100 MG Cap PO SCH ×2 (09:33→21:03)
[2020-09-18] MEDS: Tacrolimus 1 MG Cap PO SCH (09:33)
[2020-09-18] MEDS: Metoprolol Succinate 50 MG Tab.ER PO SCH (09:33)
[2020-09-18] MEDS: Zinc (Zinc Gluconate) 50 MG Tab PO SCH (09:33)
[2020-09-18] MEDS: predniSONE 5 MG Tab PO SCH (09:34)
[2020-09-18] MEDS: Cyanocobalamin (Vitamin B12) 500 MCG Tab PO SCH (09:34)
[2020-09-18] MEDS: Clopidogrel 75 MG Tab PO SCH (09:34)
[2020-09-18] MEDS: SODIUM HYPOCHLORITE 0.25% TOP SCH ×3 (09:35→21:05)
[2020-09-18] MEDS: Insulin Glargine,Human Rec. Analog 100 Units/ML 3 ML Pen SUBCUT SCH ×2 (09:37→21:31)
[2020-09-18] MEDS: SALONPAS TOP SCH ×2 (09:39→21:34)
[2020-09-18] MEDS: Sodium Chloride 0.9% 100 ML IV SCH (17:04)
[2020-09-18] MEDS: Levofloxacin/Dextrose 5%-Water 500 MG in Premix Bag 1 BAG IV SCH (17:04)
[2020-09-18] MEDS: Sodium Chloride 0.9% 10 ML Syringe FLUSH PRN (17:06)
[2020-09-18] MEDS: Levofloxacin/Dextrose 5%-Water 250 MG in Premix Bag 1 BAG IV SCH (18:14)
[2020-09-18] MEDS: Magnesium Oxide 500 MG Tab PO SCH (21:03)
[2020-09-18] MEDS: Donepezil 10 MG Tab PO SCH (21:03)
[2020-09-18] MEDS: Pravastatin 20 MG Tab PO SCH (21:03)
[2020-09-18] MEDS: Famotidine 20 MG Tab PO SCH (21:03)
[2020-09-18] MEDS: Tacrolimus 0.5 MG Cap PO SCH (21:03)
[2020-09-18] MEDS: Mirtazapine 15 MG Tab PO SCH (21:03)
[2020-09-18] MEDS: Calcitriol 0.25 MCG Cap PO SCH (21:04)
[2020-09-19] MEDS: Acetaminophen 325 MG Tab PO SCH ×6 (02:46→21:01)
[2020-09-19] MEDS: Cholecalciferol (Vitamin D3) 25 MCG Tab PO SCH (08:10)
[2020-09-19] MEDS: Clopidogrel 75 MG Tab PO SCH (08:10)
[2020-09-19] MEDS: Cyanocobalamin (Vitamin B12) 500 MCG Tab PO SCH (08:10)
[2020-09-19] MEDS: Docusate Sodium 100 MG Cap PO SCH ×2 (08:12→20:56)
[2020-09-19] MEDS: Tacrolimus 1 MG Cap PO SCH (08:12)
[2020-09-19] MEDS: predniSONE 5 MG Tab PO SCH (08:13)
[2020-09-19] MEDS: Multivitamins with Minerals/Iron/Folic Acid/Lycopene Tab PO SCH (08:13)
[2020-09-19] MEDS: Insulin Aspart 100 Units/ML 3 ML Pen SUBCUT SCH ×7 (08:14→20:59)
[2020-09-19] MEDS: Zinc (Zinc Gluconate) 50 MG Tab PO SCH (08:17)
[2020-09-19] MEDS: Insulin Glargine,Human Rec. Analog 100 Units/ML 3 ML Pen SUBCUT SCH ×2 (08:18→20:58)
[2020-09-19] MEDS: Metoprolol Succinate 50 MG Tab.ER PO SCH (08:21)
[2020-09-19] MEDS: SODIUM HYPOCHLORITE 0.25% TOP SCH ×3 (09:37→20:58)
[2020-09-19] MEDS: SALONPAS TOP SCH ×2 (09:50→21:01)
[2020-09-19 13:36] LABS: ANION GAP 10.9 mmol/L (5-15); CHLORIDE,CL 105 mmol/L (98-107); SODIUM,NA 139 mmol/L (136-145)
[2020-09-19] MEDS: Levofloxacin/Dextrose 5%-Water 500 MG in Premix Bag 1 BAG IV SCH (15:24)
[2020-09-19] MEDS: Sodium Chloride 0.9% 100 ML IV SCH (15:24)
[2020-09-19] MEDS: Levofloxacin/Dextrose 5%-Water 250 MG in Premix Bag 1 BAG IV SCH (16:35)
[2020-09-19] MEDS: Tacrolimus 0.5 MG Cap PO SCH (20:56)
[2020-09-19] MEDS: Pravastatin 20 MG Tab PO SCH (20:57)
[2020-09-19] MEDS: Magnesium Oxide 500 MG Tab PO SCH (20:57)
[2020-09-19] MEDS: Famotidine 20 MG Tab PO SCH (20:57)
[2020-09-19] MEDS: Mirtazapine 15 MG Tab PO SCH (20:57)
[2020-09-19] MEDS: Donepezil 10 MG Tab PO SCH (20:57)
[2020-09-20] MEDS: Acetaminophen 325 MG Tab PO SCH ×6 (04:48→21:49)
[2020-09-20] MEDS: Insulin Aspart 100 Units/ML 3 ML Pen SUBCUT SCH ×7 (07:45→21:57)
[2020-09-20] MEDS: Zinc (Zinc Gluconate) 50 MG Tab PO SCH (08:49)
[2020-09-20] MEDS: Cholecalciferol (Vitamin D3) 25 MCG Tab PO SCH (08:50)
[2020-09-20] MEDS: Clopidogrel 75 MG Tab PO SCH (08:50)
[2020-09-20] MEDS: Tacrolimus 1 MG Cap PO SCH (08:50)
[2020-09-20] MEDS: Multivitamins with Minerals/Iron/Folic Acid/Lycopene Tab PO SCH (08:50)
[2020-09-20] MEDS: predniSONE 5 MG Tab PO SCH (08:50)
[2020-09-20] MEDS: Cyanocobalamin (Vitamin B12) 500 MCG Tab PO SCH (08:50)
[2020-09-20] MEDS: Docusate Sodium 100 MG Cap PO SCH ×2 (08:50→21:48)
[2020-09-20] MEDS: Metoprolol Succinate 50 MG Tab.ER PO SCH (08:54)
[2020-09-20] MEDS: Insulin Glargine,Human Rec. Analog 100 Units/ML 3 ML Pen SUBCUT SCH ×2 (08:55→21:54)
[2020-09-20] MEDS: SODIUM HYPOCHLORITE 0.25% TOP SCH ×2 (08:56→21:54)
[2020-09-20] MEDS: SALONPAS TOP SCH ×2 (09:04→21:58)
--- NOTE | 2020-09-20 10:51 | PCM.PN ---
- General Info Date of Service: 09/20/20 Subjective Update: Mr. Nagel reports being tired today and wanting to "get out of here soon." Had appointment with Dr. Call, podiatry, in [place] 2 days ago. Plans to start larval therapy again later this week. Weight bearing as tolerated encouraged. He endorses no concerns. reports to staff that he has been eating better and getting stronger than when he was at home. Nursing and therapy report that he is requiring encouragement to consistently participate with therapy. - Patient Data Vitals - Most Recent: Last Vital Signs Temp 36.1 C 09/20/20 09:00 Pulse 78 09/20/20 09:00 Resp 16 09/20/20 09:00 BP 155/51 H 09/20/20 09:00 Pulse Ox 97 09/20/20 09:00 Weight - Most Recent: 67.132 kg I&O - Last 24 Hours: Intake & Output 09/19/20 09/20/20 09/20/20 22:59 06:59 14:59 Intake Total 500 0 Output Total 300 350 Balance 200 -350 Lab Results Last 24 Hours: Laboratory Results - last 24 hr 09/19/20 09/19/20 09/19/20 Range/Units 11:56 13:00 13:00 WBC 4.62 L (5.00-10.00) 10^3/uL RBC 2.48 L (4.50-6.00) 10^6/uL Hgb 8.1 L (13.0-17.0) g/dL Hct 26.4 L (40.0-52.0) % MCV 106.5 H (82.0-92.0) fL MCH 32.7 H (27.0-31.0) pg MCHC 30.7 L (32.0-36.0) g/dL RDW 15.7 H (11.5-14.5) % Plt Count 208 (150-400) 10^3/uL MPV 9.7 (7.4-10.4) fL Immature Gran % (Auto) 0.0 (0.0-5.0) % Neut % (Auto) 53.4 (50.0-70.0) % Lymph % (Auto) 37.9 (20.0-40.0) % [place] % (Auto) 7.6 (2.0-8.0) % Eos % (Auto) 0.9 L (1.0-3.0) % Baso % (Auto) 0.2 (0.0-1.0) % Neut # (Auto) 2.47 L (2.50-7.00) 10^3/uL Lymph # (Auto) 1.75 (1.00-4.00) 10^3/uL [place] # (Auto) 0.35 (0.10-0.80) 10^3/uL Eos # (Auto) 0.04 L (0.10-0.30) 10^3/uL Baso # (Auto) 0.01 (0.00-0.10) 10^3/uL Immature Gran # (Auto) 0.00 (0.00-0.50) 10^3/uL Sodium 139 (136-145) mmol/L Potassium 4.7 (3.5-5.1) mmol/L Chloride 105 (98-107) mmol/L Carbon Dioxide 27.8 (21.0-32.0) mmol/L Anion Gap 10.9 (5-15) mmol/L BUN 18 (7-18) mg/dL Creatinine 0.87 (0.51-1.17) mg/dL Est Cr Clr Drug Dosing 63.23 mL/min Estimated GFR (MDRD) > 60 mL/min Glucose 218 H (70-140) mg/dL POC Glucose 173 H (70-140) mg/dL Calcium 8.3 L (8.7-10.3) mg/dL Specimen Type Urine Color (YELLOW) Urine Appearance (CLEAR) Urine pH (5.0-9.0) Ur Specific [place] (1.005-1.030) Urine Protein (NEGATIVE) mg/dL Urine Glucose (UA) (NEGATIVE) mg/dL Urine Ketones (NEGATIVE) mg/dL Urine Occult Blood (NEGATIVE) Urine Nitrite (NEGATIVE) Urine Bilirubin (NEGATIVE) Urine Urobilinogen (0.2-1.0) E.U./dL Ur Leukocyte Esterase (NEGATIVE) Urine RBC (0-5) /HPF Urine WBC (0-5) /HPF Ur Epithelial Cells /LPF Urine Bacteria (NONE TO FEW) /HPF 09/19/20 Range/Units 17:00 WBC (5.00-10.00) 10^3/uL RBC (4.50-6.00) 10^6/uL Hgb (13.0-17.0) g/dL Hct (40.0-52.0) % MCV (82.0-92.0) fL MCH (27.0-31.0) pg MCHC (32.0-36.0) g/dL RDW (11.5-14.5) % Plt Count (150-400) 10^3/uL MPV (7.4-10.4) fL Immature Gran % (Auto) (0.0-5.0) % Neut % (Auto) (50.0-70.0) % Lymph % (Auto) (20.0-40.0) % [place] % (Auto) (2.0-8.0) % Eos % (Auto) (1.0-3.0) % Baso % (Auto) (0.0-1.0) % Neut # (Auto) (2.50-7.00) 10^3/uL Lymph # (Auto) (1.00-4.00) 10^3/uL [place] # (Auto) (0.10-0.80) 10^3/uL Eos # (Auto) (0.10-0.30) 10^3/uL Baso # (Auto) (0.00-0.10) 10^3/uL Immature Gran # (Auto) (0.00-0.50) 10^3/uL Sodium (136-145) mmol/L Potassium (3.5-5.1) mmol/L Chloride (98-107) mmol/L Carbon Dioxide (21.0-32.0) mmol/L Anion Gap (5-15) mmol/L BUN (7-18) mg/dL Creatinine (0.51-1.17) mg/dL Est Cr Clr Drug Dosing mL/min Estimated GFR (MDRD) mL/min Glucose (70-140) mg/dL POC Glucose (70-140) mg/dL Calcium (8.7-10.3) mg/dL Specimen Type Urinvoid Urine Color Yellow (YELLOW) Urine Appearance Clear (CLEAR) Urine pH 7.0 (5.0-9.0) Ur Specific [place] 1.020 (1.005-1.030) Urine Protein Negative (NEGATIVE) mg/dL Urine Glucose (UA) Negative (NEGATIVE) mg/dL Urine Ketones Negative (NEGATIVE) mg/dL Urine Occult Blood Negative (NEGATIVE) Urine Nitrite Negative (NEGATIVE) Urine Bilirubin Negative (NEGATIVE) Urine Urobilinogen 0.2 (0.2-1.0) E.U./dL Ur Leukocyte Esterase Negative (NEGATIVE) Urine RBC 0-5 (0-5) /HPF Urine WBC 0-5 (0-5) /HPF Ur Epithelial Cells Rare /LPF Urine Bacteria Few (NONE TO FEW) /HPF Med Orders - Current: Current Medications Acetaminophen (Acetaminophen 325 Mg Tab) 650 mg PO Q4H [facility] Last Admin: 09/20/20 09:06 Dose: 650 mg Documented by: Bisacodyl (Bisacodyl 10 Mg Supp) 10 mg RECTAL ONETIME PRN PRN Reason: Constipation Last Admin: 09/08/20 14:15 Dose: 10 mg Documented by: Calcitriol (Calcitriol 0.25 Mcg Cap) 0.25 mcg PO MOWEFR [facility] Last Admin: 09/18/20 21:04 Dose: 0.25 mcg Documented by: Cholecalciferol (Cholecalciferol (Vitamin D3) 25 Mcg Tab) 50 mcg PO DAILY [facility] Last Admin: 09/20/20 08:50 Dose: 50 mcg Documented by: Clopidogrel Bisulfate (Clopidogrel 75 Mg Tab) 75 mg PO QAM [facility] Last Admin: 09/20/20 08:50 Dose: 75 mg Documented by: Cyanocobalamin (Cyanocobalamin (Vitamin B12) 500 Mcg Tab) 500 mcg PO DAILY [facility] Last Admin: 09/20/20 08:50 Dose: 500 mcg Documented by: Dextrose/Water (50% Dextrose In Water 50 Ml Syringe) 50 ml IV ASDIRECTED PRN PRN Reason: Hypoglycemia Diclofenac Sodium (Diclofenac Sodium 1% Gel 100 Gm Tube) 2 gm TOP QID PRN PRN Reason: Pain Last Admin: 09/11/20 20:56 Dose: 1 applic Documented by: Docusate Sodium (Docusate Sodium 100 Mg Cap) 100 mg PO BID [facility] Last Admin: 09/20/20 08:50 Dose: 100 mg Documented by: Donepezil HCl (Donepezil 10 Mg Tab) 10 mg PO BEDTIME [facility] Last Admin: 09/19/20 20:57 Dose: 10 mg Documented by: Famotidine (Famotidine 20 Mg Tab) 20 mg PO BEDTIME [facility] Last Admin: 09/19/20 20:57 Dose: 20 mg Documented by: Glucagon (Glucagon,Human Recombinant 1 Mg Vial) 1 mg IM ASDIRECTED PRN PRN Reason: Hypoglycemia Sodium Chloride (Normal Saline) 100 mls @ 100 mls/hr IV ASDIRECTED [facility] Last Admin: 09/19/20 15:24 Dose: 100 mls/hr Documented by: Levofloxacin/Dextrose 250 mg/ (Premix) 50 mls @ 100 mls/hr IV Q24H [facility] Stop: 09/25/20 17:01 Last Admin: 09/19/20 16:35 Dose: 100 mls/hr Documented by: Levofloxacin/Dextrose 500 mg/ (Premix) 100 mls @ 100 mls/hr IV Q24H [facility] Stop: 09/25/20 23:59 Last Admin: 09/19/20 15:24 Dose: 100 mls/hr Documented by: Insulin Aspart (Insulin Aspart 100 Units/Ml 3 Ml Pen) 0 unit SUBCUT WITHMEALSANDBED [facility]; Protocol Last Admin: 09/20/20 07:45 Dose: Not Given Documented by: Insulin Aspart (Insulin Aspart 100 Units/Ml 3 Ml Pen) 6 unit SUBCUT TIDMEALS [facility] Last Admin: 09/20/20 08:48 Dose: 6 unit Documented by: Insulin Glargine (Insulin Glargine,Human Rec. Analog 100 Units/Ml 3 Ml Pen) 12 units SUBCUT BID [facility] Last Admin: 09/20/20 08:55 Dose: 12 units Documented by: Magnesium Oxide (Magnesium Oxide 500 Mg Tab) 500 mg PO BEDTIME [facility] Last Admin: 09/19/20 20:57 Dose: 500 mg Documented by: Metoprolol Succinate (Metoprolol Succinate 50 Mg Tab.Er) 50 mg PO QAM [facility] Last Admin: 09/20/20 08:54 Dose: 50 mg Documented by: Mirtazapine (Mirtazapine 15 Mg Tab) 15 mg PO BEDTIME [facility] Last Admin: 09/19/20 20:57 Dose: 15 mg Documented by: Multivitamins/Minerals (Multivitamins With Minerals/Iron/Folic Acid/Lycopene Tab) 1 tab PO DAILY [facility] Last Admin: 09/20/20 08:50 Dose: 1 tab Documented by: Mycophenolate Mofetil (Mycophenolate Mofetil 500 Mg Tab) 1,000 mg PO BID@1000,2200 [facility] Last Admin: 09/20/20 09:06 Dose: 1,000 mg Documented by: Salonpas Patch( (Menthol,Camphor)) 1 each TOP Q12H [facility] Last Admin: 09/20/20 09:04 Dose: 1 each Documented by: Pravastatin Sodium (Pravastatin 20 Mg Tab) 20 mg PO BEDTIME [facility] Last Admin: 09/19/20 20:57 Dose: 20 mg Documented by: Prednisone (Prednisone 5 Mg Tab) 5 mg PO QAM [facility] Last Admin: 09/20/20 08:50 Dose: 5 mg Documented by: Senna/Docusate Sodium (Docusate Sodium/Sennosides 50-8.6 Mg Tab) 1 tab PO DAILY PRN PRN Reason: Constipation Sodium Chloride (Sodium Chloride 0.9% 10 Ml Syringe) 10 ml FLUSH Q8HR PRN PRN Reason: IV Use Last Admin: 09/18/20 17:06 Dose: 10 ml Documented by: Sodium Hypochlorite (Sodium Hypochlorite 0.25% Top Soln 473 Ml Bot) 1 ml TOP BID [facility] Last Admin: 09/20/20 08:56 Dose: 1 applic Documented by: Tacrolimus (Tacrolimus 1 Mg Cap) 1 mg PO QAM [facility] Last Admin: 09/20/20 08:50 Dose: 1 mg Documented by: Tacrolimus (Tacrolimus 0.5 Mg Cap) 0.5 mg PO BEDTIME [facility] Last Admin: 09/19/20 20:56 Dose: 0.5 mg Documented by: Zinc Gluconate (Zinc (Zinc Gluconate) 50 Mg Tab) 50 mg PO DAILY [facility] Last Admin: 09/20/20 08:49 Dose: 50 mg Documented by: Discontinued Medications Acetaminophen (Acetaminophen 650 Mg Tab.Er) 650 mg PO Q8H PRN PRN Reason: Pain Last Admin: 09/09/20 09:42 Dose: 650 mg Documented by: Acetaminophen (Acetaminophen 325 Mg Tab) 650 mg PO Q6H PRN PRN Reason: Pain Last Admin: 09/16/20 06:10 Dose: 650 mg Documented by: Ceftriaxone Sodium (Ceftriaxone 1 Gm Vial) 1 gm IVPUSH Q24H [facility] Last Admin: 09/11/20 18:52 Dose: Not Given Documented by: Dextrose/Water (50% Dextrose In Water 50 Ml Syringe) 50 ml IV ASDIRECTED PRN PRN Reason: Hypoglycemia Docusate Sodium (Docusate Sodium 100 Mg Cap) 100 mg PO BEDTIME [facility] Erythromycin (Erythromycin Base 0.5% Ophth Oint 3.5 Gm Tube) 1 gm EYEBOTH TID [facility] Last Admin: 09/15/20 08:40 Dose: Not Given Documented by: Glucagon (Glucagon,Human Recombinant 1 Mg Vial) 1 mg IM ASDIRECTED PRN PRN Reason: Hypoglycemia Vancomycin HCl 1 gm/ Sodium (Chloride) 250 mls @ 150 mls/hr IV 1000,2200 [facility] Last Admin: 09/11/20 06:19 Dose: Not Given Documented by: Ciprofloxacin/Dextrose 400 mg/ (Premix) 200 mls @ 200 mls/hr IV Q8H [facility] Last Admin: 09/14/20 07:55 Dose: 200 mls/hr Documented by: Insulin Aspart (Insulin Aspart 100 Units/Ml 3 Ml Pen) 0 unit SUBCUT WITHMEALSANDBED [facility]; Protocol Last Admin: 09/10/20 12:09 Dose: 6 units Documented by: Insulin Aspart (Insulin Aspart 100 Units/Ml 3 Ml Pen) 12 unit SUBCUT ONETIME ONE Stop: 09/12/20 16:39 Last Admin: 09/12/20 17:02 Dose: 12 units Documented by: Insulin Aspart (Insulin Aspart 100 Units/Ml 3 Ml Pen) 10 unit SUBCUT ONETIME ONE Stop: 09/12/20 17:59 Last Admin: 09/12/20 18:18 Dose: 10 unit Documented by: Insulin Glargine (Insulin Glargine,Human Rec. Analog 100 Units/Ml 3 Ml Pen) 8 units SUBCUT BID [facility] Last Admin: 09/11/20 21:00 Dose: 8 unit Documented by: Insulin Glargine (Insulin Glargine,Human Rec. Analog 100 Units/Ml 3 Ml Pen) 10 units SUBCUT BID [facility] Last Admin: 09/13/20 08:01 Dose: 10 units Documented by: Insulin Glargine (Insulin Glargine,Human Rec. Analog 100 Units/Ml 3 Ml Pen) 12 units SUBCUT BEDTIME ONE Stop: 09/12/20 22:01 Last Admin: 09/12/20 22:19 Dose: 12 units Documented by: Mycophenolate 500mg (Tab - Ptom) 2 each PO BID@1000,2200 [facility] Last Admin: 09/14/20 09:49 Dose: 2 each Documented by: Tacrolimus 0.5mg Cap (- Ptom) 1 each PO BEDTIME [facility] Last Admin: 09/13/20 21:06 Dose: 1 each Documented by: Pravastatin 20mg Tab (- Ptom) 1 each PO BEDTIME [facility] Last Admin: 09/13/20 21:07 Dose: 1 each Documented by: Tacrolimus 1mg Cap - (Ptom) 1 each PO QAM [facility] Last Admin: 09/14/20 08:01 Dose: 1 each Documented by: Sodium Hypochlorite (Sodium Hypochlorite 0.25% Top Soln 473 Ml Bot) 1 ml TOP TID [facility] Last Admin: 09/19/20 09:37 Dose: Not Given Documented by: Tramadol HCl (Tramadol 50 Mg Tab) 50 mg PO Q6H PRN PRN Reason: Pain Last Admin: 09/15/20 11:57 Dose: 50 mg Documented by: - Exam Physical Findings Comments:: GENERAL: Thin, chronically ill appearing elderly white male sitting in hospital bed in no acute distress. HEENT: Normocephalic, atraumatic. Conjunctiva clear. Nares patent without discharge. Mucous membranes moist. NECK: Supple, no masses. CV: Regular rate and rhythm, 2/6 systolic murmur at base without radiation, no rubs or gallops. 2+ radial pulses. PULMONARY: Normal effort, clear to auscultation bilaterally, no wheezes, rales, or rhonchi. ABDOMEN: Positive bowel sounds, soft, nontender, nondistended. EXTREMITIES: No edema, cyanosis, or clubbing. MUSCULOSKELETAL: Moves all extremities well. NEUROLOGICAL: No obvious deficits. DERMATOLOGIC: Diffuse ecchymoses. Multiple healed scars, including of R ear and R forearm. Dressing in place on R heel. PSYCHIATRIC: Alert, interactive, appropriate affect, mild confusion. - Patient Data Lab Results Last 24 hrs: Laboratory Results - last 24 hr 09/19/20 09/19/20 09/19/20 Range/Units 11:56 13:00 13:00 WBC 4.62 L (5.00-10.00) 10^3/uL RBC 2.48 L (4.50-6.00) 10^6/uL Hgb 8.1 L (13.0-17.0) g/dL Hct 26.4 L (40.0-52.0) % MCV 106.5 H (82.0-92.0) fL MCH 32.7 H (27.0-31.0) pg MCHC 30.7 L (32.0-36.0) g/dL RDW 15.7 H (11.5-14.5) % Plt Count 208 (150-400) 10^3/uL MPV 9.7 (7.4-10.4) fL Immature Gran % (Auto) 0.0 (0.0-5.0) % Neut % (Auto) 53.4 (50.0-70.0) % Lymph % (Auto) 37.9 (20.0-40.0) % [place] % (Auto) 7.6 (2.0-8.0) % Eos % (Auto) 0.9 L (1.0-3.0) % Baso % (Auto) 0.2 (0.0-1.0) % Neut # (Auto) 2.47 L (2.50-7.00) 10^3/uL Lymph # (Auto) 1.75 (1.00-4.00) 10^3/uL [place] # (Auto) 0.35 (0.10-0.80) 10^3/uL Eos # (Auto) 0.04 L (0.10-0.30) 10^3/uL Baso # (Auto) 0.01 (0.00-0.10) 10^3/uL Immature Gran # (Auto) 0.00 (0.00-0.50) 10^3/uL Sodium 139 (136-145) mmol/L Potassium 4.7 (3.5-5.1) mmol/L Chloride 105 (98-107) mmol/L Carbon Dioxide 27.8 (21.0-32.0) mmol/L Anion Gap 10.9 (5-15) mmol/L BUN 18 (7-18) mg/dL Creatinine 0.87 (0.51-1.17) mg/dL Est Cr Clr Drug Dosing 63.23 mL/min Estimated GFR (MDRD) > 60 mL/min Glucose 218 H (70-140) mg/dL POC Glucose 173 H (70-140) mg/dL Calcium 8.3 L (8.7-10.3) mg/dL Specimen Type Urine Color (YELLOW) Urine Appearance (CLEAR) Urine pH (5.0-9.0) Ur Specific [place] (1.005-1.030) Urine Protein (NEGATIVE) mg/dL Urine Glucose (UA) (NEGATIVE) mg/dL Urine Ketones (NEGATIVE) mg/dL Urine Occult Blood (NEGATIVE) Urine Nitrite (NEGATIVE) Urine Bilirubin (NEGATIVE) Urine Urobilinogen (0.2-1.0) E.U./dL Ur Leukocyte Esterase (NEGATIVE) Urine RBC (0-5) /HPF Urine WBC (0-5) /HPF Ur Epithelial Cells /LPF Urine Bacteria (NONE TO FEW) /HPF 09/19/20 Range/Units 17:00 WBC (5.00-10.00) 10^3/uL RBC (4.50-6.00) 10^6/uL Hgb (13.0-17.0) g/dL Hct (40.0-52.0) % MCV (82.0-92.0) fL MCH (27.0-31.0) pg MCHC (32.0-36.0) g/dL RDW (11.5-14.5) % Plt Count (150-400) 10^3/uL MPV (7.4-10.4) fL Immature Gran % (Auto) (0.0-5.0) % Neut % (Auto) (50.0-70.0) % Lymph % (Auto) (20.0-40.0) % [place] % (Auto) (2.0-8.0) % Eos % (Auto) (1.0-3.0) % Baso % (Auto) (0.0-1.0) % Neut # (Auto) (2.50-7.00) 10^3/uL Lymph # (Auto) (1.00-4.00) 10^3/uL [place] # (Auto) (0.10-0.80) 10^3/uL Eos # (Auto) (0.10-0.30) 10^3/uL Baso # (Auto) (0.00-0.10) 10^3/uL Immature Gran # (Auto) (0.00-0.50) 10^3/uL Sodium (136-145) mmol/L Potassium (3.5-5.1) mmol/L Chloride (98-107) mmol/L Carbon Dioxide (21.0-32.0) mmol/L Anion Gap (5-15) mmol/L BUN (7-18) mg/dL Creatinine (0.51-1.17) mg/dL Est Cr Clr Drug Dosing mL/min Estimated GFR (MDRD) mL/min Glucose (70-140) mg/dL POC Glucose (70-140) mg/dL Calcium (8.7-10.3) mg/dL Specimen Type Urinvoid Urine Color Yellow (YELLOW) Urine Appearance Clear (CLEAR) Urine pH 7.0 (5.0-9.0) Ur Specific [place] 1.020 (1.005-1.030) Urine Protein Negative (NEGATIVE) mg/dL Urine Glucose (UA) Negative (NEGATIVE) mg/dL Urine Ketones Negative (NEGATIVE) mg/dL Urine Occult Blood Negative (NEGATIVE) Urine Nitrite Negative (NEGATIVE) Urine Bilirubin Negative (NEGATIVE) Urine Urobilinogen 0.2 (0.2-1.0) E.U./dL Ur Leukocyte Esterase Negative (NEGATIVE) Urine RBC 0-5 (0-5) /HPF Urine WBC 0-5 (0-5) /HPF Ur Epithelial Cells Rare /LPF Urine Bacteria Few (NONE TO FEW) /HPF Result Diagrams: 09/19/20 13:00 09/19/20 13:00 Sepsis Event Note - Evaluation Sepsis Screening Result: No Definite Risk - Focused Exam Vital Signs: Vital Signs Temp Pulse Pulse Resp BP BP Pulse Ox 09/20/20 09:00 36.1 C 78 16 155/51 H 97 09/20/20 08:54 78 155/51 H - Problem List Review Problem List Initiated/Reviewed/Updated: Yes - Plan Plan:: HPI summary/Acute hospitalization course: 80yoM with a history notable for CKD s/p renal transplant (2012), DMT2, and PAD, with a right heel ulcer present since mid-June who was admitted to inpatient status via the ED on 09/05/20 for suspected sepsis after presenting with tachypnea, hypotension, increased confusion, and elevated lactate (2.4) for which source was presumed to be right heel ulcer. Initial qSOFA 06/04. He was started on IVF and IV vancomycin and had debridement and bone biopsy performed on 09/06/[address] Rosalinda Fajardo. Lactate normalized upon recheck. Blood cultures without growth. PICC line placed on 09/07/20. He had clinical improvement and given need for intensive wound care and ongoing IV antibiotic therapy as well as physical rehabilitation in the setting of profound deconditioning/debility, he was admitted to swing bed status. Pertinent recent wound care history: 07/04/20: Initial evaluation for wound. Debridement performed. Started ciprofloxacin/TMP-SMX for 5 days. 07/18/20: Referral to podiatry/wound care. Started doxycycline for 21 days. 08/01/20: Angioplasty to R superficial femoral, tibioperoneal, peroneal, and anterior tibial arteries. 08/23/20: Medi-honey gel and ABD to wound left in place x2 days. Instructed to offload heel entirely, float heel when in bed or recliner, and use toe touch weight bearing to the right foot with [employer] shoe if must ambulate. 08/25/20: First larval dose applied. 08/28/20: Second larval dose applied. Prior authorization for wound vac placed, with plan to consider once wound base better optimized. 08/30/20: Third larval dose applied. 09/01/20: Fourth larval dose applied. Scheduled podiatry re-evaluation for consideration for negative pressure therapy, biologics (Grafix vs [place]?), and calcanectomy. 09/04/20: Started Dakins 0.125% WTD dressings. 09/05/20: Admitted to [facility] for possible sepsis due to foot infection. Started on vancomycin IV. 09/06/20: Was scheduled to see vascular surgery, podiatry, and wound care at [facility] to discuss plan of care, but was admitted the evening prior to [facility]. Debridement and bone biopsy under anesthesia performed by Rosalinda Fajardo MD. Wound culture grew E. coli, P. aeruginosa, enterococcus, and S. marcescens; pansensitive to fluoroquinolones. Bone biopsy revealed no evidence of osteomyelitis. 09/11/20: Antibiotic regimen changed from vancomycin to ciprofloxacin IV. 09/14/20: Wound culture revealed S. maltophilia sensitive to levofloxacin and TMP-SMX. Antibiotic regimen changed from ciprofloxacin to levofloxacin IV. 09/18/20: Saw Dr. Call, podiatry at [facility]. Plans to start larval therapy again on 09/21/20. Weight bearing as tolerated encouraged. 09/20/20: Antibiotics discontinued after coordination with podiatry and wound care. Hospitalization problems and plan: # Right heel ulcer, full thickness - Continue wound orders per Dr. Call, podiatry at [facility], and SAMMY Connell, wound care at [facility]; currently Dakin's wet -to-dry dressing changes BID, planning to have larvae placed on 09/21/20, and planning to have possible wound vac placed the week of 09/25/20 - Had a detailed correspondence with Dr. Call and LINDA-JAIR Connell, who all agreed to discontinue antibiotics given no evidence of infection requiring antibiotics and having received 14 days of antibiotic therapy for which prior cultures revealed sensitivity # Deconditioning/debility - Physical therapy, for which participation was highly encouraged to patient in order to make progress with strengthening # Generalized pain - Continue Tylenol, SalanPas, and diclofenac gel prn # DMT2: 08/01/20 A1c 7.6. Longstanding labile blood glucose with intermittent hypoglycemia. Prior discrepancy between bedside glucometer and patient's Sandra. - Continue Lantus (at home on Levemir) 12un BID and NovoLog 6 units TID in addition to moderate dose sliding scale # Anemia of chronic kidney disease and vitamin B12 deficiency:Decreased from baseline during acute hospitalization. B12 repleted, folate normal, and iron panel without iron deficiency. - Recheck CBC 09/25/20 - Continue B12 500mcg daily Resolved hospitalization problems: # Possible osteomyelitis, ruled out # History of sepsis, resolved # Bacterial conjunctivitis, resolved Chronic, stable conditions: # Hx TIA / CAD s/p CABG / PAD s/p RLE angioplasty 08/01/20 / HLD: Continue clopidogrel 75mg daily, metoprolol succinate 50mg daily, pravastatin 20mg. # Aortic stenosis: 05/19/20 echo with mild aortic stenosis. # Diastolic dysfunction: 05/19/20 echo with grade 1 diastolic dysfunction. Stable fluid status. No diuretics at baseline. # GERD: Controlled. Continue [id number]. # Constipation: Stable. Continue docusate 100mg BID, Senna-docusate daily prn, bisacodyl prn. # S/p cadaveric renal transplant (2012) / History of BK viremia: 09/13/20 tacrolimus level 4.2. Continue tacrolimus 1/0.5mg BID, mycophenolate 1000mg BID, prednisone 5mg daily. Managed by nephrology Dr. Hall last app06/16/20. # Hypomagnesemia: 08/02/20 Mg 1.9. Continue magnesium oxide 500mg daily. # Osteopenia: Last Dexa Date 07/09/2016. Continue alendronate weekly, calcitriol 0.25mcg MWF, vitamin D 50mcg daily. # Protein-calorie malnutrition / Weight loss: Stable recently. Continue MV daily, zinc 50mg daily. Improvement since prior initiation of mirtazapine. Appreciate dietary consult. Monitor weight weekly. # MCI: Stable.Continue donepezil 10mg daily. # Depression / Insomnia: Improved recently. Continue mirtazapine 15mg daily. Monitor closely. # History SCC of R ear, L arm, and R forearm: S/p multiple excisions. Followed by dermatology. Hospitalization details: # FEN: No IVF. Electrolytes normal. Diabetic diet. # PPX: DVT ppx not indicated during swing bed stay. Will hold off on melatonin for delirium ppx given current use of mirtazapine. # Code status: CPR ONLY, DNI. # Emergency contact: , [place]. # Disposition: Continue swing bed status for further management of heel ulcer and deconditioning/debility. Appreciate case management assistance with further care planning.
[2020-09-20] MEDS: Sodium Chloride 0.9% 100 ML IV SCH (15:39)
[2020-09-20] MEDS: Levofloxacin/Dextrose 5%-Water 500 MG in Premix Bag 1 BAG IV SCH (15:39)
[2020-09-20] MEDS: Levofloxacin/Dextrose 5%-Water 250 MG in Premix Bag 1 BAG IV SCH (16:59)
[2020-09-20] MEDS: Pravastatin 20 MG Tab PO SCH (21:46)
[2020-09-20] MEDS: Magnesium Oxide 500 MG Tab PO SCH (21:48)
[2020-09-20] MEDS: Mirtazapine 15 MG Tab PO SCH (21:48)
[2020-09-20] MEDS: Famotidine 20 MG Tab PO SCH (21:48)
[2020-09-20] MEDS: Donepezil 10 MG Tab PO SCH (21:48)
[2020-09-20] MEDS: Tacrolimus 0.5 MG Cap PO SCH (21:49)
[2020-09-20] MEDS: Calcitriol 0.25 MCG Cap PO SCH (21:53)
[2020-09-21] MEDS: Acetaminophen 325 MG Tab PO SCH ×6 (04:21→21:35)
[2020-09-21] MEDS: Insulin Aspart 100 Units/ML 3 ML Pen SUBCUT SCH ×7 (07:43→21:42)
[2020-09-21] MEDS: Metoprolol Succinate 50 MG Tab.ER PO SCH (09:06)
[2020-09-21] MEDS: Cyanocobalamin (Vitamin B12) 500 MCG Tab PO SCH (09:06)
[2020-09-21] MEDS: Clopidogrel 75 MG Tab PO SCH (09:06)
[2020-09-21] MEDS: predniSONE 5 MG Tab PO SCH (09:06)
[2020-09-21] MEDS: Tacrolimus 1 MG Cap PO SCH (09:06)
[2020-09-21] MEDS: Multivitamins with Minerals/Iron/Folic Acid/Lycopene Tab PO SCH (09:07)
[2020-09-21] MEDS: Cholecalciferol (Vitamin D3) 25 MCG Tab PO SCH (09:07)
[2020-09-21] MEDS: Docusate Sodium 100 MG Cap PO SCH ×2 (09:07→20:43)
[2020-09-21] MEDS: Zinc (Zinc Gluconate) 50 MG Tab PO SCH (09:07)
[2020-09-21] MEDS: Insulin Glargine,Human Rec. Analog 100 Units/ML 3 ML Pen SUBCUT SCH ×2 (09:08→21:43)
[2020-09-21] MEDS: Diclofenac Sodium 1% Gel 100 GM Tube TOP PRN (09:12)
[2020-09-21] MEDS: SODIUM HYPOCHLORITE 0.25% TOP SCH ×2 (09:13→21:35)
[2020-09-21] MEDS: SALONPAS TOP SCH ×2 (11:36→21:38)
[2020-09-21] MEDS: Tacrolimus 0.5 MG Cap PO SCH (20:43)
[2020-09-21] MEDS: Pravastatin 20 MG Tab PO SCH (20:43)
[2020-09-21] MEDS: Magnesium Oxide 500 MG Tab PO SCH (20:43)
[2020-09-21] MEDS: Famotidine 20 MG Tab PO SCH (20:43)
[2020-09-21] MEDS: Mirtazapine 15 MG Tab PO SCH (20:43)
[2020-09-21] MEDS: Donepezil 10 MG Tab PO SCH (20:44)
[2020-09-22] MEDS: Acetaminophen 325 MG Tab PO SCH ×6 (03:40→21:31)
[2020-09-22] MEDS: Insulin Aspart 100 Units/ML 3 ML Pen SUBCUT SCH ×7 (07:30→21:38)
[2020-09-22] MEDS: SODIUM HYPOCHLORITE 0.25% TOP SCH ×2 (10:15→20:06)
[2020-09-22] MEDS: predniSONE 5 MG Tab PO SCH (10:15)
[2020-09-22] MEDS: Clopidogrel 75 MG Tab PO SCH (10:16)
[2020-09-22] MEDS: Tacrolimus 1 MG Cap PO SCH (10:16)
[2020-09-22] MEDS: Docusate Sodium 100 MG Cap PO SCH ×2 (10:16→21:32)
[2020-09-22] MEDS: Zinc (Zinc Gluconate) 50 MG Tab PO SCH (10:17)
[2020-09-22] MEDS: Multivitamins with Minerals/Iron/Folic Acid/Lycopene Tab PO SCH (10:18)
[2020-09-22] MEDS: Metoprolol Succinate 50 MG Tab.ER PO SCH (10:18)
[2020-09-22] MEDS: Cholecalciferol (Vitamin D3) 25 MCG Tab PO SCH (10:18)
[2020-09-22] MEDS: Cyanocobalamin (Vitamin B12) 500 MCG Tab PO SCH (10:18)
[2020-09-22] MEDS: SALONPAS TOP SCH ×2 (10:26→21:41)
[2020-09-22] MEDS: Insulin Glargine,Human Rec. Analog 100 Units/ML 3 ML Pen SUBCUT SCH ×2 (10:26→21:35)
[2020-09-22] MEDS: Calcitriol 0.25 MCG Cap PO SCH (20:07)
[2020-09-22] MEDS: Pravastatin 20 MG Tab PO SCH (21:31)
[2020-09-22] MEDS: Tacrolimus 0.5 MG Cap PO SCH (21:31)
[2020-09-22] MEDS: Famotidine 20 MG Tab PO SCH (21:31)
[2020-09-22] MEDS: Mirtazapine 15 MG Tab PO SCH (21:32)
[2020-09-22] MEDS: Donepezil 10 MG Tab PO SCH (21:32)
[2020-09-22] MEDS: Magnesium Oxide 500 MG Tab PO SCH (21:32)
[2020-09-22] MEDS: Sodium Chloride 0.9% 10 ML Syringe FLUSH PRN (22:38)
[2020-09-23] MEDS: Acetaminophen 325 MG Tab PO SCH ×6 (01:01→21:30)
[2020-09-23] MEDS: Acetaminophen/HYDROcodone 325-5 MG Tab PO PRN ×2 (04:32→23:30)
[2020-09-23] MEDS: SODIUM HYPOCHLORITE 0.25% TOP SCH ×2 (08:03→23:10)
[2020-09-23] MEDS ORDERED: Sodium Chloride 0.9% 10 ML Syringe FLUSH SCH (09:00)
[2020-09-23] MEDS: Metoprolol Succinate 50 MG Tab.ER PO SCH (10:07)
[2020-09-23] MEDS: Cyanocobalamin (Vitamin B12) 500 MCG Tab PO SCH (10:08)
[2020-09-23] MEDS: Docusate Sodium 100 MG Cap PO SCH ×2 (10:08→20:14)
[2020-09-23] MEDS: predniSONE 5 MG Tab PO SCH (10:08)
[2020-09-23] MEDS: Tacrolimus 1 MG Cap PO SCH (10:08)
[2020-09-23] MEDS: Zinc (Zinc Gluconate) 50 MG Tab PO SCH (10:08)
[2020-09-23] MEDS: Clopidogrel 75 MG Tab PO SCH (10:09)
[2020-09-23] MEDS: SALONPAS TOP SCH ×2 (10:09→21:29)
[2020-09-23] MEDS: Cholecalciferol (Vitamin D3) 25 MCG Tab PO SCH (10:09)
[2020-09-23] MEDS: Multivitamins with Minerals/Iron/Folic Acid/Lycopene Tab PO SCH (10:09)
[2020-09-23] MEDS: Insulin Aspart 100 Units/ML 3 ML Pen SUBCUT SCH ×7 (10:12→21:32)
[2020-09-23] MEDS: Insulin Glargine,Human Rec. Analog 100 Units/ML 3 ML Pen SUBCUT SCH ×2 (10:13→21:33)
[2020-09-23] MEDS: Famotidine 20 MG Tab PO SCH (20:14)
[2020-09-23] MEDS: Tacrolimus 0.5 MG Cap PO SCH (20:15)
[2020-09-23] MEDS: Donepezil 10 MG Tab PO SCH (20:15)
[2020-09-23] MEDS: Magnesium Oxide 500 MG Tab PO SCH (20:15)
[2020-09-23] MEDS: Pravastatin 20 MG Tab PO SCH (21:28)
[2020-09-23] MEDS: Mirtazapine 15 MG Tab PO SCH (21:31)
[2020-09-24] MEDS: Acetaminophen 325 MG Tab PO SCH ×5 (03:49→21:11)
[2020-09-24] MEDS: Insulin Aspart 100 Units/ML 3 ML Pen SUBCUT SCH ×7 (09:24→21:18)
[2020-09-24] MEDS: Tacrolimus 1 MG Cap PO SCH (09:25)
[2020-09-24] MEDS: Metoprolol Succinate 50 MG Tab.ER PO SCH (09:25)
[2020-09-24] MEDS: predniSONE 5 MG Tab PO SCH (09:26)
[2020-09-24] MEDS: Docusate Sodium 100 MG Cap PO SCH ×2 (09:26→21:11)
[2020-09-24] MEDS: Clopidogrel 75 MG Tab PO SCH (09:28)
[2020-09-24] MEDS: Zinc (Zinc Gluconate) 50 MG Tab PO SCH (09:29)
[2020-09-24] MEDS: Multivitamins with Minerals/Iron/Folic Acid/Lycopene Tab PO SCH (09:29)
[2020-09-24] MEDS: Cyanocobalamin (Vitamin B12) 500 MCG Tab PO SCH (09:29)
[2020-09-24] MEDS: Cholecalciferol (Vitamin D3) 25 MCG Tab PO SCH (09:30)
[2020-09-24] MEDS: SODIUM HYPOCHLORITE 0.25% TOP SCH ×2 (09:32→21:23)
[2020-09-24] MEDS: SALONPAS TOP SCH ×2 (09:33→21:10)
[2020-09-24] MEDS: Insulin Glargine,Human Rec. Analog 100 Units/ML 3 ML Pen SUBCUT SCH ×2 (09:36→21:17)
[2020-09-24] MEDS ORDERED: Acetaminophen 325 MG Tab PO PRN (13:55)
[2020-09-24] MEDS: Tacrolimus 0.5 MG Cap PO SCH (21:11)
[2020-09-24] MEDS: Famotidine 20 MG Tab PO SCH (21:11)
[2020-09-24] MEDS: Magnesium Oxide 500 MG Tab PO SCH (21:11)
[2020-09-24] MEDS: Donepezil 10 MG Tab PO SCH (21:11)
[2020-09-24] MEDS: Mirtazapine 15 MG Tab PO SCH (21:12)
[2020-09-24] MEDS: Pravastatin 20 MG Tab PO SCH (21:13)
[2020-09-24] MEDS: Acetaminophen/HYDROcodone 325-5 MG Tab PO PRN (23:52)
[2020-09-25] MEDS: Insulin Aspart 100 Units/ML 3 ML Pen SUBCUT SCH ×7 (08:10→22:01)
[2020-09-25] MEDS: Tacrolimus 1 MG Cap PO SCH (09:02)
[2020-09-25] MEDS: Metoprolol Succinate 50 MG Tab.ER PO SCH (09:03)
[2020-09-25] MEDS: Cholecalciferol (Vitamin D3) 25 MCG Tab PO SCH (09:03)
[2020-09-25] MEDS: Multivitamins with Minerals/Iron/Folic Acid/Lycopene Tab PO SCH (09:03)
[2020-09-25] MEDS: Acetaminophen 325 MG Tab PO SCH ×3 (09:03→21:52)
[2020-09-25] MEDS: Clopidogrel 75 MG Tab PO SCH (09:03)
[2020-09-25] MEDS: predniSONE 5 MG Tab PO SCH (09:04)
[2020-09-25] MEDS: Docusate Sodium 100 MG Cap PO SCH ×2 (09:04→21:54)
[2020-09-25] MEDS: Zinc (Zinc Gluconate) 50 MG Tab PO SCH (09:04)
[2020-09-25] MEDS: Cyanocobalamin (Vitamin B12) 500 MCG Tab PO SCH (09:04)
[2020-09-25] MEDS: SODIUM HYPOCHLORITE 0.25% TOP SCH ×2 (09:06→22:04)
[2020-09-25] MEDS: Insulin Glargine,Human Rec. Analog 100 Units/ML 3 ML Pen SUBCUT SCH ×2 (09:09→22:00)
[2020-09-25] MEDS: SALONPAS TOP SCH ×2 (10:29→21:57)
[2020-09-25] MEDS: Pravastatin 20 MG Tab PO SCH (21:52)
[2020-09-25] MEDS: Famotidine 20 MG Tab PO SCH (21:53)
[2020-09-25] MEDS: Mirtazapine 15 MG Tab PO SCH (21:53)
[2020-09-25] MEDS: Tacrolimus 0.5 MG Cap PO SCH (21:54)
[2020-09-25] MEDS: Magnesium Oxide 500 MG Tab PO SCH (21:54)
[2020-09-25] MEDS: Calcitriol 0.25 MCG Cap PO SCH (21:54)
[2020-09-25] MEDS: Donepezil 10 MG Tab PO SCH (21:54)
[2020-09-26] MEDS: Insulin Aspart 100 Units/ML 3 ML Pen SUBCUT SCH ×7 (08:12→21:21)
[2020-09-26] MEDS: Cholecalciferol (Vitamin D3) 25 MCG Tab PO SCH (08:15)
[2020-09-26] MEDS: Clopidogrel 75 MG Tab PO SCH (08:15)
[2020-09-26] MEDS: Zinc (Zinc Gluconate) 50 MG Tab PO SCH (08:15)
[2020-09-26] MEDS: Acetaminophen 325 MG Tab PO SCH ×3 (08:16→20:50)
[2020-09-26] MEDS: Tacrolimus 1 MG Cap PO SCH (08:16)
[2020-09-26] MEDS: Cyanocobalamin (Vitamin B12) 500 MCG Tab PO SCH (08:16)
[2020-09-26] MEDS: Multivitamins with Minerals/Iron/Folic Acid/Lycopene Tab PO SCH (08:16)
[2020-09-26] MEDS: Docusate Sodium 100 MG Cap PO SCH ×2 (08:16→20:51)
[2020-09-26] MEDS: predniSONE 5 MG Tab PO SCH (08:16)
[2020-09-26] MEDS: Metoprolol Succinate 50 MG Tab.ER PO SCH (08:21)
[2020-09-26] MEDS: SODIUM HYPOCHLORITE 0.25% TOP SCH ×2 (08:24→22:20)
[2020-09-26] MEDS: Insulin Glargine,Human Rec. Analog 100 Units/ML 3 ML Pen SUBCUT SCH ×2 (08:24→20:51)
[2020-09-26] MEDS: SALONPAS TOP SCH ×2 (10:20→22:14)
[2020-09-26] MEDS: Donepezil 10 MG Tab PO SCH (20:50)
[2020-09-26] MEDS: Magnesium Oxide 500 MG Tab PO SCH (20:50)
[2020-09-26] MEDS: Tacrolimus 0.5 MG Cap PO SCH (20:50)
[2020-09-26] MEDS: Famotidine 20 MG Tab PO SCH (20:50)
[2020-09-26] MEDS: Pravastatin 20 MG Tab PO SCH (20:50)
[2020-09-26] MEDS: Mirtazapine 15 MG Tab PO SCH (20:51)
[2020-09-27] MEDS: Insulin Glargine,Human Rec. Analog 100 Units/ML 3 ML Pen SUBCUT SCH ×2 (08:03→20:42)
[2020-09-27] MEDS: Insulin Aspart 100 Units/ML 3 ML Pen SUBCUT SCH ×7 (08:04→21:42)
[2020-09-27] MEDS: Cholecalciferol (Vitamin D3) 25 MCG Tab PO SCH (08:08)
[2020-09-27] MEDS: Multivitamins with Minerals/Iron/Folic Acid/Lycopene Tab PO SCH (08:09)
[2020-09-27] MEDS: Tacrolimus 1 MG Cap PO SCH (08:09)
[2020-09-27] MEDS: Zinc (Zinc Gluconate) 50 MG Tab PO SCH (08:09)
[2020-09-27] MEDS: Docusate Sodium 100 MG Cap PO SCH ×2 (08:09→20:41)
[2020-09-27] MEDS: Metoprolol Succinate 50 MG Tab.ER PO SCH (08:09)
[2020-09-27] MEDS: Acetaminophen 325 MG Tab PO SCH ×3 (08:10→21:42)
[2020-09-27] MEDS: Clopidogrel 75 MG Tab PO SCH (08:11)
[2020-09-27] MEDS: predniSONE 5 MG Tab PO SCH (08:11)
[2020-09-27] MEDS: Cyanocobalamin (Vitamin B12) 500 MCG Tab PO SCH (08:12)
[2020-09-27] MEDS: SODIUM HYPOCHLORITE 0.25% TOP SCH (08:12)
[2020-09-27] MEDS: SALONPAS TOP SCH ×2 (09:26→21:44)
[2020-09-27] MEDS: Polyethylene Glycol 3350 Powder 17 GM Packet PO SCH (17:55)
[2020-09-27] MEDS: Calcitriol 0.25 MCG Cap PO SCH (20:40)
[2020-09-27] MEDS: Pravastatin 20 MG Tab PO SCH (20:41)
[2020-09-27] MEDS: Famotidine 20 MG Tab PO SCH (20:41)
[2020-09-27] MEDS: Donepezil 10 MG Tab PO SCH (20:41)
[2020-09-27] MEDS: Tacrolimus 0.5 MG Cap PO SCH (20:42)
[2020-09-27] MEDS: Magnesium Oxide 500 MG Tab PO SCH (20:42)
[2020-09-27] MEDS: Mirtazapine 15 MG Tab PO SCH (21:43)
[2020-09-28] MEDS: Zinc (Zinc Gluconate) 50 MG Tab PO SCH (08:09)
[2020-09-28] MEDS: Metoprolol Succinate 50 MG Tab.ER PO SCH (08:09)
[2020-09-28] MEDS: Acetaminophen 325 MG Tab PO SCH ×3 (08:09→21:49)
[2020-09-28] MEDS: Cyanocobalamin (Vitamin B12) 500 MCG Tab PO SCH (08:09)
[2020-09-28] MEDS: Cholecalciferol (Vitamin D3) 25 MCG Tab PO SCH (08:09)
[2020-09-28] MEDS: Tacrolimus 1 MG Cap PO SCH (08:10)
[2020-09-28] MEDS: Polyethylene Glycol 3350 Powder 17 GM Packet PO SCH (08:10)
[2020-09-28] MEDS: Clopidogrel 75 MG Tab PO SCH (08:10)
[2020-09-28] MEDS: Insulin Glargine,Human Rec. Analog 100 Units/ML 3 ML Pen SUBCUT SCH ×2 (08:10→20:32)
[2020-09-28] MEDS: predniSONE 5 MG Tab PO SCH (08:10)
[2020-09-28] MEDS: Insulin Aspart 100 Units/ML 3 ML Pen SUBCUT SCH ×7 (08:12→21:50)
[2020-09-28] MEDS: Multivitamins with Minerals/Iron/Folic Acid/Lycopene Tab PO SCH (08:12)
[2020-09-28] MEDS: Docusate Sodium 100 MG Cap PO SCH ×2 (08:12→20:34)
[2020-09-28] MEDS ORDERED: Polyethylene Glycol 3350 Powder 17 GM Packet PO SCH (09:00)
[2020-09-28] MEDS: SALONPAS TOP SCH ×2 (10:32→21:51)
[2020-09-28] MEDS: Tacrolimus 0.5 MG Cap PO SCH (20:33)
[2020-09-28] MEDS: Famotidine 20 MG Tab PO SCH (20:33)
[2020-09-28] MEDS: Pravastatin 20 MG Tab PO SCH (20:33)
[2020-09-28] MEDS: Magnesium Oxide 500 MG Tab PO SCH (20:34)
[2020-09-28] MEDS: Donepezil 10 MG Tab PO SCH (20:34)
[2020-09-28] MEDS: Mirtazapine 15 MG Tab PO SCH (21:49)
[2020-09-29] MEDS: Insulin Aspart 100 Units/ML 3 ML Pen SUBCUT SCH ×7 (07:48→23:30)
[2020-09-29] MEDS: Metoprolol Succinate 50 MG Tab.ER PO SCH (09:24)
[2020-09-29] MEDS: Clopidogrel 75 MG Tab PO SCH (09:24)
[2020-09-29] MEDS: Cholecalciferol (Vitamin D3) 25 MCG Tab PO SCH (09:24)
[2020-09-29] MEDS: Zinc (Zinc Gluconate) 50 MG Tab PO SCH (09:25)
[2020-09-29] MEDS: Docusate Sodium 100 MG Cap PO SCH ×2 (09:25→23:26)
[2020-09-29] MEDS: Acetaminophen 325 MG Tab PO SCH ×3 (09:25→23:27)
[2020-09-29] MEDS: Multivitamins with Minerals/Iron/Folic Acid/Lycopene Tab PO SCH (09:25)
[2020-09-29] MEDS: Tacrolimus 1 MG Cap PO SCH (09:25)
[2020-09-29] MEDS: Polyethylene Glycol 3350 Powder 17 GM Packet PO SCH (09:25)
[2020-09-29] MEDS: predniSONE 5 MG Tab PO SCH (09:25)
[2020-09-29] MEDS: Cyanocobalamin (Vitamin B12) 500 MCG Tab PO SCH (09:25)
[2020-09-29] MEDS: Insulin Glargine,Human Rec. Analog 100 Units/ML 3 ML Pen SUBCUT SCH ×2 (09:33→23:29)
[2020-09-29] MEDS: SALONPAS TOP SCH ×2 (12:01→23:29)
[2020-09-29] MEDS: Calcitriol 0.25 MCG Cap PO SCH (23:25)
[2020-09-29] MEDS: Pravastatin 20 MG Tab PO SCH (23:25)
[2020-09-29] MEDS: Mirtazapine 15 MG Tab PO SCH (23:25)
[2020-09-29] MEDS: Magnesium Oxide 500 MG Tab PO SCH (23:25)
[2020-09-29] MEDS: Tacrolimus 0.5 MG Cap PO SCH (23:26)
[2020-09-29] MEDS: Donepezil 10 MG Tab PO SCH (23:26)
[2020-09-29] MEDS: Famotidine 20 MG Tab PO SCH (23:26)
[2020-09-29] MEDS: SODIUM HYPOCHLORITE 0.25% TOP SCH (23:33)
[2020-09-30] MEDS: Insulin Aspart 100 Units/ML 3 ML Pen SUBCUT SCH ×8 (07:39→21:06)
[2020-09-30] MEDS: Multivitamins with Minerals/Iron/Folic Acid/Lycopene Tab PO SCH (09:10)
[2020-09-30] MEDS: Metoprolol Succinate 50 MG Tab.ER PO SCH (09:10)
[2020-09-30] MEDS: Docusate Sodium 100 MG Cap PO SCH ×2 (09:10→20:21)
[2020-09-30] MEDS: Tacrolimus 1 MG Cap PO SCH (09:10)
[2020-09-30] MEDS: Zinc (Zinc Gluconate) 50 MG Tab PO SCH (09:10)
[2020-09-30] MEDS: Polyethylene Glycol 3350 Powder 17 GM Packet PO SCH (09:10)
[2020-09-30] MEDS: Clopidogrel 75 MG Tab PO SCH (09:10)
[2020-09-30] MEDS: Acetaminophen 325 MG Tab PO SCH ×3 (09:10→20:19)
[2020-09-30] MEDS: predniSONE 5 MG Tab PO SCH (09:11)
[2020-09-30] MEDS: SODIUM HYPOCHLORITE 0.25% TOP SCH ×2 (09:11→20:24)
[2020-09-30] MEDS: Cyanocobalamin (Vitamin B12) 500 MCG Tab PO SCH (09:11)
[2020-09-30] MEDS: Cholecalciferol (Vitamin D3) 25 MCG Tab PO SCH (09:11)
[2020-09-30] MEDS: Insulin Glargine,Human Rec. Analog 100 Units/ML 3 ML Pen SUBCUT SCH ×2 (09:15→20:22)
[2020-09-30] MEDS: SALONPAS TOP SCH ×2 (12:30→21:06)
[2020-09-30] MEDS: Tacrolimus 0.5 MG Cap PO SCH (20:19)
[2020-09-30] MEDS: Famotidine 20 MG Tab PO SCH (20:19)
[2020-09-30] MEDS: Mirtazapine 15 MG Tab PO SCH (20:19)
[2020-09-30] MEDS: Magnesium Oxide 500 MG Tab PO SCH (20:19)
[2020-09-30] MEDS: Pravastatin 20 MG Tab PO SCH (20:19)
[2020-09-30] MEDS: Donepezil 10 MG Tab PO SCH (20:21)
[2020-10-01] MEDS: Insulin Aspart 100 Units/ML 3 ML Pen SUBCUT SCH ×8 (07:30→21:58)
[2020-10-01] MEDS: Acetaminophen 325 MG Tab PO SCH ×3 (09:15→20:20)
[2020-10-01] MEDS: Cholecalciferol (Vitamin D3) 25 MCG Tab PO SCH (09:15)
[2020-10-01] MEDS: Zinc (Zinc Gluconate) 50 MG Tab PO SCH (09:15)
[2020-10-01] MEDS: Cyanocobalamin (Vitamin B12) 500 MCG Tab PO SCH (09:15)
[2020-10-01] MEDS: Docusate Sodium 100 MG Cap PO SCH ×2 (09:16→20:22)
[2020-10-01] MEDS: Clopidogrel 75 MG Tab PO SCH (09:16)
[2020-10-01] MEDS: Polyethylene Glycol 3350 Powder 17 GM Packet PO SCH (09:16)
[2020-10-01] MEDS: Tacrolimus 1 MG Cap PO SCH (09:16)
[2020-10-01] MEDS: Multivitamins with Minerals/Iron/Folic Acid/Lycopene Tab PO SCH (09:16)
[2020-10-01] MEDS: predniSONE 5 MG Tab PO SCH (09:16)
[2020-10-01] MEDS: Metoprolol Succinate 50 MG Tab.ER PO SCH (09:16)
[2020-10-01] MEDS: Insulin Glargine,Human Rec. Analog 100 Units/ML 3 ML Pen SUBCUT SCH ×2 (09:20→20:29)
[2020-10-01] MEDS: SODIUM HYPOCHLORITE 0.25% TOP SCH ×2 (09:20→20:22)
[2020-10-01] MEDS: SALONPAS TOP SCH ×2 (10:05→21:58)
[2020-10-01] MEDS: Mirtazapine 15 MG Tab PO SCH (20:19)
[2020-10-01] MEDS: Tacrolimus 0.5 MG Cap PO SCH (20:21)
[2020-10-01] MEDS: Magnesium Oxide 500 MG Tab PO SCH (20:21)
[2020-10-01] MEDS: Donepezil 10 MG Tab PO SCH (20:21)
[2020-10-01] MEDS: Pravastatin 20 MG Tab PO SCH (20:22)
[2020-10-01] MEDS: Famotidine 20 MG Tab PO SCH (20:22)
[2020-10-02] MEDS: Insulin Aspart 100 Units/ML 3 ML Pen SUBCUT SCH ×7 (07:58→23:13)
[2020-10-02] MEDS: Multivitamins with Minerals/Iron/Folic Acid/Lycopene Tab PO SCH (09:42)
[2020-10-02] MEDS: Docusate Sodium 100 MG Cap PO SCH ×2 (09:42→21:00)
[2020-10-02] MEDS: Tacrolimus 1 MG Cap PO SCH (09:42)
[2020-10-02] MEDS: Polyethylene Glycol 3350 Powder 17 GM Packet PO SCH (09:42)
[2020-10-02] MEDS: Cyanocobalamin (Vitamin B12) 500 MCG Tab PO SCH (09:42)
[2020-10-02] MEDS: Zinc (Zinc Gluconate) 50 MG Tab PO SCH (09:43)
[2020-10-02] MEDS: Acetaminophen 325 MG Tab PO SCH ×3 (09:43→21:00)
[2020-10-02] MEDS: Insulin Glargine,Human Rec. Analog 100 Units/ML 3 ML Pen SUBCUT SCH ×2 (09:44→22:00)
[2020-10-02] MEDS: Clopidogrel 75 MG Tab PO SCH (09:44)
[2020-10-02] MEDS: predniSONE 5 MG Tab PO SCH (09:44)
[2020-10-02] MEDS: Cholecalciferol (Vitamin D3) 25 MCG Tab PO SCH (09:44)
[2020-10-02] MEDS: Metoprolol Succinate 50 MG Tab.ER PO SCH (09:47)
[2020-10-02] MEDS: SALONPAS TOP SCH ×2 (09:48→22:29)
[2020-10-02] MEDS: Pravastatin 20 MG Tab PO SCH (21:00)
[2020-10-02] MEDS: Mirtazapine 15 MG Tab PO SCH (21:00)
[2020-10-02] MEDS: Famotidine 20 MG Tab PO SCH (21:00)
[2020-10-02] MEDS: Donepezil 10 MG Tab PO SCH (21:00)
[2020-10-02] MEDS: Magnesium Oxide 500 MG Tab PO SCH (21:00)
[2020-10-02] MEDS: Calcitriol 0.25 MCG Cap PO SCH (21:00)
[2020-10-02] MEDS: Tacrolimus 0.5 MG Cap PO SCH (21:00)
[2020-10-03] MEDS: Insulin Aspart 100 Units/ML 3 ML Pen SUBCUT SCH ×7 (07:54→21:30)
[2020-10-03] MEDS: Insulin Glargine,Human Rec. Analog 100 Units/ML 3 ML Pen SUBCUT SCH ×2 (08:00→21:31)
[2020-10-03] MEDS: Polyethylene Glycol 3350 Powder 17 GM Packet PO SCH (08:00)
[2020-10-03] MEDS: Clopidogrel 75 MG Tab PO SCH (08:01)
[2020-10-03] MEDS: Zinc (Zinc Gluconate) 50 MG Tab PO SCH (08:01)
[2020-10-03] MEDS: predniSONE 5 MG Tab PO SCH (08:01)
[2020-10-03] MEDS: Multivitamins with Minerals/Iron/Folic Acid/Lycopene Tab PO SCH (08:01)
[2020-10-03] MEDS: Metoprolol Succinate 50 MG Tab.ER PO SCH (08:01)
[2020-10-03] MEDS: Cholecalciferol (Vitamin D3) 25 MCG Tab PO SCH (08:01)
[2020-10-03] MEDS: Tacrolimus 1 MG Cap PO SCH (08:01)
[2020-10-03] MEDS: Cyanocobalamin (Vitamin B12) 500 MCG Tab PO SCH (08:01)
[2020-10-03] MEDS: Docusate Sodium 100 MG Cap PO SCH ×2 (08:01→20:12)
[2020-10-03] MEDS: Acetaminophen 325 MG Tab PO SCH ×3 (08:02→20:13)
[2020-10-03] MEDS: SALONPAS TOP SCH ×2 (10:06→21:32)
[2020-10-03] MEDS: Pravastatin 20 MG Tab PO SCH (20:12)
[2020-10-03] MEDS: Donepezil 10 MG Tab PO SCH (20:12)
[2020-10-03] MEDS: Magnesium Oxide 500 MG Tab PO SCH (20:12)
[2020-10-03] MEDS: Mirtazapine 15 MG Tab PO SCH (20:13)
[2020-10-03] MEDS: Famotidine 20 MG Tab PO SCH (20:13)
[2020-10-03] MEDS: Tacrolimus 0.5 MG Cap PO SCH (20:13)
[2020-10-04] MEDS: Insulin Aspart 100 Units/ML 3 ML Pen SUBCUT SCH ×7 (09:37→21:41)
[2020-10-04] MEDS: Insulin Glargine,Human Rec. Analog 100 Units/ML 3 ML Pen SUBCUT SCH ×2 (09:39→21:06)
[2020-10-04] MEDS: Polyethylene Glycol 3350 Powder 17 GM Packet PO SCH (09:41)
[2020-10-04] MEDS: Cyanocobalamin (Vitamin B12) 500 MCG Tab PO SCH (09:42)
[2020-10-04] MEDS: Clopidogrel 75 MG Tab PO SCH (09:42)
[2020-10-04] MEDS: Acetaminophen 325 MG Tab PO SCH ×3 (09:42→20:12)
[2020-10-04] MEDS: Zinc (Zinc Gluconate) 50 MG Tab PO SCH (09:42)
[2020-10-04] MEDS: predniSONE 5 MG Tab PO SCH (09:42)
[2020-10-04] MEDS: Docusate Sodium 100 MG Cap PO SCH ×2 (09:43→20:14)
[2020-10-04] MEDS: Tacrolimus 1 MG Cap PO SCH (09:43)
[2020-10-04] MEDS: Metoprolol Succinate 50 MG Tab.ER PO SCH (09:43)
[2020-10-04] MEDS: Multivitamins with Minerals/Iron/Folic Acid/Lycopene Tab PO SCH (09:43)
[2020-10-04] MEDS: Cholecalciferol (Vitamin D3) 25 MCG Tab PO SCH (09:43)
[2020-10-04] MEDS: SALONPAS TOP SCH ×2 (09:44→21:43)
[2020-10-04] MEDS: Calcitriol 0.25 MCG Cap PO SCH (20:08)
[2020-10-04] MEDS: Tacrolimus 0.5 MG Cap PO SCH (20:14)
[2020-10-04] MEDS: Donepezil 10 MG Tab PO SCH (20:14)
[2020-10-04] MEDS: Mirtazapine 15 MG Tab PO SCH (20:14)
[2020-10-04] MEDS: Famotidine 20 MG Tab PO SCH (20:15)
[2020-10-04] MEDS: Pravastatin 20 MG Tab PO SCH (20:15)
[2020-10-04] MEDS: Magnesium Oxide 500 MG Tab PO SCH (20:15)
[2020-10-05] MEDS: Clopidogrel 75 MG Tab PO SCH (08:22)
[2020-10-05] MEDS: predniSONE 5 MG Tab PO SCH (08:22)
[2020-10-05] MEDS: Polyethylene Glycol 3350 Powder 17 GM Packet PO SCH (08:25)
[2020-10-05] MEDS: Metoprolol Succinate 50 MG Tab.ER PO SCH (08:25)
[2020-10-05] MEDS: Insulin Aspart 100 Units/ML 3 ML Pen SUBCUT SCH ×8 (08:29→21:01)
[2020-10-05] MEDS: Insulin Glargine,Human Rec. Analog 100 Units/ML 3 ML Pen SUBCUT SCH ×2 (08:31→20:20)
[2020-10-05] MEDS: Tacrolimus 1 MG Cap PO SCH (09:06)
[2020-10-05] MEDS: Acetaminophen 325 MG Tab PO SCH ×3 (09:07→20:18)
[2020-10-05] MEDS: Multivitamins with Minerals/Iron/Folic Acid/Lycopene Tab PO SCH (09:09)
[2020-10-05] MEDS: Cyanocobalamin (Vitamin B12) 500 MCG Tab PO SCH (09:09)
[2020-10-05] MEDS: Docusate Sodium 100 MG Cap PO SCH ×2 (09:09→20:19)
[2020-10-05] MEDS: Cholecalciferol (Vitamin D3) 25 MCG Tab PO SCH (09:11)
[2020-10-05] MEDS: SALONPAS TOP SCH ×2 (11:57→21:01)
[2020-10-05] MEDS: JUVEN PO SCH ×2 (12:04→20:22)
[2020-10-05] MEDS: Donepezil 10 MG Tab PO SCH (20:18)
[2020-10-05] MEDS: Mirtazapine 15 MG Tab PO SCH (20:18)
[2020-10-05] MEDS: Pravastatin 20 MG Tab PO SCH (20:19)
[2020-10-05] MEDS: Magnesium Oxide 500 MG Tab PO SCH (20:19)
[2020-10-05] MEDS: Tacrolimus 0.5 MG Cap PO SCH (20:19)
[2020-10-05] MEDS: Famotidine 20 MG Tab PO SCH (20:19)
[2020-10-06] MEDS: Cholecalciferol (Vitamin D3) 25 MCG Tab PO SCH (08:13)
[2020-10-06] MEDS: Docusate Sodium 100 MG Cap PO SCH ×2 (08:14→21:31)
[2020-10-06] MEDS: Acetaminophen 325 MG Tab PO SCH ×3 (08:14→21:30)
[2020-10-06] MEDS: Cyanocobalamin (Vitamin B12) 500 MCG Tab PO SCH (08:14)
[2020-10-06] MEDS: Clopidogrel 75 MG Tab PO SCH (08:14)
[2020-10-06] MEDS: Metoprolol Succinate 50 MG Tab.ER PO SCH (08:14)
[2020-10-06] MEDS: predniSONE 5 MG Tab PO SCH (08:14)
[2020-10-06] MEDS: Multivitamins with Minerals/Iron/Folic Acid/Lycopene Tab PO SCH (08:14)
[2020-10-06] MEDS: Tacrolimus 1 MG Cap PO SCH (08:14)
[2020-10-06] MEDS: Polyethylene Glycol 3350 Powder 17 GM Packet PO SCH (08:15)
[2020-10-06] MEDS: Insulin Aspart 100 Units/ML 3 ML Pen SUBCUT SCH ×7 (08:19→21:36)
[2020-10-06] MEDS: Insulin Glargine,Human Rec. Analog 100 Units/ML 3 ML Pen SUBCUT SCH ×2 (08:22→21:28)
[2020-10-06] MEDS: JUVEN PO SCH ×2 (08:23→21:30)
[2020-10-06] MEDS: SALONPAS TOP SCH ×2 (10:16→21:37)
[2020-10-06] MEDS: Famotidine 20 MG Tab PO SCH (21:30)
[2020-10-06] MEDS: Tacrolimus 0.5 MG Cap PO SCH (21:30)
[2020-10-06] MEDS: Donepezil 10 MG Tab PO SCH (21:31)
[2020-10-06] MEDS: Magnesium Oxide 500 MG Tab PO SCH (21:31)
[2020-10-06] MEDS: Mirtazapine 15 MG Tab PO SCH (21:31)
[2020-10-06] MEDS: Pravastatin 20 MG Tab PO SCH (21:31)
[2020-10-06] MEDS: Calcitriol 0.25 MCG Cap PO SCH (21:36)
[2020-10-07] MEDS: Insulin Aspart 100 Units/ML 3 ML Pen SUBCUT SCH ×7 (08:03→21:06)
[2020-10-07] MEDS: Polyethylene Glycol 3350 Powder 17 GM Packet PO SCH (08:05)
[2020-10-07] MEDS: Cholecalciferol (Vitamin D3) 25 MCG Tab PO SCH (08:05)
[2020-10-07] MEDS: Cyanocobalamin (Vitamin B12) 500 MCG Tab PO SCH (08:06)
[2020-10-07] MEDS: Clopidogrel 75 MG Tab PO SCH (08:06)
[2020-10-07] MEDS: predniSONE 5 MG Tab PO SCH (08:06)
[2020-10-07] MEDS: Multivitamins with Minerals/Iron/Folic Acid/Lycopene Tab PO SCH (08:06)
[2020-10-07] MEDS: Tacrolimus 1 MG Cap PO SCH (08:07)
[2020-10-07] MEDS: Docusate Sodium 100 MG Cap PO SCH ×2 (08:07→20:27)
[2020-10-07] MEDS: Metoprolol Succinate 50 MG Tab.ER PO SCH (08:07)
[2020-10-07] MEDS: Acetaminophen 325 MG Tab PO SCH ×3 (08:07→20:27)
[2020-10-07] MEDS: JUVEN PO SCH ×2 (08:08→20:30)
[2020-10-07] MEDS: Insulin Glargine,Human Rec. Analog 100 Units/ML 3 ML Pen SUBCUT SCH ×2 (08:15→20:31)
[2020-10-07] MEDS: SALONPAS TOP SCH ×2 (10:17→21:07)
[2020-10-07] MEDS: Pravastatin 20 MG Tab PO SCH (20:26)
[2020-10-07] MEDS: Tacrolimus 0.5 MG Cap PO SCH (20:26)
[2020-10-07] MEDS: Famotidine 20 MG Tab PO SCH (20:27)
[2020-10-07] MEDS: Donepezil 10 MG Tab PO SCH (20:27)
[2020-10-07] MEDS: Mirtazapine 15 MG Tab PO SCH (20:27)
[2020-10-07] MEDS: Magnesium Oxide 500 MG Tab PO SCH (20:27)
[2020-10-08] MEDS: Insulin Aspart 100 Units/ML 3 ML Pen SUBCUT SCH ×11 (08:05→21:10)
[2020-10-08] MEDS: JUVEN PO SCH ×3 (08:06→21:09)
[2020-10-08] MEDS: Docusate Sodium 100 MG Cap PO SCH ×3 (08:06→21:07)
[2020-10-08] MEDS: Polyethylene Glycol 3350 Powder 17 GM Packet PO SCH ×2 (08:06→11:18)
[2020-10-08] MEDS: Cyanocobalamin (Vitamin B12) 500 MCG Tab PO SCH ×2 (08:07→11:18)
[2020-10-08] MEDS: Metoprolol Succinate 50 MG Tab.ER PO SCH ×2 (08:07→11:18)
[2020-10-08] MEDS: Clopidogrel 75 MG Tab PO SCH ×2 (08:07→11:18)
[2020-10-08] MEDS: Cholecalciferol (Vitamin D3) 25 MCG Tab PO SCH ×2 (08:07→11:19)
[2020-10-08] MEDS: Multivitamins with Minerals/Iron/Folic Acid/Lycopene Tab PO SCH ×2 (08:07→11:17)
[2020-10-08] MEDS: Tacrolimus 1 MG Cap PO SCH ×2 (08:07→11:18)
[2020-10-08] MEDS: predniSONE 5 MG Tab PO SCH ×2 (08:07→11:18)
[2020-10-08] MEDS: Insulin Glargine,Human Rec. Analog 100 Units/ML 3 ML Pen SUBCUT SCH ×2 (11:17→21:09)
[2020-10-08] MEDS: Acetaminophen 325 MG Tab PO SCH ×3 (11:18→21:08)
[2020-10-08] MEDS: SALONPAS TOP SCH ×2 (11:19→21:11)
--- NOTE | 2020-10-08 12:25 | PCM.PN ---
- General Info Date of Service: 10/08/20 Functional Status: Reports: Pain Controlled. Denies: Tolerating Diet, Ambulating - Review of Systems General: Reports: Weakness. Denies: Fever Pulmonary: Denies: Shortness of Breath, Cough, Sputum Cardiovascular: Denies: Chest Pain, Palpitations, Dyspnea on Exertion Gastrointestinal: Denies: Abdominal Pain Skin: Reports: Other (wound VAC intact) Neurological: Reports: Pre-Existing Deficit, Difficulty Walking, Weakness, Gait Disturbance Psychiatric: Reports: Other (does not desire to eat or converse today) - Patient Data Vitals - Most Recent: Last Vital Signs Temp 98.2 F 10/07/20 10:00 Pulse 83 10/07/20 10:00 Resp 16 10/07/20 10:00 BP 127/55 L 10/07/20 10:00 Pulse Ox 94 L 10/07/20 10:00 Weight - Most Recent: 139 lb 14.4 oz I&O - Last 24 Hours: Intake & Output 10/07/20 10/08/20 10/08/20 22:59 06:59 14:59 Intake Total 350 50 Output Total 300 450 Balance 50 -400 Med Orders - Current: Current Medications Acetaminophen (Acetaminophen 325 Mg Tab) 650 mg PO TID [facility] Last Admin: 10/08/20 11:18 Dose: Not Given Documented by: Acetaminophen (Acetaminophen 325 Mg Tab) 650 mg PO Q6H PRN PRN Reason: Pain (Mild or moderate 1-6) Hydrocodone Bitart/Acetaminophen (Acetaminophen/Hydrocodone 325-5 Mg Tab) 1 tab PO Q6H PRN PRN Reason: Pain (severe 7-10) Last Admin: 09/24/20 23:52 Dose: 1 tab Documented by: Bisacodyl (Bisacodyl 10 Mg Supp) 10 mg RECTAL ONETIME PRN PRN Reason: Constipation Last Admin: 09/08/20 14:15 Dose: 10 mg Documented by: Calcitriol (Calcitriol 0.25 Mcg Cap) 0.25 mcg PO MOWEFR [facility] Last Admin: 10/06/20 21:36 Dose: 0.25 mcg Documented by: Cholecalciferol (Cholecalciferol (Vitamin D3) 25 Mcg Tab) 50 mcg PO DAILY [facility] Last Admin: 10/08/20 11:19 Dose: Not Given Documented by: Clopidogrel Bisulfate (Clopidogrel 75 Mg Tab) [facility] Last Admin: 10/08/20 11:18 Dose: Not Given Documented by: Cyanocobalamin (Cyanocobalamin (Vitamin B12) 500 Mcg Tab) 500 mcg PO DAILY [facility] Last Admin: 10/08/20 11:18 Dose: Not Given Documented by: Diclofenac Sodium (Diclofenac Sodium 1% Gel 100 Gm Tube) 2 gm TOP QID PRN PRN Reason: Pain Last Admin: 09/21/20 09:12 Dose: 1 applic Documented by: Docusate Sodium (Docusate Sodium 100 Mg Cap) 100 mg PO BID [facility] Last Admin: 10/08/20 11:17 Dose: Not Given Documented by: Donepezil HCl (Donepezil 10 Mg Tab) 10 mg PO BEDTIME [facility] Last Admin: 10/07/20 20:27 Dose: 10 mg Documented by: Famotidine (Famotidine 20 Mg Tab) 20 mg PO BEDTIME [facility] Last Admin: 10/07/20 20:27 Dose: 20 mg Documented by: Glucagon (Glucagon,Human Recombinant 1 Mg Vial) 1 mg IM ASDIRECTED PRN PRN Reason: Hypoglycemia Insulin Aspart (Insulin Aspart 100 Units/Ml 3 Ml Pen) 0 unit SUBCUT WITHMEALSANDBED [facility]; Protocol Last Admin: 10/08/20 12:15 Dose: 2 units Documented by: Insulin Aspart (Insulin Aspart 100 Units/Ml 3 Ml Pen) 6 unit SUBCUT TIDMEALS [facility] Last Admin: 10/08/20 12:15 Dose: 6 unit Documented by: Insulin Glargine (Insulin Glargine,Human Rec. Analog 100 Units/Ml 3 Ml Pen) 12 units SUBCUT BID [facility] Last Admin: 10/08/20 11:17 Dose: Not Given Documented by: Magnesium Oxide (Magnesium Oxide 500 Mg Tab) 500 mg PO BEDTIME [facility] Last Admin: 10/07/20 20:27 Dose: 500 mg Documented by: Metoprolol Succinate (Metoprolol Succinate 50 Mg Tab.Er) 50 [facility] [place] Last Admin: 10/08/20 11:18 Dose: Not Given Documented by: Mirtazapine (Mirtazapine 15 Mg Tab) 22.5 mg PO BEDTIME [facility] Last Admin: 10/07/20 20:27 Dose: 22.5 mg Documented by: Multivitamins/Minerals (Multivitamins With Minerals/Iron/Folic Acid/Lycopene T ab) 1 tab PO DAILY [facility] Last Admin: 10/08/20 11:17 Dose: Not Given Documented by: Mycophenolate Mofetil (Mycophenolate Mofetil 500 Mg Tab) 1,000 mg PO BID@1000,2200 [facility] Last Admin: 10/08/20 11:19 Dose: Not Given Documented by: Cayden Powder Packet (23gm) 1 each PO BID [facility] Last Admin: 10/08/20 11:18 Dose: Not Given Documented by: Salonpas Patch( (Menthol,Camphor)) 1 each TOP Q12H [facility] Last Admin: 10/08/20 11:19 Dose: Not Given Documented by: Polyethylene Glycol (Polyethylene Glycol 3350 Powder 17 Gm Packet) 17 gm PO DAILY [facility] Last Admin: 10/08/20 11:18 Dose: Not Given Documented by: Pravastatin Sodium (Pravastatin 20 Mg Tab) 20 mg PO BEDTIME [facility] Last Admin: 10/07/20 20:26 Dose: 20 mg Documented by: Prednisone (Prednisone 5 Mg Tab) 5 mg PO QAM [facility] Last Admin: 10/08/20 11:18 Dose: Not Given Documented by: Senna/Docusate Sodium (Docusate Sodium/Sennosides 50-8.6 Mg Tab) 1 tab PO DAILY PRN PRN Reason: Constipation Last Admin: 09/24/20 21:11 Dose: 1 tab Documented by: Tacrolimus (Tacrolimus 1 Mg Cap) 1 mg PO QAM [facility] Last Admin: 10/08/20 11:18 Dose: Not Given Documented by: Tacrolimus (Tacrolimus 0.5 Mg Cap) 0.5 mg PO BEDTIME [facility] Last Admin: 10/07/20 20:26 Dose: 0.5 mg Documented by: Discontinued Medications Acetaminophen (Acetaminophen 650 Mg Tab.Er) 650 mg PO Q8H PRN PRN Reason: Pain Last Admin: 09/09/20 09:42 Dose: 650 mg Documented by: Acetaminophen (Acetaminophen 325 Mg Tab) 650 mg PO Q6H PRN PRN Reason: Pain Last Admin: 09/16/20 06:10 Dose: 650 mg Documented by: Acetaminophen (Acetaminophen 325 Mg Tab) 650 mg PO Q4H [facility] Last Admin: 09/24/20 09:29 Dose: 650 mg Documented by: Ceftriaxone Sodium (Ceftriaxone 1 Gm Vial) 1 gm IVPUSH Q24H [facility] Last Admin: 09/11/20 18:52 Dose: Not Given Documented by: Dextrose/Water (50% Dextrose In Water 50 Ml Syringe) 50 ml IV ASDIRECTED PRN PRN Reason: Hypoglycemia Dextrose/Water (50% Dextrose In Water 50 Ml Syringe) 50 ml IV ASDIRECTED PRN PRN Reason: Hypoglycemia Docusate Sodium (Docusate Sodium 100 Mg Cap) 100 mg PO BEDTIME [facility] Erythromycin (Erythromycin Base 0.5% Ophth Oint 3.5 Gm Tube) 1 gm EYEBOTH TID [facility] Last Admin: 09/15/20 08:40 Dose: Not Given Documented by: Glucagon (Glucagon,Human Recombinant 1 Mg Vial) 1 mg IM ASDIRECTED PRN PRN Reason: Hypoglycemia Vancomycin HCl 1 gm/ Sodium (Chloride) 250 mls @ 150 mls/hr IV 1000,2200 [facility] Last Admin: 09/11/20 06:19 Dose: Not Given Documented by: Sodium Chloride (Normal Saline) 100 mls @ 100 mls/hr IV ASDIRECTED [facility] Last Admin: 09/20/20 15:39 Dose: 100 mls/hr Documented by: Ciprofloxacin/Dextrose 400 mg/ (Premix) 200 mls @ 200 mls/hr IV Q8H [facility] Last Admin: 09/14/20 07:55 Dose: 200 mls/hr Documented by: Levofloxacin/Dextrose 250 mg/ (Premix) 50 mls @ 100 mls/hr IV Q24H [facility] Stop: 09/25/20 17:01 Last Admin: 09/20/20 16:59 Dose: 100 mls/hr Documented by: Levofloxacin/Dextrose 500 mg/ (Premix) 100 mls @ 100 mls/hr IV Q24H [facility] Stop: 09/25/20 23:59 Last Admin: 09/20/20 15:39 Dose: 100 mls/hr Documented by: Insulin Aspart (Insulin Aspart 100 Units/Ml 3 Ml Pen) 0 unit SUBCUT WITHMEALSANDBED [facility]; Protocol Last Admin: 09/10/20 12:09 Dose: 6 units Documented by: Insulin Aspart (Insulin Aspart 100 Units/Ml 3 Ml Pen) 12 unit SUBCUT ONETIME ONE Stop: 09/12/20 16:39 Last Admin: 09/12/20 17:02 Dose: 12 units Documented by: Insulin Aspart (Insulin Aspart 100 Units/Ml 3 Ml Pen) 10 unit SUBCUT ONETIME ONE Stop: 09/12/20 17:59 Last Admin: 09/12/20 18:18 Dose: 10 unit Documented by: Insulin Glargine (Insulin Glargine,Human Rec. Analog 100 Units/Ml 3 Ml Pen) 8 units SUBCUT BID [facility] Last Admin: 09/11/20 21:00 Dose: 8 unit Documented by: Insulin Glargine (Insulin Glargine,Human Rec. Analog 100 Units/Ml 3 Ml Pen) 10 units SUBCUT BID [facility] Last Admin: 09/13/20 08:01 Dose: 10 units Documented by: Insulin Glargine (Insulin Glargine,Human Rec. Analog 100 Units/Ml 3 Ml Pen) 12 units SUBCUT BEDTIME ONE Stop: 09/12/20 22:01 Last Admin: 09/12/20 22:19 Dose: 12 units Documented by: Mirtazapine (Mirtazapine 15 Mg Tab) 15 mg PO BEDTIME [facility] Last Admin: 09/23/20 21:31 Dose: 15 mg Documented by: Mycophenolate 500mg (Tab - Ptom) 2 each PO BID@1000,2200 [facility] Last Admin: 09/14/20 09:49 Dose: 2 each Documented by: Tacrolimus 0.5mg Cap (- Ptom) 1 each PO BEDTIME [facility] Last Admin: 09/13/20 21:06 Dose: 1 each Documented by: Pravastatin 20mg Tab (- Ptom) 1 each PO BEDTIME [facility] Last Admin: 09/13/20 21:07 Dose: 1 each Documented by: Tacrolimus 1mg Cap - (Ptom) 1 each PO QAM [facility] Last Admin: 09/14/20 08:01 Dose: 1 each Documented by: Polyethylene Glycol (Polyethylene Glycol 3350 Powder 17 Gm Packet) 17 gm PO DAILY [facility] Sodium Chloride (Sodium Chloride 0.9% 10 Ml Syringe) 10 ml FLUSH Q8HR PRN PRN Reason: IV Use Last Admin: 09/22/20 22:38 Dose: 10 ml Documented by: Sodium Chloride (Sodium Chloride 0.9% 10 Ml Syringe) 10 ml FLUSH 0900,2100 [facility] Last Admin: 09/23/20 10:11 Dose: 10 ml Documented by: Sodium Hypochlorite (Sodium Hypochlorite 0.25% Top Soln 473 Ml Bot) 1 ml TOP TID [facility] Last Admin: 09/19/20 09:37 Dose: Not Given Documented by: Sodium Hypochlorite (Sodium Hypochlorite 0.25% Top Soln 473 Ml Bot) 1 ml TOP BID [facility] Last Admin: 10/01/20 20:22 Dose: Not Given Documented by: Tramadol HCl (Tramadol 50 Mg Tab) 50 mg PO Q6H PRN PRN Reason: Pain Last Admin: 09/15/20 11:57 Dose: 50 mg Documented by: Zinc Gluconate (Zinc (Zinc Gluconate) 50 Mg Tab) 50 mg PO DAILY [facility] Last Admin: 10/04/20 09:42 Dose: 50 mg Documented by: - Exam Quality Assessment: No: Supplemental Oxygen General: No Acute Distress, Other (sleeping, does not desire to converse). No: Cooperative Neck: Supple Lungs: Clear to Auscultation, Normal Respiratory Effort Cardiovascular: Regular Rate, Regular Rhythm GI/Abdominal Exam: Normal Bowel Sounds, Soft Extremities: No Pedal Edema Skin: Other (wound vac to R heel. Seems to be healing with whitish DC. Multiple healed scars. ) Wound/Incisions: Healing Well, Dressing Dry and Intact Neurological: Normal Speech Psy/Mental Status: Labile Mood - Patient Data Result Diagrams: 09/25/20 08:00 09/19/20 13:00 Sepsis Event Note - Evaluation Sepsis Screening Result: No Definite Risk - Problem List Review Problem List Initiated/Reviewed/Updated: Yes - Plan Plan:: HPI summary/Acute hospitalization course: 80yoM with a history notable for CKD s/p renal transplant (2012), DMT2, and PAD, with a right heel ulcer present since mid-June who was admitted to inpatient status via the ED on 09/05/20 for suspected sepsis after presenting with tachypnea, hypotension, increased confusion, and elevated lactate (2.4) for which source was presumed to be right heel ulcer. Initial qSOFA 1/3. He was star linda on IVF and IV vancomycin and had debridement and bone biopsy performed on 09/06/[address] Rosalinda Fajardo. Lactate normalized upon recheck. Blood cultures without growth. PICC line placed on 09/07/20. He had clinical improvement and given need for intensive wound care and ongoing IV antibiotic therapy as well as physical rehabilitation in the setting of profound deconditioning/debility, he was admitted to swing bed status. Pertinent recent wound care history: taken from previous documentation 07/04/20: Initial evaluation for wound. Debridement performed. Started ciprofloxac in/TMP-SMX for 5 days. 07/18/20: Referral to podiatry/wound care. Started doxycycline for 21 days. 08/01/20: Angioplasty to R superficial femoral, tibioperoneal, peroneal, and anterior tibial arteries. 08/23/20: Medi-honey gel and ABD to wound left in place x2 days. Instructed to offload heel entirely, float heel when in bed or recliner, and use toe touch weight bearing to the right foot with [employer]AR[employer] shoe if must ambulate. 08/25/20: First larval dose applied. 08/28/20: Second larval dose applied. Prior authorization for wound vac placed, with plan to consider once wound base better optimized. 08/30/20: Third larval dose applied. 09/01/20: Fourth larval dose applied. Scheduled podiatry re-evaluation for consideration for negative pressure therapy, biologics (Grafix vs [place]?), and calcanectomy. 09/04/20: Started Dakins 0.125% WTD dressings. 09/05/20: Admitted to for possible sepsis due to foot infection. Started on vancomycin IV. 09/06/20: Was scheduled to see vascular surgery, podiatry, and wound care at [facility] to discuss plan of care, but was admitted the evening prior to . Debridement and bone biopsy under anesthesia performed by Rosalinda Fajardo MD. Wound culture grew E. coli, P. aeruginosa, enterococcus, and S. marcescens; pansensitive to fluoroquinolones. Bone biopsy revealed no evidence of osteomyelitis. 09/11/20: Antibiotic regimen changed from vancomycin to ciprofloxacin IV. 09/14/20: Wound culture revealed S. maltophilia sensitive to levofloxacin and TMP-SMX. Antibiotic regimen changed from ciprofloxacin to levofloxacin IV. 09/18/20: Saw Dr. Call, podiatry at [facility]. Plans to start larval therapy again on 09/21/20. Weight bearing as tolerated encouraged. 09/20/20: Antibiotics discontinued after coordination with podiatry and wound care. 09/21/20: Fifth larval dose applied today to assist with debridement of site with a larval cage. 09/24/20: Larvae removed, restarted dakin's 0.125% WTD BID to heel 09/27/20: Seen in [place], Wound cleaned/debridement down into the level of bone. Dsg medihoney gel, collagen and a durable negative pressure wound therapy applied with continuous therapy at 120 mmHg Hospitalization problems and plan: # Right heel ulcer, full thickness, Wound Vac, seems to be healing # Deconditioning/debility - Physical therapy, Reviewed PT notes: Participation levels vary from poor participation to fair, # Generalized pain - Continue Tylenol, SalanPas, and diclofenac gel prn # DMT2: 08/01/20 A1c 7.6. Poor appetite, Add Cayden for nutritional support, Higher BG due to sweets intake however with poor appetite will not adjust Insulin today # Anemia of chronic kidney disease and vitamin B12 deficiency:Decreased from baseline during acute hospitalization. B12 repleted, folate normal, and iron panel without iron deficiency. - Continue B12 500mcg daily Resolved hospitalization problems: # Possible osteomyelitis, ruled out # History of sepsis, resolved # Bacterial conjunctivitis, resolved Chronic, stable conditions: # Hx TIA / CAD s/p CABG / PAD s/p RLE angioplasty 08/01/20 / HLD: Continue clopidogrel 75mg daily, metoprolol succinate 50mg daily, pravastatin 20mg. # Aortic stenosis: 05/19/20 echo with mild aortic stenosis. # Diastolic dysfunction: 05/19/20 echo with grade 1 diastolic dysfunction. Stable fluid status. No diuretics at baseline. # GERD: Controlled. Continue [id number]. # Constipation: Stable. Continue docusate 100mg BID, Senna-docusate daily prn, bisacodyl prn. # S/p cadaveric renal transplant (2012) / History of BK viremia: 09/13/20 tacrolimus level 4.2. Continue tacrolimus 1/0.5mg BID, mycophenolate 1000mg BID, prednisone 5mg daily. Managed by nephrology Dr. Hall last app06/16/20. # Hypomagnesemia: 08/02/20 Mg 1.9. Continue magnesium oxide 500mg daily. # Osteopenia: Last Dexa Date 07/09/2016. Continue alendronate weekly, calcitriol 0.25mcg MWF, vitamin D 50mcg daily. # Protein-calorie malnutrition / Weight loss: Stable recently. Continue MV daily, zinc 50mg daily. Improvement since prior initiation of mirtazapine. Appreciate dietary consult. Monitor weight weekly. # MCI: Stable.Continue donepezil 10mg daily. # Depression / Insomnia: Improved recently. Continue mirtazapine 15mg daily. Monitor closely. # History SCC of R ear, L arm, and R forearm: S/p multiple excisions. Followed by dermatology. Hospitalization details: # FEN: No IVF. Electrolytes normal. Informed nusing staff to ensure Diabetic d iet to aid in wound healing. # PPX: DVT ppx not indicated during swing bed stay. Will hold off on melatonin for delirium ppx given current use of mirtazapine. # Code status: CPR ONLY, DNI. # Emergency contact: , Fiordal[place]. # Disposition: Continue swing bed status for further management of heel ulcer and deconditioning/debility. Wound Vac.
[2020-10-08] MEDS: Tacrolimus 0.5 MG Cap PO SCH (21:07)
[2020-10-08] MEDS: Famotidine 20 MG Tab PO SCH (21:07)
[2020-10-08] MEDS: Pravastatin 20 MG Tab PO SCH (21:07)
[2020-10-08] MEDS: Donepezil 10 MG Tab PO SCH (21:08)
[2020-10-08] MEDS: Mirtazapine 15 MG Tab PO SCH (21:08)
[2020-10-08] MEDS: Magnesium Oxide 500 MG Tab PO SCH (21:09)
[2020-10-09] MEDS: Insulin Aspart 100 Units/ML 3 ML Pen SUBCUT SCH ×7 (07:29→21:28)
[2020-10-09] MEDS: Multivitamins with Minerals/Iron/Folic Acid/Lycopene Tab PO SCH (09:30)
[2020-10-09] MEDS: Clopidogrel 75 MG Tab PO SCH (09:30)
[2020-10-09] MEDS: Metoprolol Succinate 50 MG Tab.ER PO SCH (09:30)
[2020-10-09] MEDS: Polyethylene Glycol 3350 Powder 17 GM Packet PO SCH (09:30)
[2020-10-09] MEDS: Tacrolimus 1 MG Cap PO SCH (09:30)
[2020-10-09] MEDS: predniSONE 5 MG Tab PO SCH (09:31)
[2020-10-09] MEDS: Cholecalciferol (Vitamin D3) 25 MCG Tab PO SCH (09:31)
[2020-10-09] MEDS: Acetaminophen 325 MG Tab PO SCH ×3 (09:31→20:43)
[2020-10-09] MEDS: Cyanocobalamin (Vitamin B12) 500 MCG Tab PO SCH (09:31)
[2020-10-09] MEDS: Docusate Sodium 100 MG Cap PO SCH ×2 (09:31→20:42)
[2020-10-09] MEDS: Insulin Glargine,Human Rec. Analog 100 Units/ML 3 ML Pen SUBCUT SCH ×2 (09:31→21:26)
[2020-10-09] MEDS: JUVEN PO SCH ×2 (09:33→20:44)
[2020-10-09] MEDS: SALONPAS TOP SCH ×2 (09:33→21:29)
[2020-10-09] MEDS: Pravastatin 20 MG Tab PO SCH (20:42)
[2020-10-09] MEDS: Famotidine 20 MG Tab PO SCH (20:42)
[2020-10-09] MEDS: Donepezil 10 MG Tab PO SCH (20:42)
[2020-10-09] MEDS: Tacrolimus 0.5 MG Cap PO SCH (20:42)
[2020-10-09] MEDS: Magnesium Oxide 500 MG Tab PO SCH (20:42)
[2020-10-09] MEDS: Mirtazapine 15 MG Tab PO SCH (20:43)
[2020-10-09] MEDS: Calcitriol 0.25 MCG Cap PO SCH (20:47)
[2020-10-10] MEDS: Metoprolol Succinate 50 MG Tab.ER PO SCH (09:11)
[2020-10-10] MEDS: Acetaminophen 325 MG Tab PO SCH ×3 (09:12→20:39)
[2020-10-10] MEDS: Docusate Sodium 100 MG Cap PO SCH ×2 (09:12→20:40)
[2020-10-10] MEDS: Multivitamins with Minerals/Iron/Folic Acid/Lycopene Tab PO SCH (09:12)
[2020-10-10] MEDS: Tacrolimus 1 MG Cap PO SCH (09:13)
[2020-10-10] MEDS: predniSONE 5 MG Tab PO SCH (09:13)
[2020-10-10] MEDS: Clopidogrel 75 MG Tab PO SCH (09:13)
[2020-10-10] MEDS: Insulin Glargine,Human Rec. Analog 100 Units/ML 3 ML Pen SUBCUT SCH ×2 (09:14→20:42)
[2020-10-10] MEDS: Cyanocobalamin (Vitamin B12) 500 MCG Tab PO SCH (09:14)
[2020-10-10] MEDS: Insulin Aspart 100 Units/ML 3 ML Pen SUBCUT SCH ×8 (09:16→21:02)
[2020-10-10] MEDS: JUVEN PO SCH ×2 (09:26→20:34)
[2020-10-10] MEDS: Polyethylene Glycol 3350 Powder 17 GM Packet PO SCH (09:26)
[2020-10-10] MEDS: Cholecalciferol (Vitamin D3) 25 MCG Tab PO SCH ×2 (09:30→09:42)
[2020-10-10] MEDS: SALONPAS TOP SCH ×2 (09:40→21:02)
[2020-10-10] MEDS: Famotidine 20 MG Tab PO SCH (20:38)
[2020-10-10] MEDS: Magnesium Oxide 500 MG Tab PO SCH (20:38)
[2020-10-10] MEDS: Pravastatin 20 MG Tab PO SCH (20:38)
[2020-10-10] MEDS: Mirtazapine 15 MG Tab PO SCH (20:38)
[2020-10-10] MEDS: Tacrolimus 0.5 MG Cap PO SCH (20:40)
[2020-10-10] MEDS: Donepezil 10 MG Tab PO SCH (20:40)
[2020-10-11] MEDS: Insulin Aspart 100 Units/ML 3 ML Pen SUBCUT SCH ×7 (08:25→21:28)
[2020-10-11] MEDS: JUVEN PO SCH ×2 (08:28→21:22)
[2020-10-11] MEDS: Polyethylene Glycol 3350 Powder 17 GM Packet PO SCH (08:29)
[2020-10-11] MEDS: Multivitamins with Minerals/Iron/Folic Acid/Lycopene Tab PO SCH (08:31)
[2020-10-11] MEDS: Tacrolimus 1 MG Cap PO SCH (08:31)
[2020-10-11] MEDS: Acetaminophen 325 MG Tab PO SCH ×3 (08:31→21:15)
[2020-10-11] MEDS: Cyanocobalamin (Vitamin B12) 500 MCG Tab PO SCH (08:31)
[2020-10-11] MEDS: Cholecalciferol (Vitamin D3) 25 MCG Tab PO SCH (08:31)
[2020-10-11] MEDS: Clopidogrel 75 MG Tab PO SCH (08:31)
[2020-10-11] MEDS: predniSONE 5 MG Tab PO SCH (08:31)
[2020-10-11] MEDS: Docusate Sodium 100 MG Cap PO SCH ×2 (08:31→21:15)
[2020-10-11] MEDS: Metoprolol Succinate 50 MG Tab.ER PO SCH (08:34)
[2020-10-11] MEDS: Insulin Glargine,Human Rec. Analog 100 Units/ML 3 ML Pen SUBCUT SCH ×2 (08:37→21:27)
[2020-10-11] MEDS: SALONPAS TOP SCH ×2 (10:07→21:22)
--- NOTE | 2020-10-11 10:45 | PCM.PN ---
- General Info Date of Service: 10/11/20 Functional Status: Reports: Pain Controlled, Tolerating Diet - Review of Systems General: Reports: Weakness, Fatigue, Chills. Denies: Fever HEENT: Denies: Headaches, Sore Throat Pulmonary: Denies: Shortness of Breath, Cough Cardiovascular: Denies: Chest Pain, Palpitations, Edema Gastrointestinal: Reports: No Symptoms. Denies: Abdominal Pain, Constipation, Decreased Appetite, Diarrhea Genitourinary: Reports: No Symptoms Musculoskeletal: Reports: No Symptoms Skin: Reports: Other (Ulceration of right heel) Neurological: Reports: Confusion (mild last night), Weakness. Denies: Headache Psychiatric: Reports: No Symptoms - Patient Data Vitals - Most Recent: Last Vital Signs Temp 99 F 10/11/20 08:39 Pulse 88 10/11/20 08:39 Resp 18 10/11/20 08:39 BP 155/76 H 10/11/20 08:39 Pulse Ox 95 10/11/20 08:39 Weight - Most Recent: 139 lb 14.4 oz I&O - Last 24 Hours: Intake & Output 10/10/20 10/11/20 10/11/20 22:59 06:59 14:59 Intake Total 120 0 Balance 120 0 Med Orders - Current: Current Medications Acetaminophen (Acetaminophen 325 Mg Tab) 650 mg PO TID [facility] Last Admin: 10/11/20 08:31 Dose: 650 mg Documented by: Acetaminophen (Acetaminophen 325 Mg Tab) 650 mg PO Q6H PRN PRN Reason: Pain (Mild or moderate 1-6) Hydrocodone Bitart/Acetaminophen (Acetaminophen/Hydrocodone 325-5 Mg Tab) 1 tab PO Q6H PRN PRN Reason: Pain (severe 7-10) Last Admin: 09/24/20 23:52 Dose: 1 tab Documented by: Bisacodyl (Bisacodyl 10 Mg Supp) 10 mg RECTAL ONETIME PRN PRN Reason: Constipation Last Admin: 09/08/20 14:15 Dose: 10 mg Documented by: Calcitriol (Calcitriol 0.25 Mcg Cap) 0.25 mcg PO MOWEFR [facility] Last Admin: 10/09/20 20:47 Dose: 0.25 mcg Documented by: Cholecalciferol (Cholecalciferol (Vitamin D3) 25 Mcg Tab) 50 mcg PO DAILY [facility] Last Admin: 10/11/20 08:31 Dose: 50 mcg Documented by: Clopidogrel Bisulfate (Clopidogrel 75 Mg Tab) 75 mg PO QAM [facility] Last Admin: 10/11/20 08:31 Dose: 75 mg Documented by: Cyanocobalamin (Cyanocobalamin (Vitamin B12) 500 Mcg Tab) 500 mcg PO DAILY [facility] Last Admin: 10/11/20 08:31 Dose: 500 mcg Documented by: Diclofenac Sodium (Diclofenac Sodium 1% Gel 100 Gm Tube) 2 gm TOP QID PRN PRN Reason: Pain Last Admin: 09/21/20 09:12 Dose: 1 applic Documented by: Docusate Sodium (Docusate Sodium 100 Mg Cap) 100 mg PO BID [facility] Last Admin: 10/11/20 08:31 Dose: 100 mg Documented by: Donepezil HCl (Donepezil 10 Mg Tab) 10 mg PO BEDTIME [facility] Last Admin: 10/10/20 20:40 Dose: 10 mg Documented by: Famotidine (Famotidine 20 Mg Tab) 20 mg PO BEDTIME [facility] Last Admin: 10/10/20 20:38 Dose: 20 mg Documented by: Glucagon (Glucagon,Human Recombinant 1 Mg Vial) 1 mg IM ASDIRECTED PRN PRN Reason: Hypoglycemia Insulin Aspart (Insulin Aspart 100 Units/Ml 3 Ml Pen) 0 unit SUBCUT WITHMEALSANDBED [facility]; Protocol Last Admin: 10/11/20 08:25 Dose: 2 units Documented by: Insulin Aspart (Insulin Aspart 100 Units/Ml 3 Ml Pen) 6 unit SUBCUT TIDMEALS [facility] Last Admin: 10/11/20 08:25 Dose: 6 unit Documented by: Insulin Glargine (Insulin Glargine,Human Rec. Analog 100 Units/Ml 3 Ml Pen) 12 units SUBCUT BID [facility] Last Admin: 10/11/20 08:37 Dose: 12 units Documented by: Magnesium Oxide (Magnesium Oxide 500 Mg Tab) 500 mg PO BEDTIME [facility] Last Admin: 10/10/20 20:38 Dose: 500 mg Documented by: Metoprolol Succinate (Metoprolol Succinate 50 Mg Tab.Er) 50 mg [place] Last Admin: 10/11/20 08:34 Dose: 50 mg Documented by: Mirtazapine (Mirtazapine 15 Mg Tab) 22.5 mg PO BEDTIME [facility] Last Admin: 10/10/20 20:38 Dose: 22.5 mg Documented by: Multivitamins/Minerals (Multivitamins With Minerals/Iron/Folic Acid/Lycopene Tab) 1 tab PO DAILY [facility] Last Admin: 10/11/20 08:31 Dose: 1 tab Documented by: Mycophenolate Mofetil (Mycophenolate Mofetil 500 Mg Tab) 1,000 mg PO BID@1000,2200 [facility] Last Admin: 10/11/20 09:39 Dose: 1,000 mg Documented by: Cayden Powder Packet (23gm) 1 each PO BID [facility] Last Admin: 10/11/20 08:28 Dose: 1 each Documented by: Salonpas Patch( (Menthol,Camphor)) 1 each TOP Q12H [facility] Last Admin: 10/11/20 10:07 Dose: Not Given Documented by: Polyethylene Glycol (Polyethylene Glycol 3350 Powder 17 Gm Packet) 17 gm PO DAILY [facility] Last Admin: 10/11/20 08:29 Dose: 17 gm Documented by: Pravastatin Sodium (Pravastatin 20 Mg Tab) 20 mg PO BEDTIME [facility] Last Admin: 10/10/20 20:38 Dose: 20 mg Documented by: Prednisone (Prednisone 5 Mg Tab) 5 mg PO QAM [facility] Last Admin: 10/11/20 08:31 Dose: 5 mg Documented by: Senna/Docusate Sodium (Docusate Sodium/Sennosides 50-8.6 Mg Tab) 1 tab PO DAILY PRN PRN Reason: Constipation Last Admin: 09/24/20 21:11 Dose: 1 tab Documented by: Tacrolimus (Tacrolimus 1 Mg Cap) 1 mg PO QAM [facility] Last Admin: 10/11/20 08:31 Dose: 1 mg Documented by: Tacrolimus (Tacrolimus 0.5 Mg Cap) 0.5 mg PO BEDTIME [facility] Last Admin: 10/10/20 20:40 Dose: 0.5 mg Documented by: Discontinued Medications Acetaminophen (Acetaminophen 650 Mg Tab.Er) 650 mg PO Q8H PRN PRN Reason: Pain Last Admin: 09/09/20 09:42 Dose: 650 mg Documented by: Acetaminophen (Acetaminophen 325 Mg Tab) 650 mg PO Q6H PRN PRN Reason: Pain Last Admin: 09/16/20 06:10 Dose: 650 mg Documented by: Acetaminophen (Acetaminophen 325 Mg Tab) 650 mg PO Q4H [facility] Last Admin: 09/24/20 09:29 Dose: 650 mg Documented by: Ceftriaxone Sodium (Ceftriaxone 1 Gm Vial) 1 gm IVPUSH Q24H [facility] Last Admin: 09/11/20 18:52 Dose: Not Given Documented by: Dextrose/Water (50% Dextrose In Water 50 Ml Syringe) 50 ml IV ASDIRECTED PRN PRN Reason: Hypoglycemia Dextrose/Water (50% Dextrose In Water 50 Ml Syringe) 50 ml IV ASDIRECTED PRN PRN Reason: Hypoglycemia Docusate Sodium (Docusate Sodium 100 Mg Cap) 100 mg PO BEDTIME [facility] Erythromycin (Erythromycin Base 0.5% Ophth Oint 3.5 Gm Tube) 1 gm EYEBOTH TID [facility] Last Admin: 09/15/20 08:40 Dose: Not Given Documented by: Glucagon (Glucagon,Human Recombinant 1 Mg Vial) 1 mg IM ASDIRECTED PRN PRN Reason: Hypoglycemia Vancomycin HCl 1 gm/ Sodium (Chloride) 250 mls @ 150 mls/hr IV 1000,2200 [facility] Last Admin: 09/11/20 06:19 Dose: Not Given Documented by: Sodium Chloride (Normal Saline) 100 mls @ 100 mls/hr IV ASDIRECTED [facility] Last Admin: 09/20/20 15:39 Dose: 100 mls/hr Documented by: Ciprofloxacin/Dextrose 400 mg/ (Premix) 200 mls @ 200 mls/hr IV Q8H [facility] Last Admin: 09/14/20 07:55 Dose: 200 mls/hr Documented by: Levofloxacin/Dextrose 250 mg/ (Premix) 50 mls @ 100 mls/hr IV Q24H [facility] Stop: 09/25/20 17:01 Last Admin: 09/20/20 16:59 Dose: 100 mls/hr Documented by: Levofloxacin/Dextrose 500 mg/ (Premix) 100 mls @ 100 mls/hr IV Q24H [facility] Stop: 09/25/20 23:59 Last Admin: 09/20/20 15:39 Dose: 100 mls/hr Documented by: Insulin Aspart (Insulin Aspart 100 Units/Ml 3 Ml Pen) 0 unit SUBCUT WITHMEALSANDBED [facility]; Protocol Last Admin: 09/10/20 12:09 Dose: 6 units Documented by: Insulin Aspart (Insulin Aspart 100 Units/Ml 3 Ml Pen) 12 unit SUBCUT ONETIME ONE Stop: 09/12/20 16:39 Last Admin: 09/12/20 17:02 Dose: 12 units Documented by: Insulin Aspart (Insulin Aspart 100 Units/Ml 3 Ml Pen) 10 unit SUBCUT ONETIME ONE Stop: 09/12/20 17:59 Last Admin: 09/12/20 18:18 Dose: 10 unit Documented by: Insulin Glargine (Insulin Glargine,Human Rec. Analog 100 Units/Ml 3 Ml Pen) 8 units SUBCUT BID [facility] Last Admin: 09/11/20 21:00 Dose: 8 unit Documented by: Insulin Glargine (Insulin Glargine,Human Rec. Analog 100 Units/Ml 3 Ml Pen) 10 units SUBCUT BID [facility] Last Admin: 09/13/20 08:01 Dose: 10 units Documented by: Insulin Glargine (Insulin Glargine,Human Rec. Analog 100 Units/Ml 3 Ml Pen) 12 units SUBCUT BEDTIME ONE Stop: 09/12/20 22:01 Last Admin: 09/12/20 22:19 Dose: 12 units Documented by: Mirtazapine (Mirtazapine 15 Mg Tab) 15 mg PO BEDTIME [facility] Last Admin: 09/23/20 21:31 Dose: 15 mg Documented by: Mycophenolate Mofetil (Mycophenolate Mofetil 500 Mg Tab) Confirm Administered Dose 500 mg .ROUTE .STK-MED ONE Stop: 10/08/20 21:16 Last Admin: 10/08/20 21:17 Dose: Not Given Documented by: Mycophenolate 500mg (Tab - Ptom) 2 each PO BID@1000,2200 [facility] Last Admin: 09/14/20 09:49 Dose: 2 each Documented by: Tacrolimus 0.5mg Cap (- Ptom) 1 each PO BEDTIME [facility] Last Admin: 09/13/20 21:06 Dose: 1 each Documented by: Pravastatin 20mg Tab (- Ptom) 1 each PO BEDTIME [facility] Last Admin: 09/13/20 21:07 Dose: 1 each Documented by: Tacrolimus 1mg Cap - (Ptom) 1 each PO QAM [facility] Last Admin: 09/14/20 08:01 Dose: 1 each Documented by: Polyethylene Glycol (Polyethylene Glycol 3350 Powder 17 Gm Packet) 17 gm PO DAILY [facility] Sodium Chloride (Sodium Chloride 0.9% 10 Ml Syringe) 10 ml FLUSH Q8HR PRN PRN Reason: IV Use Last Admin: 09/22/20 22:38 Dose: 10 ml Documented by: Sodium Chloride (Sodium Chloride 0.9% 10 Ml Syringe) 10 ml FLUSH 0900,2100 [facility] Last Admin: 09/23/20 10:11 Dose: 10 ml Documented by: Sodium Hypochlorite (Sodium Hypochlorite 0.25% Top Soln 473 Ml Bot) 1 ml TOP TID [facility] Last Admin: 09/19/20 09:37 Dose: Not Given Documented by: Sodium Hypochlorite (Sodium Hypochlorite 0.25% Top Soln 473 Ml Bot) 1 ml TOP BID [facility] Last Admin: 10/01/20 20:22 Dose: Not Given Documented by: Tramadol HCl (Tramadol 50 Mg Tab) 50 mg PO Q6H PRN PRN Reason: Pain Last Admin: 09/15/20 11:57 Dose: 50 mg Documented by: Zinc Gluconate (Zinc (Zinc Gluconate) 50 Mg Tab) 50 mg PO DAILY [facility] Last Admin: 10/04/20 09:42 Dose: 50 mg Documented by: - Exam Quality Assessment: Skin Breakdown (left heel ulceration, tagaderm in place; heel boot. Wound vac in place to left heel). No: Supplemental Oxygen General: Alert, Oriented, Cooperative, No Acute Distress HEENT: Pupils Equal, Mucous Membr. Moist/[place] Neck: Supple Lungs: Clear to Auscultation, Normal Respiratory Effort Cardiovascular: Regular Rate, Regular Rhythm, Murmurs GI/Abdominal Exam: Normal Bowel Sounds, Soft, Non-Tender, No Distention (Male) Exam: Deferred Extremities: No Pedal Edema. No: Increased Warmth, Redness Skin: Warm, Dry Wound/Incisions: Dressing Dry and Intact, No Drainage. No: Erythema Neurological: No New Focal Deficit, Normal Speech Psy/Mental Status: Alert, Normal Affect, Normal Mood - Patient Data Result Diagrams: 10/11/20 13:20 10/11/20 13:20 Sepsis Event Note - Evaluation Sepsis Screening Result: No Definite Risk - Focused Exam Vital Signs: Vital Signs Temp Pulse Pulse Resp BP BP Pulse Ox 10/11/20 08:39 99 F 88 18 155/76 H 95 10/11/20 08:34 88 155/76 H - Problem List Review Problem List Initiated/Reviewed/Updated: Yes - My Orders Last 24 Hours: My Active Orders 10/11/20 10:19 CBC WITH AUTO DIFF [HEME] Routine 10/11/20 10:20 CMP [COMPREHENSIVE METABOLIC PN,CMP] [CHEM] Routine - Plan Plan:: HPI summary/Acute hospitalization course: Mr Nagel is an 80 year old chronically ill, elderly male patient with a history notable for CKD s/p renal transplant (2012), DMT2, and PAD, with a right heel ulcer present since mid-June who was admitted to inpatient status via the ED on 09/05/20 for suspected sepsis after presenting with tachypnea, hypotension, increased confusion, and elevated lactate (2.4) for which source was presumed to be right heel ulcer. Initial qSOFA 06/04. He was started on IVF and IV vancomycin and had debridement and bone biopsy performed on 09/06/[address] Rosalinda Fajardo. Lactate normalized upon recheck. Blood cultures without growth. PICC line placed on 09/07/20. He had clinical improvement and given need for intensive wound care and ongoing IV antibiotic therapy as well as physical rehabilitation in the setting of profound deconditioning/debility, he was admitted to swing bed status. Pertinent recent wound care history: taken from previous documentation 07/04/20: Initial evaluation for wound. Debridement performed. Started ciprofloxacin/TMP-SMX for 5 days. 07/18/20: Referral to podiatry/wound care. Started doxycycline for 21 days. 08/01/20: Angioplasty to R superficial femoral, tibioperoneal, peroneal, and anterior tibial arteries. 08/23/20: Medi-honey gel and ABD to wound left in place x2 days. Instructed to offload heel entirely, float heel when in bed or recliner, and use toe touch weight bearing to the right foot with DARCO shoe if must ambulate. 08/25/20: First larval dose applied. 08/28/20: Second larval dose applied. Prior authorization for wound vac placed, with plan to consider once wound base better optimized. 08/30/20: Third larval dose applied. 09/01/20: Fourth larval dose applied. Scheduled podiatry re-evaluation for consideration for negative pressure therapy, biologics (Grafix vs [place]?), and calcanectomy. 09/04/20: Started Dakins 0.125% WTD dressings. 09/05/20: Admitted to [facility] for possible sepsis due to foot infection. Started on vancomycin IV. 09/06/20: Was scheduled to see vascular surgery, podiatry, and wound care at [facility] to discuss plan of care, but was admitted the evening prior to [facility]. Debridement and bone biopsy under anesthesia performed by Rosalinda Fajardo MD. Wound culture grew E. coli, P. aeruginosa, enterococcus, and S. marcescens; pansensitive to fluoroquinolones. Bone biopsy revealed no evidence of osteomyelitis. 09/11/20: Antibiotic regimen changed from vancomycin to ciprofloxacin IV. 09/14/20: Wound culture revealed S. maltophilia sensitive to levofloxacin and TMP-SMX. Antibiotic regimen changed from ciprofloxacin to levofloxacin IV. 09/18/20: Saw Dr. Call, podiatry at [facility]. Plans to start larval therapy again on 09/21/20. Weight bearing as tolerated encouraged. 09/20/20: Antibiotics discontinued after coordination with podiatry and wound care. 09/21/20: Fifth larval dose applied today to assist with debridement of site with a larval cage. 09/24/20: Larvae removed, restarted dakin's 0.125% WTD BID to heel 09/27/20: Seen in [place], Wound cleaned/debridement down into the level of bone. Dsg medihoney gel, collagen and a durable negative pressure wound vac therapy applied with continuous therapy at 120 mmHg 10/11/20: Daughter Kayleigh requesting CBC and CMP as patient reports chills and reportedly does not tend to run a temp when ill. Labs ordered, however patient initially refused, nursing encouraged patient to complete labs as daughter is concerned and he responded "that's tough." Patient did consent to having labs completed later in the day which were rather unremarkable; WBC 9.84, Hgb 9.6 (increased from prior), plt 254, Na 138, K 4.7, BUN 44, Creatinine 0.85, total protein 6.0, albumin 0.85. Nursing encouraged patient to get up to the chair with assistance and patient declines this in presence of provider. He states he would prefer to stay "right where I am." Care conference completed 10/11/20 - Family elects to have patient discharged home with home health on Friday10/16/20. Patient will receive services from [facility] out of [facility]. Wound care clinic in [place] to arrange for patient to have wound vac on outpatient basis and this will be monitored by home health. Physical Therapy has indicated that patient would benefit from durable medical equipment at home including gregorio lift with full body sling with commode opening to transfer patient between the bed, chair, wheelchair and commode as without the lift at home patient would be confined to his bed due to wound vac to the right heel and ulceration of the left heel in addition to physical debilitation. Patient will also need a variable height, semi electric hospital bed to allow for frequent changes in body position and to allow for ability to permit for transfers using the gregorio lift. Hospitalization problems and plan: # Right heel ulcer, full thickness. - Wound vac applied per Hardingtamia Ascencio. # Left heel ulcer - tagaderm in place, heel boot in place. Encourage patient to refrain from crossing his legs with his left heel upon his crespo # Deconditioning/debility - Physical therapy, Reviewed PT notes: Participation levels vary from poor to fair. Minimal improvement with therapy. # Generalized pain - Continue Tylenol, SalanPas, and diclofenac gel prn # DMT2: 08/01/20 A1c 7.6. Poor appetite, Cayden for additional nutritional support. Daughter, Kayleigh requesting to increase insulin due to blood glucose consistently over 200. - 10/11/20 - Will increase lantus to 14units sub-q twice daily from 12 units twice daily due to blood glucose consistently in the 200s. # Anemia of chronic disease and vitamin B12 deficiency:Decreased from baseline during acute hospitalization. B12 repleted, folate normal, and iron panel without iron deficiency. - Continue B12 500mcg daily Resolved hospitalization problems: # Possible osteomyelitis, ruled out # History of sepsis, resolved # Bacterial conjunctivitis, resolved Chronic, stable conditions: # Hx TIA / CAD s/p CABG / PAD s/p RLE angioplasty 08/01/20 / HLD: Continue clopidogrel 75mg daily, metoprolol succinate 50mg daily, pravastatin 20mg. # Aortic stenosis: 05/19/20 echo with mild aortic stenosis. # Diastolic dysfunction: 05/19/20 echo with grade 1 diastolic dysfunction. Stable fluid status. No diuretics at baseline. # GERD: Controlled. Continue [id number]. # Constipation: Stable. Continue docusate 100mg BID, Senna-docusate daily prn, bisacodyl prn. # S/p cadaveric renal transplant (2012) / History of BK viremia: 09/13/20 tacrolimus level 4.2. Continue tacrolimus 1/0.5mg BID, mycophenolate 1000mg BID, prednisone 5mg daily. Managed by nephrology Dr. Hall last app06/16/20. # Hypomagnesemia: 08/02/20 Mg 1.9. Continue magnesium oxide 500mg daily. # Osteopenia: Last Dexa Date 07/09/2016. Continue alendronate weekly, calcitriol 0.25mcg MWF, vitamin D 50mcg daily. # Protein-calorie malnutrition / Weight loss: Stable recently. Continue MV daily, zinc 50mg daily. Improvement since prior initiation of mirtazapine. Appreciate dietary consult. Monitor weight weekly. # MCI: Stable.Continue donepezil 10mg daily. # Depression / Insomnia: Improved recently. Continue mirtazapine 15mg daily. Monitor closely. # History SCC of R ear, L arm, and R forearm: S/p multiple excisions. Followed by dermatology. Hospitalization details: # FEN: No IVF. Electrolytes normal. Informed nursing staff to ensure Diabetic diet to aid in wound healing, encourage protein due to low albumin. # PPX: DVT ppx not indicated during swing bed stay. Will hold off on melatonin for delirium ppx given current use of mirtazapine. # Code status: Updated on 09/24/20 to reflect DNR/DNI. # Emergency contact: , Fiordaliza. # Disposition: Plan for discharge home with home health on 10/16/20. Patient will need wound vac to be arranged by wound care prior to discharge for ongoing treatment of right heel ulcer. Orders to be placed for DME for gregorio lift and hospital bed. This is the Order & Face to Face Encounter for home health services to include: Nursing, Physical Therapy, Occupational therapy, Home health aide Clinical findings to support the need for home health: Deconditioned status, physical debilitation, Bilateral heel ulcers Health teaching for medication management Develop in home therapy program Diabetes management and education Pain & symptom control In home safety assessment/instruction Strength and endurance Wound care and assessment, monitoring of bilateral heel ulcers and wound vac management Home management of multiple disease processes Support for home bound status: Limited or decreased strength/endurance due to fatigue, pain, muscle weakness Unsteady gait Exacerbation of disease Risk for infection Bed bound/chair bound - need for gregorio lift to transfer Patient will be followed by [facility] out of [place], [place] in the community setting and will sign home health orders. DME Orders to include: 1 -Gregorio lift with full body sling with commode opening 2 - Semi electric, variable height hospital bed DME start date - 10/16/20 upon discharge home with home health
[2020-10-11 14:00] LABS: ANION GAP 10.6 mmol/L (5-15); CHLORIDE,CL 102 mmol/L (98-107); SODIUM,NA 138 mmol/L (136-145)
[2020-10-11] MEDS: Magnesium Oxide 500 MG Tab PO SCH (21:15)
[2020-10-11] MEDS: Donepezil 10 MG Tab PO SCH (21:15)
[2020-10-11] MEDS: Calcitriol 0.25 MCG Cap PO SCH (21:15)
[2020-10-11] MEDS: Tacrolimus 0.5 MG Cap PO SCH (21:15)
[2020-10-11] MEDS: Famotidine 20 MG Tab PO SCH (21:16)
[2020-10-11] MEDS: Pravastatin 20 MG Tab PO SCH (21:16)
[2020-10-11] MEDS: Mirtazapine 15 MG Tab PO SCH (21:18)
[2020-10-12] MEDS: Polyethylene Glycol 3350 Powder 17 GM Packet PO SCH ×2 (11:01→12:24)
[2020-10-12] MEDS: Docusate Sodium 100 MG Cap PO SCH ×3 (11:01→20:31)
[2020-10-12] MEDS: Insulin Glargine,Human Rec. Analog 100 Units/ML 3 ML Pen SUBCUT SCH ×2 (11:01→20:24)
[2020-10-12] MEDS: Multivitamins with Minerals/Iron/Folic Acid/Lycopene Tab PO SCH ×2 (11:01→12:26)
[2020-10-12] MEDS: Insulin Aspart 100 Units/ML 3 ML Pen SUBCUT SCH ×8 (11:01→22:05)
[2020-10-12] MEDS: predniSONE 5 MG Tab PO SCH ×2 (11:02→12:26)
[2020-10-12] MEDS: Tacrolimus 1 MG Cap PO SCH ×2 (11:02→12:25)
[2020-10-12] MEDS: SALONPAS TOP SCH ×2 (11:02→22:13)
[2020-10-12] MEDS: Cyanocobalamin (Vitamin B12) 500 MCG Tab PO SCH ×2 (11:02→12:26)
[2020-10-12] MEDS: Acetaminophen 325 MG Tab PO SCH ×3 (11:02→20:31)
[2020-10-12] MEDS: JUVEN PO SCH ×3 (11:02→20:32)
[2020-10-12] MEDS: Metoprolol Succinate 50 MG Tab.ER PO SCH ×2 (11:02→12:26)
[2020-10-12] MEDS: Cholecalciferol (Vitamin D3) 25 MCG Tab PO SCH ×2 (11:02→12:25)
[2020-10-12] MEDS: Clopidogrel 75 MG Tab PO SCH ×2 (11:02→12:26)
[2020-10-12] MEDS: Tacrolimus 0.5 MG Cap PO SCH (20:30)
[2020-10-12] MEDS: Famotidine 20 MG Tab PO SCH (20:30)
[2020-10-12] MEDS: Magnesium Oxide 500 MG Tab PO SCH (20:30)
[2020-10-12] MEDS: Mirtazapine 15 MG Tab PO SCH (20:31)
[2020-10-12] MEDS: Donepezil 10 MG Tab PO SCH (20:31)
[2020-10-12] MEDS: Pravastatin 20 MG Tab PO SCH (20:31)
[2020-10-13] MEDS: Polyethylene Glycol 3350 Powder 17 GM Packet PO SCH (08:09)
[2020-10-13] MEDS: Insulin Aspart 100 Units/ML 3 ML Pen SUBCUT SCH ×7 (08:16→21:01)
[2020-10-13] MEDS: Insulin Glargine,Human Rec. Analog 100 Units/ML 3 ML Pen SUBCUT SCH ×2 (08:17→20:08)
[2020-10-13] MEDS: Metoprolol Succinate 50 MG Tab.ER PO SCH (08:19)
[2020-10-13] MEDS: Cholecalciferol (Vitamin D3) 25 MCG Tab PO SCH (08:19)
[2020-10-13] MEDS: Acetaminophen 325 MG Tab PO SCH ×3 (08:19→20:08)
[2020-10-13] MEDS: Docusate Sodium 100 MG Cap PO SCH ×2 (08:19→20:08)
[2020-10-13] MEDS: Tacrolimus 1 MG Cap PO SCH (08:19)
[2020-10-13] MEDS: Cyanocobalamin (Vitamin B12) 500 MCG Tab PO SCH (08:19)
[2020-10-13] MEDS: Clopidogrel 75 MG Tab PO SCH (08:20)
[2020-10-13] MEDS: predniSONE 5 MG Tab PO SCH (08:20)
[2020-10-13] MEDS: Multivitamins with Minerals/Iron/Folic Acid/Lycopene Tab PO SCH (08:21)
[2020-10-13] MEDS: JUVEN PO SCH ×2 (09:00→20:07)
[2020-10-13] MEDS: SALONPAS TOP SCH ×2 (10:43→21:02)
--- NOTE | 2020-10-13 11:15 | PCM.SN.2 ---
- Free Text/Narrative Note: Discharge medications reconciled in [facility] and [facility] and medication list sent to [facility] to fill pill packs.
[2020-10-13] MEDS: Pravastatin 20 MG Tab PO SCH (20:07)
[2020-10-13] MEDS: Calcitriol 0.25 MCG Cap PO SCH (20:07)
[2020-10-13] MEDS: Donepezil 10 MG Tab PO SCH (20:07)
[2020-10-13] MEDS: Mirtazapine 15 MG Tab PO SCH (20:08)
[2020-10-13] MEDS: Famotidine 20 MG Tab PO SCH (20:08)
[2020-10-13] MEDS: Magnesium Oxide 500 MG Tab PO SCH (20:08)
[2020-10-13] MEDS: Tacrolimus 0.5 MG Cap PO SCH (20:08)
[2020-10-14] MEDS: Insulin Aspart 100 Units/ML 3 ML Pen SUBCUT SCH ×7 (08:18→21:44)
[2020-10-14] MEDS: Multivitamins with Minerals/Iron/Folic Acid/Lycopene Tab PO SCH (08:23)
[2020-10-14] MEDS: Polyethylene Glycol 3350 Powder 17 GM Packet PO SCH (08:23)
[2020-10-14] MEDS: Docusate Sodium 100 MG Cap PO SCH ×2 (08:23→20:35)
[2020-10-14] MEDS: Tacrolimus 1 MG Cap PO SCH (08:24)
[2020-10-14] MEDS: Clopidogrel 75 MG Tab PO SCH (08:24)
[2020-10-14] MEDS: predniSONE 5 MG Tab PO SCH (08:24)
[2020-10-14] MEDS: Cyanocobalamin (Vitamin B12) 500 MCG Tab PO SCH (08:24)
[2020-10-14] MEDS: Cholecalciferol (Vitamin D3) 25 MCG Tab PO SCH (08:25)
[2020-10-14] MEDS: Acetaminophen 325 MG Tab PO SCH ×3 (08:28→20:40)
[2020-10-14] MEDS: Insulin Glargine,Human Rec. Analog 100 Units/ML 3 ML Pen SUBCUT SCH ×2 (08:34→21:44)
[2020-10-14] MEDS: JUVEN PO SCH ×2 (08:38→20:36)
[2020-10-14] MEDS: Metoprolol Succinate 50 MG Tab.ER PO SCH (09:50)
[2020-10-14] MEDS: SALONPAS TOP SCH ×2 (10:00→21:11)
[2020-10-14] MEDS: Donepezil 10 MG Tab PO SCH (20:35)
[2020-10-14] MEDS: Tacrolimus 0.5 MG Cap PO SCH (20:35)
[2020-10-14] MEDS: Pravastatin 20 MG Tab PO SCH (20:35)
[2020-10-14] MEDS: Mirtazapine 15 MG Tab PO SCH (20:35)
[2020-10-14] MEDS: Magnesium Oxide 500 MG Tab PO SCH (20:35)
[2020-10-14] MEDS: Famotidine 20 MG Tab PO SCH (20:35)
[2020-10-15] MEDS: Insulin Aspart 100 Units/ML 3 ML Pen SUBCUT SCH ×7 (08:35→21:11)
[2020-10-15] MEDS: Docusate Sodium 100 MG Cap PO SCH ×2 (08:48→21:14)
[2020-10-15] MEDS: Multivitamins with Minerals/Iron/Folic Acid/Lycopene Tab PO SCH (08:48)
[2020-10-15] MEDS: Insulin Glargine,Human Rec. Analog 100 Units/ML 3 ML Pen SUBCUT SCH ×2 (08:50→21:10)
[2020-10-15] MEDS: Clopidogrel 75 MG Tab PO SCH (08:51)
[2020-10-15] MEDS: Polyethylene Glycol 3350 Powder 17 GM Packet PO SCH (08:51)
[2020-10-15] MEDS: Tacrolimus 1 MG Cap PO SCH (08:52)
[2020-10-15] MEDS: Cyanocobalamin (Vitamin B12) 500 MCG Tab PO SCH (08:52)
[2020-10-15] MEDS: Acetaminophen 325 MG Tab PO SCH ×3 (08:52→21:16)
[2020-10-15] MEDS: Cholecalciferol (Vitamin D3) 25 MCG Tab PO SCH (08:52)
[2020-10-15] MEDS: predniSONE 5 MG Tab PO SCH (08:52)
[2020-10-15] MEDS: Metoprolol Succinate 50 MG Tab.ER PO SCH (08:58)
[2020-10-15] MEDS: JUVEN PO SCH ×2 (09:50→21:13)
[2020-10-15] MEDS: SALONPAS TOP SCH ×2 (10:00→21:18)
[2020-10-15] MEDS: Donepezil 10 MG Tab PO SCH (21:14)
[2020-10-15] MEDS: Pravastatin 20 MG Tab PO SCH (21:14)
[2020-10-15] MEDS: Famotidine 20 MG Tab PO SCH (21:15)
[2020-10-15] MEDS: Magnesium Oxide 500 MG Tab PO SCH (21:15)
[2020-10-15] MEDS: Tacrolimus 0.5 MG Cap PO SCH (21:15)
[2020-10-15] MEDS: Mirtazapine 15 MG Tab PO SCH (21:16)
[2020-10-16] MEDS: Insulin Aspart 100 Units/ML 3 ML Pen SUBCUT SCH ×7 (07:32→21:02)
[2020-10-16] MEDS: Multivitamins with Minerals/Iron/Folic Acid/Lycopene Tab PO SCH (08:09)
[2020-10-16] MEDS: Polyethylene Glycol 3350 Powder 17 GM Packet PO SCH (08:09)
[2020-10-16] MEDS: Cholecalciferol (Vitamin D3) 25 MCG Tab PO SCH (08:10)
[2020-10-16] MEDS: JUVEN PO SCH ×2 (08:10→21:07)
[2020-10-16] MEDS: predniSONE 5 MG Tab PO SCH (08:11)
[2020-10-16] MEDS: Cyanocobalamin (Vitamin B12) 500 MCG Tab PO SCH (08:11)
[2020-10-16] MEDS: Docusate Sodium 100 MG Cap PO SCH ×2 (08:11→21:01)
[2020-10-16] MEDS: Clopidogrel 75 MG Tab PO SCH (08:11)
[2020-10-16] MEDS: Metoprolol Succinate 50 MG Tab.ER PO SCH (08:11)
[2020-10-16] MEDS: Tacrolimus 1 MG Cap PO SCH (08:11)
[2020-10-16] MEDS: Insulin Glargine,Human Rec. Analog 100 Units/ML 3 ML Pen SUBCUT SCH ×2 (08:12→21:02)
[2020-10-16] MEDS: Acetaminophen 325 MG Tab PO SCH ×4 (08:23→21:05)
[2020-10-16] MEDS: SALONPAS TOP SCH ×2 (09:09→21:07)
[2020-10-16] MEDS: Magnesium Oxide 500 MG Tab PO SCH (20:59)
[2020-10-16] MEDS: Donepezil 10 MG Tab PO SCH (20:59)
[2020-10-16] MEDS: Pravastatin 20 MG Tab PO SCH (20:59)
[2020-10-16] MEDS: Famotidine 20 MG Tab PO SCH (20:59)
[2020-10-16] MEDS: Tacrolimus 0.5 MG Cap PO SCH (20:59)
[2020-10-16] MEDS: Calcitriol 0.25 MCG Cap PO SCH (21:01)
[2020-10-16] MEDS: Mirtazapine 15 MG Tab PO SCH (21:05)
[2020-10-17] MEDS: Cyanocobalamin (Vitamin B12) 500 MCG Tab PO SCH (09:47)
[2020-10-17] MEDS: Cholecalciferol (Vitamin D3) 25 MCG Tab PO SCH (09:48)
[2020-10-17] MEDS: Metoprolol Succinate 50 MG Tab.ER PO SCH (09:48)
[2020-10-17] MEDS: Polyethylene Glycol 3350 Powder 17 GM Packet PO SCH (09:51)
[2020-10-17] MEDS: Docusate Sodium 100 MG Cap PO SCH (09:51)
[2020-10-17] MEDS: Tacrolimus 1 MG Cap PO SCH (09:51)
[2020-10-17] MEDS: Clopidogrel 75 MG Tab PO SCH (09:51)
[2020-10-17] MEDS: predniSONE 5 MG Tab PO SCH (09:51)
[2020-10-17] MEDS: Insulin Glargine,Human Rec. Analog 100 Units/ML 3 ML Pen SUBCUT SCH (09:51)
[2020-10-17] MEDS: Multivitamins with Minerals/Iron/Folic Acid/Lycopene Tab PO SCH (09:51)
[2020-10-17] MEDS: Insulin Aspart 100 Units/ML 3 ML Pen SUBCUT SCH ×4 (09:52→12:32)
[2020-10-17 09:54] VITALS: BP 103/60; PULSE 91
[2020-10-17] MEDS: SALONPAS TOP SCH (09:57)
[2020-10-17] MEDS: Acetaminophen 325 MG Tab PO SCH (09:58)
[2020-10-17] MEDS: JUVEN PO SCH (10:07)
--- NOTE | 2020-10-17 12:09 | PCM.DCSUM1 ---
Discharge Summary - Hospital Course Free Text/Narrative:: Date of admission: 09/05/20 as inpatient, transferred to swing bed 09/08/20 Date of discharge: 10/17/20 Admission diagnoses: # Right heel ulcer, full thickness. - Wound vac applied per Mehdi Ascencio. # Deconditioning/debility # Generalized pain # DMT2 # Anemia of chronic disease Resolved hospitalization problems: # Possible osteomyelitis, ruled out # History of sepsis, resolved # Bacterial conjunctivitis, resolved Discharge diagnoses: # Right heel ulcer, full thickness # left heel ulcer # Deconditioning/debility # Hx TIA / CAD s/p CABG / PAD s/p RLE angioplasty 08/01/20 / HLD: Takes clopidogrel 75mg daily, metoprolol succinate 50mg daily, pravastatin 20mg. # Aortic stenosis: 05/19/20 echo with mild aortic stenosis. # Diastolic dysfunction: 05/19/20 echo with grade 1 diastolic dysfunction. Stable fluid status. No diuretics at baseline. # Diabetes mellitus, type II # Anemia of chronic disease # Vitamin B12 deficiency # GERD: Controlled. Takes [id number]. # Constipation: Stable. Takes docusate 100mg BID, Senna-docusate daily prn, bisacodyl prn. # Generalized pain # S/p cadaveric renal transplant (2012) / History of BK viremia: 09/13/20 tacrolimus level 4.2. Continue tacrolimus 1/0.5mg BID, mycophenolate 1000mg BID, prednisone 5mg daily. Managed by nephrology Dr. Sepulvedawith last app06/16/20. # Hypomagnesemia: 08/02/20 Mg 1.9. Takes magnesium oxide 500mg daily. # Osteopenia: Last Dexa Date 07/09/2016. Takes alendronate weekly, calcitriol 0.25mcg MWF, vitamin D 50mcg daily. # Protein-calorie malnutrition / Weight loss: Stable recently. Continue MV daily, zinc 50mg daily, improved with mirtazepine # MCI: Stable.Takes donepezil 10mg daily. # Depression / Insomnia: Improved recently. Takes mirtazapine 15mg daily. # History SCC of R ear, L arm, and R forearm: S/p multiple excisions. Followed by dermatology. Hospital course: HPI summary/Acute hospitalization course: Mr Nagel is an 80 year old chronically ill, elderly male patient with a history notable for CKD s/p renal transplant (2012), DMT2, and PAD, with a right heel ulcer present since mid who was admitted to inpatient status via the ED on 09/05/20 for suspected sepsis after presenting with tachypnea, hypotension, increased confusion, and elevated lactate (2.4) for which source was presumed to be right heel ulcer. Initial qSOFA 06/04. He was started on IVF and IV vancomycin and had debridement and bone biopsy performed on 09/06/[address] Rosalinda Fajardo. Lactate normalized upon recheck. Blood cultures without growth. PICC line placed on 09/07/20. He had clinical improvement and given need for intensive wound care and ongoing IV antibiotic therapy as well as physical rehabilitation in the setting of profound deconditioning/debility, he was admitted to swing bed status. Pertinent recent wound care history: taken from previous documentation 07/04/20: Initial evaluation for wound. Debridement performed. Started ciprofloxacin/TMP-SMX for 5 days. 07/18/20: Referral to podiatry/wound care. Started doxycycline for 21 days. 08/01/20: Angioplasty to R superficial femoral, tibioperoneal, peroneal, and anterior tibial arteries. 08/23/20: Medi-honey gel and ABD to wound left in place x2 days. Instructed to offload heel entirely, float heel when in bed or recliner, and use toe touch weight bearing to the right foot with DARCO shoe if must ambulate. 08/25/20: First larval dose applied. 08/28/20: Second larval dose applied. Prior authorization for wound vac placed, with plan to consider once wound base better optimized. 08/30/20: Third larval dose applied. 09/01/20: Fourth larval dose applied. Scheduled podiatry re-evaluation for consideration for negative pressure therapy, biologics (Grafix vs [place]?), and calcanectomy. 09/04/20: Started Dakins 0.125% WTD dressings. 09/05/20: Admitted to [facility] for possible sepsis due to foot infection. Started on vancomycin IV. 09/06/20: Was scheduled to see vascular surgery, podiatry, and wound care at [facility] to discuss plan of care, but was admitted the evening prior to MARIO Bernstein. Debridement and bone biopsy under anesthesia performed by Rosalinda Fajardo MD. Wound culture grew E. coli, P. aeruginosa, enterococcus, and S. marcescens; pansensitive to fluoroquinolones. Bone biopsy revealed no evidence of osteomyelitis. 09/11/20: Antibiotic regimen changed from vancomycin to ciprofloxacin IV. 09/14/20: Wound culture revealed S. maltophilia sensitive to levofloxacin and TMP-SMX. Antibiotic regimen changed from ciprofloxacin to levofloxacin IV. 09/18/20: Saw Dr. Call, podiatry at [facility]. Plans to start larval therapy again on 09/21/20. Weight bearing as tolerated encouraged. 09/20/20: Antibiotics discontinued after coordination with podiatry and wound care. 09/21/20: Fifth larval dose applied today to assist with debridement of site with a larval cage. 09/24/20: Larvae removed, restarted dakin's 0.125% WTD BID to heel 09/27/20: Seen in [place], Wound cleaned/debridement down into the level of bone. Dsg medihoney gel, collagen and a durable negative pressure wound vac therapy applied with continuous therapy at 120 mmHg 10/11/20: Daughter Kayleigh requesting CBC and CMP as patient reports chills and reportedly does not tend to run a temp when ill. Labs ordered, however patient initially refused, nursing encouraged patient to complete labs as daughter is concerned and he responded "that's tough." Patient did consent to having labs completed later in the day which were rather unremarkable; WBC 9.84, Hgb 9.6 (increased from prior), plt 254, Na 138, K 4.7, BUN 44, Creatinine 0.85, total protein 6.0, albumin 0.85. Nursing encouraged patient to get up to the chair with assistance and patient declines this in presence of provider. He states he would prefer to stay "right where I am." Care conference completed 10/11/20 - Family elects to have patient discharged home with home health on Friday10/16/20. Patient will receive services from [facility] out of [place], [place]. Wound care clinic in [place] to arrange for patient to have wound vac on outpatient basis and this will be monitored by home health. Physical Therapy has indicated that patient would benefit from durable medical equipment at home including gregorio lift with full body sling with commode opening to transfer patient between the bed, chair, wheelchair and c ommode as without the lift at home patient would be confined to his bed due to wound vac to the right heel and ulceration of the left heel in addition to physical debilitation. Patient will also need a variable height, semi electric hospital bed to allow for frequent changes in body position and to allow for ability to permit for transfers using the gregorio lift. This is the Order & Face to Face Encounter for home health services to include: Nursing, Physical Therapy, Occupational therapy, Home health aide Clinical findings to support the need for home health: Deconditioned status, physical debilitation, Bilateral heel ulcers Health teaching for medication management Develop in home therapy program Diabetes management and education Pain & symptom control In home safety assessment/instruction Strength and endurance Wound care and assessment, monitoring of bilateral heel ulcers and wound vac management Home management of multiple disease processes Support for home bound status: Limited or decreased strength/endurance due to fatigue, pain, muscle weakness Unsteady gait Exacerbation of disease Risk for infection Bed bound/chair bound - need for gregorio lift to transfer Patient will be followed by [facility] out [place], [place] in the community setting and will sign home health orders. DME Orders to include: 1 -Gregorio lift with full body sling with commode opening 2 - Semi electric, variable height hospital bed DME start date - 10/16/20 upon discharge home with home health Discharge and follow-up recommendations: - Discharge to home with [facility], wound care management per [place] [facility]. - New medications at discharge: Updated per Dr Jerez - Discharge Data Discharge Date: 10/17/20 Discharge Disposition: Home, W Home Health Agency 06 Condition: Poor - Referral to Home Health Date of Face to Face Encounter: 10/11/20 Reason for Homebound Status: See 10/11 progress note. Primary Care Physician: Kayleigh Jerez MD Skilled Need: See 10/11 progress note. - Patient Summary/Data Consults: Consultations 09/08/20 12:50 Consult to Case Management/Clinical Trial Specialist [CONS] Routine Consult to Cotton Ginner [CONS] Routine Consult to Physical Therapy [PT Evaluation and Treatment] [CONS] Routine 10/03/20 13:17 Consult to Dietary [Consult to Cotton Ginner] [CONS] Routine - Patient Instructions Diet: Usual Diet as Tolerated Activity: As Tolerated - Discharge Plan *PRESCRIPTION DRUG MONITORING PROGRAM REVIEWED*: Not Applicable *COPY OF PRESCRIPTION DRUG MONITORING REPORT IN PATIENT CHARLEY: Not Applicable Home Medications: Home Meds Cholecalciferol (Vitamin D3) [Vitamin D3] 2,000 unit PO QAM 05/20/13 [History] Famotidine 20 mg PO BEDTIME 05/20/13 [History] Insulin Aspart [Novolog Flexpen] 6 unit SQ TIDM 05/20/13 [History] Magnesium Oxide 500 mg PO BEDTIME 05/20/13 [History] predniSONE 5 mg PO QAM 05/20/13 [History] Tacrolimus [Prograf] 1 mg PO QAM 06/08/13 [History] Calcitriol 0.25 mcg PO MOWEFR 01/12/17 [History] Metoprolol Succinate [Toprol XL] 50 mg PO QAM 01/12/17 [History] Tacrolimus [Prograf] 0.5 mg PO BEDTIME 01/12/17 [History] mycophenolate mofetiL [Cellcept] 1,000 mg PO DAILY@1000,2200 01/12/17 [History] Clopidogrel Bisulfate [Plavix] 75 mg PO QAM 08/19/20 [History] Cyanocobalamin (Vitamin B-12) [B-12] 1,000 mcg PO QAM 08/19/20 [History] Donepezil HCl [Aricept] 10 mg PO BEDTIME 08/19/20 [History] Pravastatin [Pravachol] 20 mg PO BEDTIME 08/19/20 [History] Docusate Sodium [Colace] 100 mg PO BID cap 10/13/20 [Rx] Docusate Sodium/Sennosides [Senna Plus] 1 tab PO DAILY PRN tablet 10/13/20 [Rx] FA/Lycopene/Lut/MV,Ca,Iron,Min [Centrum] 1 tab PO DAILY tablet 10/13/20 [Rx] Insulin Detemir [Levemir] 14 units SUBCUT BID #0 10/13/20 [Rx] Mirtazapine [Remeron] 22.5 mg PO BEDTIME tablet 10/13/20 [Rx] polyethylene glycoL 3350 [MiraLAX] 17 gm PO DAILY packet 10/13/20 [Rx] Referrals: [facility] [Outside] - Discharge Summary/Plan Comment DC Time >30 min.: Yes - General Info Date of Service: 10/17/20 Functional Status: Reports: Pain Controlled, Tolerating Diet. Denies: Ambulating, New Symptoms - Review of Systems General: Reports: Weakness, Fatigue HEENT: Reports: No Symptoms Pulmonary: Reports: No Symptoms. Denies: Shortness of Breath, Cough Cardiovascular: Reports: No Symptoms. Denies: Chest Pain, Palpitations, Edema Gastrointestinal: Reports: No Symptoms. Denies: Abdominal Pain, Constipation, Nausea Genitourinary: Reports: No Symptoms Musculoskeletal: Reports: No Symptoms Skin: Reports: Other (wound vac to right heel, dressing to left heel ulcer) Neurological: Reports: Weakness Psychiatric: Reports: No Symptoms - Patient Data Vitals - Most Recent: Last Vital Signs Temp 98.6 F 10/17/20 09:00 Pulse 91 10/17/20 09:48 Resp 16 10/17/20 09:00 BP 103/60 10/17/20 09:48 Pulse Ox 96 10/17/20 09:00 Weight - Most Recent: 150 lb I&O - Last 24 hours: Intake & Output 10/16/20 10/17/20 10/17/20 22:59 06:59 14:59 Intake Total 600 50 Output Total 600 Balance 600 -550 Med Orders - Current: Current Medications Acetaminophen (Acetaminophen 325 Mg Tab) 650 mg PO TID [facility] Last Admin: 10/17/20 09:58 Dose: Not Given Documented by: Acetaminophen (Acetaminophen 325 Mg Tab) 650 mg PO Q6H PRN PRN Reason: Pain (Mild or moderate 1-6) Last Admin: 10/17/20 09:54 Dose: 650 mg Documented by: Calcitriol (Calcitriol 0.25 Mcg Cap) 0.25 mcg PO MOWEFR [facility] Last Admin: 10/16/20 21:01 Dose: 0.25 mcg Documented by: Cholecalciferol (Cholecalciferol (Vitamin D3) 25 Mcg Tab) 50 mcg PO DAILY [facility] Last Admin: 10/17/20 09:48 Dose: 50 mcg Documented by: Clopidogrel Bisulfate (Clopidogrel 75 Mg Tab) 75 mg PO QAM [facility] Last Admin: 10/17/20 09:51 Dose: 75 mg Documented by: Cyanocobalamin (Cyanocobalamin (Vitamin B12) 500 Mcg Tab) 1,000 mcg PO DAILY [facility] Last Admin: 10/17/20 09:47 Dose: 1,000 mcg Documented by: Docusate Sodium (Docusate Sodium 100 Mg Cap) 100 mg PO BID [facility] Last Admin: 10/17/20 09:51 Dose: 100 mg Documented by: Donepezil HCl (Donepezil 10 Mg Tab) 10 mg PO BEDTIME [facility] Last Admin: 10/16/20 20:59 Dose: 10 mg Documented by: Famotidine (Famotidine 20 Mg Tab) 20 mg PO BEDTIME [facility] Last Admin: 10/16/20 20:59 Dose: 20 mg Documented by: Glucagon (Glucagon,Human Recombinant 1 Mg Vial) 1 mg IM ASDIRECTED PRN PRN Reason: Hypoglycemia Insulin Aspart (Insulin Aspart 100 Units/Ml 3 Ml Pen) 0 unit SUBCUT WITHMEALSANDBED [facility]; Protocol Last Admin: 10/17/20 09:52 Dose: 2 units Documented by: Insulin Aspart (Insulin Aspart 100 Units/Ml 3 Ml Pen) 6 unit SUBCUT TIDMEALS [facility] Last Admin: 10/17/20 09:53 Dose: 6 unit Documented by: Insulin Glargine (Insulin Glargine,Human Rec. Analog 100 Units/Ml 3 Ml Pen) 14 units SUBCUT BID [facility] Last Admin: 10/17/20 09:51 Dose: 14 unit Documented by: Magnesium Oxide (Magnesium Oxide 500 Mg Tab) 500 mg PO BEDTIME [facility] Last Admin: 10/16/20 20:59 Dose: 500 mg Documented by: Metoprolol Succinate (Metoprolol Succinate 50 Mg Tab.Er) 50 mg PO QAM [facility] Last Admin: 10/17/20 09:48 Dose: 50 mg Documented by: Mirtazapine (Mirtazapine 15 Mg Tab) 22.5 mg PO BEDTIME [facility] Last Admin: 10/16/20 21:05 Dose: 22.5 mg Documented by: Multivitamins/Minerals (Multivitamins With Minerals/Iron/Folic Acid/Lycopene Tab) 1 tab PO DAILY [facility] Last Admin: 10/17/20 09:51 Dose: 1 tab Documented by: Mycophenolate Mofetil (Mycophenolate Mofetil 500 Mg Tab) 1,000 mg PO BID@1000,2200 [facility] Last Admin: 10/17/20 09:47 Dose: 1,000 mg Documented by: Cayden Powder Packet (23gm) 1 each PO BID [facility] Last Admin: 10/17/20 10:07 Dose: 1 each Documented by: Salonpas Patch( (Menthol,Camphor)) 1 each TOP Q12H [facility] Last Admin: 10/17/20 09:57 Dose: Not Given Documented by: Polyethylene Glycol (Polyethylene Glycol 3350 Powder 17 Gm Packet) 17 gm PO DAILY [facility] Last Admin: 10/17/20 09:51 Dose: 17 gm Documented by: Pravastatin Sodium (Pravastatin 20 Mg Tab) 20 mg PO BEDTIME [facility] Last Admin: 10/16/20 20:59 Dose: 20 mg Documented by: Prednisone (Prednisone 5 Mg Tab) 5 mg PO QAM [facility] Last Admin: 10/17/20 09:51 Dose: 5 mg Documented by: Senna/Docusate Sodium (Docusate Sodium/Sennosides 50-8.6 Mg Tab) 1 tab PO DAILY PRN PRN Reason: Constipation Last Admin: 09/24/20 21:11 Dose: 1 tab Documented by: Tacrolimus (Tacrolimus 1 Mg Cap) 1 mg PO QAM [facility] Last Admin: 10/17/20 09:51 Dose: 1 mg Documented by: Tacrolimus (Tacrolimus 0.5 Mg Cap) 0.5 mg PO BEDTIME [facility] Last Admin: 10/16/20 20:59 Dose: 0.5 mg Documented by: Discontinued Medications Acetaminophen (Acetaminophen 650 Mg Tab.Er) 650 mg PO Q8H PRN PRN Reason: Pain Last Admin: 09/09/20 09:42 Dose: 650 mg Documented by: Acetaminophen (Acetaminophen 325 Mg Tab) 650 mg PO Q6H PRN PRN Reason: Pain Last Admin: 09/16/20 06:10 Dose: 650 mg Documented by: Acetaminophen (Acetaminophen 325 Mg Tab) 650 mg PO Q4H [facility] Last Admin: 09/24/20 09:29 Dose: 650 mg Documented by: Hydrocodone Bitart/Acetaminophen (Acetaminophen/Hydrocodone 325-5 Mg Tab) 1 tab PO Q6H PRN PRN Reason: Pain (severe 7-10) Last Admin: 09/24/20 23:52 Dose: 1 tab Documented by: Bisacodyl (Bisacodyl 10 Mg Supp) 10 mg RECTAL ONETIME PRN PRN Reason: Constipation Last Admin: 09/08/20 14:15 Dose: 10 mg Documented by: Ceftriaxone Sodium (Ceftriaxone 1 Gm Vial) 1 gm IVPUSH Q24H [facility] Last Admin: 09/11/20 18:52 Dose: Not Given Documented by: Cyanocobalamin (Cyanocobalamin (Vitamin B12) 500 Mcg Tab) 500 mcg PO DAILY [facility] Last Admin: 10/13/20 08:19 Dose: 500 mcg Documented by: Dextrose/Water (50% Dextrose In Water 50 Ml Syringe) 50 ml IV ASDIRECTED PRN PRN Reason: Hypoglycemia Dextrose/Water (50% Dextrose In Water 50 Ml Syringe) 50 ml IV ASDIRECTED PRN PRN Reason: Hypoglycemia Diclofenac Sodium (Diclofenac Sodium 1% Gel 100 Gm Tube) 2 gm TOP QID PRN PRN Reason: Pain Last Admin: 09/21/20 09:12 Dose: 1 applic Documented by: Docusate Sodium (Docusate Sodium 100 Mg Cap) 100 mg PO BEDTIME [facility] Erythromycin (Erythromycin Base 0.5% Ophth Oint 3.5 Gm Tube) 1 gm EYEBOTH TID [facility] Last Admin: 09/15/20 08:40 Dose: Not Given Documented by: Glucagon (Glucagon,Human Recombinant 1 Mg Vial) 1 mg IM ASDIRECTED PRN PRN Reason: Hypoglycemia Vancomycin HCl 1 gm/ Sodium (Chloride) 250 mls @ 150 mls/hr IV 1000,2200 [facility] Last Admin: 09/11/20 06:19 Dose: Not Given Documented by: Sodium Chloride (Normal Saline) 100 mls @ 100 mls/hr IV ASDIRECTED [facility] Last Admin: 09/20/20 15:39 Dose: 100 mls/hr Documented by: Ciprofloxacin/Dextrose 400 mg/ (Premix) 200 mls @ 200 mls/hr IV Q8H [facility] Last Admin: 09/14/20 07:55 Dose: 200 mls/hr Documented by: Levofloxacin/Dextrose 250 mg/ (Premix) 50 mls @ 100 mls/hr IV Q24H [facility] Stop: 09/25/20 17:01 Last Admin: 09/20/20 16:59 Dose: 100 mls/hr Documented by: Levofloxacin/Dextrose 500 mg/ (Premix) 100 mls @ 100 mls/hr IV Q24H [facility] Stop: 09/25/20 23:59 Last Admin: 09/20/20 15:39 Dose: 100 mls/hr Documented by: Insulin Aspart (Insulin Aspart 100 Units/Ml 3 Ml Pen) 0 unit SUBCUT WITHMEALSANDBED [facility]; Protocol Last Admin: 09/10/20 12:09 Dose: 6 units Documented by: Insulin Aspart (Insulin Aspart 100 Units/Ml 3 Ml Pen) 12 unit SUBCUT ONETIME ONE Stop: 09/12/20 16:39 Last Admin: 09/12/20 17:02 Dose: 12 units Documented by: Insulin Aspart (Insulin Aspart 100 Units/Ml 3 Ml Pen) 10 unit SUBCUT ONETIME ONE Stop: 09/12/20 17:59 Last Admin: 09/12/20 18:18 Dose: 10 unit Documented by: Insulin Glargine (Insulin Glargine,Human Rec. Analog 100 Units/Ml 3 Ml Pen) 8 units SUBCUT BID [facility] Last Admin: 09/11/20 21:00 Dose: 8 unit Documented by: Insulin Glargine (Insulin Glargine,Human Rec. Analog 100 Units/Ml 3 Ml Pen) 10 units SUBCUT BID [facility] Last Admin: 09/13/20 08:01 Dose: 10 units Documented by: Insulin Glargine (Insulin Glargine,Human Rec. Analog 100 Units/Ml 3 Ml Pen) 12 units SUBCUT BEDTIME ONE Stop: 09/12/20 22:01 Last Admin: 09/12/20 22:19 Dose: 12 units Documented by: Insulin Glargine (Insulin Glargine,Human Rec. Analog 100 Units/Ml 3 Ml Pen) 12 units SUBCUT BID [facility] Last Admin: 10/11/20 08:37 Dose: 12 units Documented by: Mirtazapine (Mirtazapine 15 Mg Tab) 15 mg PO BEDTIME [facility] Last Admin: 09/23/20 21:31 Dose: 15 mg Documented by: Mycophenolate Mofetil (Mycophenolate Mofetil 500 Mg Tab) Confirm Administered Dose 500 mg .ROUTE .STK-MED ONE Stop: 10/08/20 21:16 Last Admin: 10/08/20 21:17 Dose: Not Given Documented by: Mycophenolate 500mg (Tab - Ptom) 2 each PO BID@1000,2200 [facility] Last Admin: 09/14/20 09:49 Dose: 2 each Documented by: Tacrolimus 0.5mg Cap (- Ptom) 1 each PO BEDTIME [facility] Last Admin: 09/13/20 21:06 Dose: 1 each Documented by: Pravastatin 20mg Tab (- Ptom) 1 each PO BEDTIME [facility] Last Admin: 09/13/20 21:07 Dose: 1 each Documented by: Tacrolimus 1mg Cap - (Ptom) 1 each PO QAM [facility] Last Admin: 09/14/20 08:01 Dose: 1 each Documented by: Polyethylene Glycol (Polyethylene Glycol 3350 Powder 17 Gm Packet) 17 gm PO DAILY [facility] Sodium Chloride (Sodium Chloride 0.9% 10 Ml Syringe) 10 ml FLUSH Q8HR PRN PRN Reason: IV Use Last Admin: 09/22/20 22:38 Dose: 10 ml Documented by: Sodium Chloride (Sodium Chloride 0.9% 10 Ml Syringe) 10 ml FLUSH 0900,2100 [facility] Last Admin: 09/23/20 10:11 Dose: 10 ml Documented by: Sodium Hypochlorite (Sodium Hypochlorite 0.25% Top Soln 473 Ml Bot) 1 ml TOP TID [facility] Last Admin: 09/19/20 09:37 Dose: Not Given Documented by: Sodium Hypochlorite (Sodium Hypochlorite 0.25% Top Soln 473 Ml Bot) 1 ml TOP BID [facility] Last Admin: 10/01/20 20:22 Dose: Not Given Documented by: Tramadol HCl (Tramadol 50 Mg Tab) 50 mg PO Q6H PRN PRN Reason: Pain Last Admin: 09/15/20 11:57 Dose: 50 mg Documented by: Zinc Gluconate (Zinc (Zinc Gluconate) 50 Mg Tab) 50 mg PO DAILY [facility] Last Admin: 10/04/20 09:42 Dose: 50 mg Documented by: - Exam Quality Assessment: Reports: Skin Breakdown (left heel ulcer with dressing applied, wound vac to R heel ). Denies: Supplemental Oxygen General: Reports: Alert, Oriented (alert to self, location: clinic, time: spring), Cooperative HEENT: Reports: Pupils Equal, Pupils Reactive, Mucous Membr. Moist/[place] Neck: Reports: Supple Lungs: Reports: Clear to Auscultation, Normal Respiratory Effort, Decreased Breath Sounds Cardiovascular: Reports: Regular Rate, Regular Rhythm, Murmurs GI/Abdominal Exam: Normal Bowel Sounds, Soft, Non-Tender, No Distention (Male) Exam: Deferred Rectal (Males) Exam: Deferred Back Exam: Reports: Normal Inspection Extremities: Non-Tender, No Pedal Edema Skin: Reports: Warm, Dry Wound/Incisions: Reports: Other (wound vac to R heel, dressing applied to L heel; wound care from [place] managing bilateral heel ulcers) Neurological: Reports: No New Focal Deficit, Normal Speech Psy/Mental Status: Reports: Alert
== END 2020-10-17 16:10 | disposition home health service (06) | DRG 638 ==
LOC: KA.MS 12:50
PROVIDERS: ADMIT Family Medicine; ATTEND Family Medicine
DX: E11.621 Type 2 diabetes mellitus with foot ulcer (principal); L97.419 Non-pressure chronic ulcer of right heel and midfoot with unspecified severity; Z94.0 Kidney transplant status; R53.1 Weakness; H91.90 Unspecified hearing loss, unspecified ear; K21.9 Gastro-esophageal reflux disease without esophagitis; E83.42 Hypomagnesemia; E53.8 Deficiency of other specified B group vitamins; G47.30 Sleep apnea, unspecified; Z66 Do not resuscitate; E11.51 Type 2 diabetes mellitus with diabetic peripheral angiopathy without gangrene; E11.22 Type 2 diabetes mellitus with diabetic chronic kidney disease; N18.9 Chronic kidney disease, unspecified; D63.1 Anemia in chronic kidney disease; I35.0 Nonrheumatic aortic (valve) stenosis; K59.00 Constipation, unspecified; M85.80 Other specified disorders of bone density and structure, unspecified site; F32.9 Major depressive disorder, single episode, unspecified; G47.00 Insomnia, unspecified; Z88.6 Allergy status to analgesic agent; Z86.14 Personal history of Methicillin resistant Staphylococcus aureus infection; Z85.828 Personal history of other malignant neoplasm of skin; Z79.4 Long term (current) use of insulin; Z79.52 Long term (current) use of systemic steroids; Z79.899 Other long term (current) drug therapy; Z79.02 Long term (current) use of antithrombotics/antiplatelets; Z95.1 Presence of aortocoronary bypass graft; Z86.73 Personal history of transient ischemic attack (TIA), and cerebral infarction without residual deficits
CPT/HCPCS: 36415; 80048; 80053; 80197; 80202; 81001; 82947; 82962; 85025; 87040; 87070; 87186; 87205; 93922; 93926; 97110-GP; 97162-GP; 97530-GP; 97537-GP; 97606; A9270-GY; J0744; J1815-GY; J1956; J3370; J7050; J7507; J7512